=== PATIENT | male | born 1940 | race Caucasian/White ===

== ENCOUNTER 2020-10-29 07:11 | Outpatient (CLI) | payer MEDICARE, SELFPAY ==
[2020-10-29 07:34] LABS: Add Urine Microscopic? YES; Appearance Urine Clear (Clear); Bilirubin Urine Negative (Negative); Blood Urine 1+ (Negative); Color Urine Yellow (Yellow); Glucose Urine UA Negative (Negative); Ketones Urine Negative (Negative); Leukocyte Esterase Ur Negative (Negative); Nitrate Urine Negative (Negative); Protein Urine Negative (Negative); Specific Grav Ur 1.025 (1.010-1.020)
[2020-10-29 07:38] LABS: Hemoglobin A1C 5.7 % (<5.7)
[2020-10-29 07:39] LABS: WBC Urine 0-3 /hpf (0-3)
[2020-10-29 07:40] LABS: Bacteria Urine None seen /hpf
[2020-10-29 07:54] LABS: Creatinine Urine 181.15 mg/dL (40-278); MALB Creatinine Ratio 7.1 mg/g (0-30); Microalbumin Urine Random < 13.0 mg/L
[2020-10-29 09:11] LABS: Alanine Aminotransferase 26 U/L (16-63); Albumin Level 4.1 g/dL (3.4-5.0); Alkaline Phosphatase 61 U/L (46-116); Anion Gap 6 mmol/L (8-16); Aspartate Amino Transferase 20 U/L (15-37); Bilirubin,Total 0.7 mg/dL (0.00-1.00); Blood Urea Nitrogen 23 mg/dL (7-18); Calcium 8.6 mg/dL (8.5-10.1); Carbon Dioxide 31 mmol/L (21-32); Chloride 106 mmol/L (98-108); Cholesterol 160 mg/dL (0-200); Creatine Kinase 85 U/L (39-308); Estimated Glomerular Filt Rate > 60; Glucose 84 mg/dL (70-99); HDL Direct 39 mg/dL (40-60); LDL Cholesterol Calculated 100 mg/dL (<130); Osmolality Calculated 298 mOsm/kg (285-295); Sodium 143 mmol/L (136-145); Total Protein 6.7 g/dL (6.4-8.2); Triglycerides 106 mg/dL (0-150)
== END 2020-10-29 07:12 | disposition home or self-care (01) ==
LOC: CHSLAB 07:12
PROVIDERS: PCP Internal Medicine; Visit Provider Internal Medicine
DX: E78.2 Mixed hyperlipidemia (principal); I10 Essential (primary) hypertension; R73.01 Impaired fasting glucose
CPT/HCPCS: 36415; 80053; 80061; 81001; 82043; 82550; 83036

== ENCOUNTER 2020-11-28 08:59 | Outpatient (CLI) | payer MEDICARE, SELFPAY ==
[2020-11-28 09:43] LABS: SARS-CoV-2 Ag Negative (Negative)
== END 2020-11-28 09:00 | disposition home or self-care (01) ==
LOC: CHSLAB 09:01
PROVIDERS: PCP Internal Medicine; Visit Provider Internal Medicine
DX: Z20.828 Contact with and (suspected) exposure to other viral communicable diseases (principal)
CPT/HCPCS: 87426

== ENCOUNTER 2021-04-30 07:03 | Outpatient (CLI) | payer MEDICARE, SELFPAY ==
[2021-04-30 07:28] LABS: Add Urine Microscopic? YES; Appearance Urine Clear (Clear); Bilirubin Urine Negative (Negative); Blood Urine 1+ (Negative); Color Urine Yellow (Yellow); Glucose Urine UA Negative (Negative); Ketones Urine Negative (Negative); Leukocyte Esterase Ur Negative (Negative); Nitrate Urine Negative (Negative); Protein Urine Negative (Negative); Specific Grav Ur 1.025 (1.010-1.020); Urobilinogen Urine 0.2 mg/dL (0.2-1.0)
[2021-04-30 08:08] LABS: Bacteria Urine Trace /hpf; RBC Urine 0-2 /hpf (0-2); WBC Urine None seen /hpf (0-3)
[2021-04-30 08:09] LABS: Mucus Urine Moderate /lpf
[2021-04-30 08:10] LABS: Hemoglobin A1C 5.6 % (<5.7)
[2021-04-30 08:33] LABS: Alanine Aminotransferase 20 U/L (16-63); Alkaline Phosphatase 70 U/L (46-116); Anion Gap 6 mmol/L (8-16); Aspartate Amino Transferase 14 U/L (15-37); Bilirubin,Total 0.8 mg/dL (0.00-1.00); Blood Urea Nitrogen 19 mg/dL (7-18); Calcium 8.9 mg/dL (8.5-10.1); Carbon Dioxide 33 mmol/L (21-32); Chloride 103 mmol/L (98-108); Cholesterol 152 mg/dL (0-200); Creatine Kinase 63 U/L (39-308); Estimated Glomerular Filt Rate > 60; Glucose 91 mg/dL (70-99); HDL Direct 40 mg/dL (40-60); LDL Cholesterol Calculated 94 mg/dL (<130); Osmolality Calculated 296 mOsm/kg (285-295); Sodium 142 mmol/L (136-145); Total Protein 6.6 g/dL (6.4-8.2); Triglycerides 92 mg/dL (0-150)
== END 2021-04-30 07:04 | disposition home or self-care (01) ==
LOC: CHSLAB 07:06
PROVIDERS: PCP Internal Medicine; Visit Provider Internal Medicine
DX: I10 Essential (primary) hypertension (principal); R73.01 Impaired fasting glucose; E78.2 Mixed hyperlipidemia
CPT/HCPCS: 36415; 80053; 80061; 81001; 82550; 83036

== ENCOUNTER 2021-05-24 15:37 | Emergency (ER) | payer MEDICARE, SELFPAY ==
--- NOTE | ~2021-05-24 | CT_ITS ---
EXAMINATION: CT abdomen pelvis w con DATE: 05/24/2021 17:31 INDICATION: Left lower quadrant abdominal pain. Diverticulitis. TECHNIQUE: Computed tomography (CT) of the abdomen and pelvis was performed with 100 mL Omnipaque 350 intravenous contrast. Automated exposure control and iterative reconstruction technique were employe d. The dose-length product was 1289.57 mGy-cm. COMPARISON: CT abdomen and pelvis 12/26/2013 FINDINGS: The visualized portions of the lung bases demonstrate mild atelectasis. A calcified right l marylou nodule is consistent with old granulomatous disease. No pleural effusion. The heart size is sergei l. There are coronary artery calcifications. No pericardial effusion. A calcification in the liver is consistent with old granulomatous disease. The spleen is normal. There is a gallstone in the gallbla dder, which is normal in size. The pancreas and adrenal glands are normal. There are cysts in the kid neys measuring up to 17 mm on the right. There is a 4.9 cm fusiform infrarenal aortic aneurysm. The p rostate is severely enlarged. There are scattered diverticula in the colon. There is fat stranding ar ound a diverticulum in the sigmoid colon with local bowel wall thickening, consistent with diverticul itis. The appendix is normal. There are no dilated loops of bowel. There are no pathologically enlarg ed lymph nodes. There is no free intraperitoneal fluid. There is moderate lumbar spondylosis. There i s mild thoracic spondylosis. IMPRESSION: 1. Acute sigmoid diverticulitis. No perforation or abscess. 2. 4.9 cm fusiform infrarenal aortic aneurysm, increased from 4.2 cm on 12/26/2013. Reviewed, dictated and finalized at location A. IMPRESSION: 1. Acute sigmoid diverticulitis. No perforation or abscess. 2. 4.9 cm fusiform infrarenal aortic aneurysm, increased from 4.2 cm on 12/26/19 14.
[2021-05-24 15:54] VITALS: BP 138/77; PULSE 67; RESP 20; TEMP 36.6; O2SAT 96
[2021-05-24 16:31] LABS: Basophils Absolute Auto 0.04 K/mm3 (0.00-0.10); Basophils Percent Auto 0.3 % (0.0-1.0); Eosinophils Absolute Auto 0.23 K/mm3 (0.02-0.50); Eosinophils Percent Auto 1.8 % (1.0-6.0); Hematocrit 41.1 % (37.0-46.0); Hemoglobin 13.8 g/dL (12.4-15.3); Immature Granulocyte Absolute 0.04 K/mm3 (0.00-0.00); Immature Granulocyte Percent A 0.3 % (0.0-0.0); Lymphocytes Absolute Auto 3.21 K/mm3 (1.10-4.50); Lymphocytes Percent Auto 24.9 % (18.0-42.0); Mean Corpuscular HGB Conc 33.6 g/dL (32.0-36.0); Mean Corpuscular Hemoglobin 31.8 pg (27.0-31.0); Mean Corpuscular Volume 94.7 fL (78.0-102.0); Mean Platelet Volume 11.1 fl (8.7-11.0); Monocytes Absolute Auto 1.12 K/mm3 (0.10-0.90); Monocytes Percent Auto 8.7 % (2.0-11.0); Neutrophils Absolute Auto 8.3 K/mm3 (1.7-7.2); Platelet Count Result 184 K/mm3 (150-420); Red Blood Count 4.34 M/mm3 (4.70-6.10); Red Cell Distribution Width 13.3 % (11.6-14.4); White Blood Count 12.9 K/mm3 (4.8-10.8)
[2021-05-24 16:33] LABS: Add Urine Microscopic? YES; Appearance Urine Clear (Clear); Bilirubin Urine Negative (Negative); Blood Urine 1+ (Negative); Color Urine Light Yellow (Yellow); Glucose Urine UA Negative (Negative); Ketones Urine Negative (Negative); Leukocyte Esterase Ur Negative LEU/UL (Negative); Nitrate Urine Negative (Negative); Protein Urine Negative (Negative); pH Urine 6.5 (5.0-8.0)
[2021-05-24 16:45] LABS: Alanine Aminotransferase 20 U/L (16-63); Albumin Level 3.7 g/dL (3.4-5.0); Alkaline Phosphatase 71 U/L (46-116); Anion Gap 12 mmol/L (8-16); Aspartate Amino Transferase 17 U/L (15-37); Bilirubin,Total 0.8 mg/dL (0.00-1.00); Blood Urea Nitrogen 19 mg/dL (7-18); CRP 3.2 mg/dL (0.0-0.9); Calcium 8.4 mg/dL (8.5-10.1); Carbon Dioxide 27 mmol/L (21-32); Chloride 101 mmol/L (98-108); Estimated CRCL calculation 78 ml/min; Estimated Glomerular Filt Rate > 60; Glucose 106 mg/dL (70-99); Osmolality Calculated 292 mOsm/kg (285-295); Potassium 3.7 mmol/L (3.5-5.1); Sodium 140 mmol/L (136-145); Total Protein 6.8 g/dL (6.4-8.2)
[2021-05-24 16:51] LABS: Bacteria Urine None seen /hpf; RBC Urine 0-2 /hpf (0-2); WBC Urine None seen /hpf (0-3)
--- NOTE | 2021-05-24 17:07 | ED.ABDPAIN ---
HPI - Abdominal Pain General Chief Complaint: Abdominal Pain Stated Complaint: abd pain Time Seen by Provider: 05/24/21 16:05 Source: patient Mode of arrival: ambulatory Limitations: no limitations History of Present Illness HPI narrative: Patient comes in with LLQ abdominal pain since this am. Pain has been moderately severe, sharp, off and on, worse with change in position, ongoing since 9am. He denies fever and chills. He states this feels like his previous diverticulitis. MD elicited complaint: abdominal pain Pertinent past history: diverticulitis Onset (ago): hour(s) Pain Consistency: intermittent Location: LLQ Severity: moderate Quality: stabbing Migration to: no migration Exacerbating factors: movement Relieving factors: other (spontaneous relief) Associated symptoms: denies other symptoms Related Data Home Medications Medication Instructions Recorded Confirmed carvedilol 12.5 mg PO BID 05/24/21 05/24/21 finasteride 5 mg PO DAILY 05/24/21 05/24/21 lisinopril-hydrochlorothiazide 1 tablet PO DAILY 05/24/21 05/24/21 lovastatin 40 mg PO HS 05/24/21 05/24/21 tamsulosin 0.4 mg PO HS 05/24/21 05/24/21 Allergies Allergy/AdvReac Type Severity Reaction Status Date / Time No Known Allergies Allergy Unknown Unverified 07/29/16 07:04 Review of Systems Constitutional: Constitutional: Reports no additional constitutional complaints Eyes: Eyes: Reports no additional eye complaints ENT: Reports system reviewed and no additional complaints, except as documented Cardiovascular: Cardiovascular: Reports no additional cardiovascular complaints Respiratory: Respiratory: Reports no additional respiratory complaints Gastrointestinal: Gastrointestinal: Reports no additional gastrointestinal complaints Genitourinary: Genitourinary: Reports no additional male genitourinary complaints Musculoskeletal: Musculoskeletal: Reports no additional musculoskeletal complaints Integumentary/Breasts: Skin/Breast: Reports system reviewed and no additional complaints, except as docu Neurologic: Reports system reviewed and no additional complaints, except as documented Psychiatric: Psychiatric: Reports no additional psychiatric complaints Endocrine: Endocrine: Reports no additional endocrine complaints Hematologic/Lymphatic: Hematologic/Lymphatic: Reports no additional hematologic/lymphatic complaints Allergic/Immunologic: Allergic/Immunologic: Reports no additional allergic/immunologic complaints PMFSH Past Medical History Medical History (Updated 05/24/21 @ 18:14 by Rodolfo Henry MD) Abdominal aortic aneurysm BPH (benign prostatic hyperplasia) Diverticulitis Surgical History Surgical History (Updated 05/24/21 @ 18:15 by Rodolfo Henry MD) No significant past surgical history Family History Family History (Updated 05/24/21 @ 18:15 by Rodolfo Henry MD) Father Heart disease Mother Carcinoma of colon Social History Social History (Updated 05/24/21 @ 18:16 by Rodolfo Henry MD) Smoking status: Former smoker Smoking end date: 11/29/79 Alcohol intake: never Substance use: never Living arrangements: with family Occupation/Education: retired Gender identity (if verbalized by the patient): Male Exam Const: General: no acute distress and alert Orientation/consciousness: patient oriented x3 HENMT: Head: normal to inspection Ears: external ears normal and TM's normal bilaterally General nose exam: Normal external nose present and Normal nares present Face and sinus: normal facial exam Mouth: Yes Normal oral and palatal mucosa present Throat: posterior oropharynx normal Eyes: Conjunctivae: conjunctivae normal Neck: Neck: normal visual inspection and no lymphadenopathy Chest: Chest palpation & inspection: normal inspection of the chest Resp: Effort & Inspection: normal respiratory effort Auscultation: clear to auscultation bilaterally Cardio: Rate: regular rate Rhythm: regular rhythm
[2021-05-24 17:30] LABS: Erythrocyte Sedimentation Rate 18 mm/hr (0-20)
[2021-05-24] MEDS: levoFLOXacin 500 MG/D5W 100 ML 500 MG/100 ML BAG 100 MG IVPB (17:49)
[2021-05-24] MEDS: metroNIDAZOLE 500 MG/ISO 100ML 500 MG/100 ML BAG 100 MG IVPB (18:44)
[2021-05-24 18:49] VITALS: BP 132/75; PULSE 78; RESP 18; O2SAT 97
--- NOTE | 2021-05-24 18:50 | PC.NURSE ---
Report to VIKI Arana
--- NOTE | 2021-05-24 18:59 | PC.NURSE ---
pt sitting up in chair, resumed care from alanna nolasco. no concerns from pt at this time. Flagyl infusing without difficulty at this time.
[2021-05-24 19:35] VITALS: BP 127/77; PULSE 74; RESP 20; TEMP 37.1; O2SAT 97
== END 2021-05-24 19:40 | disposition home or self-care (01) ==
PROVIDERS: Emergency Provider Emergency Medicine; PCP Internal Medicine
DX: K57.92 Diverticulitis of intestine, part unspecified, without perforation or abscess without bleeding (principal); Z87.891 Personal history of nicotine dependence
CPT/HCPCS: 36415; 74177; 80053; 81001; 85025; 85652; 86140; 87040; 96365; 96367; 99283; 99284; J1956; Q9967

== ENCOUNTER 2021-07-16 17:52 | Emergency (ER) | payer MEDICARE, SELFPAY ==
--- NOTE | ~2021-07-16 | XR_ITS ---
XR chest 1V portable DATE: 07/16/2021 18:38 INDICATION: Left-sided chest pain after lifting injury yesterday TECHNIQUE: Portable upright AP chest on 07/16/2021 at 1834 hours COMPARISON: 10/04/2019 2 view chest FINDINGS: Normal heart size. Aortic calcification and mild tortuosity. No hilar or mediastinal enlarg ement. The lungs are clear of infiltrate or consolidation. No pleural effusion or pulmonary vascular congest ion or pneumothorax. IMPRESSION: No active cardiopulmonary disease Reviewed, dictated and finalized at location A.
--- NOTE | 2021-07-16 18:02 | ECG_ITS ---
Measurements Intervals [place] Rate: 61 P: 61 WA: 182 QRS: -44 QRSD: 102 T: 56 QT: 411 QTc: 415 Interpretive Statements SINUS RHYTHM LEFT AXIS DEVIATION INCOMPLETE RIGHT BUNDLE BRANCH BLOCK DELAYED PRECORDIAL R/S TRANSITION BASELINE WANDER- I, II, III BORDERLINE ECG Electronically Signed On 07-17-2021 9:49:36 CDT by Zach Guzman D.O.
[2021-07-16 18:07] VITALS: BP 167/83; PULSE 59; RESP 20; TEMP 36.8; O2SAT 96
--- NOTE | 2021-07-16 18:15 | ED.GENADULT ---
HPI - General Adult General Chief complaint: Chest Pain Stated complaint: chest pain Source: patient Mode of arrival: ambulatory Limitations: no limitations History of Present Illness HPI narrative: Steve is an 81M with a PMH of diverticulitis, BPH, AAA, HLD, and HTN that presented to the ED with chest pain. It is a sharp twinge in his upper left chest that does not radiate. It started when he was lifting things into the back of his truck yesterday. He has no pain at rest but when he takes a very deep breath or moves his arm the wrong way he gets a twinge. He worked in the garden today and walked the dog before coming with no CP. He denies any SOB, N/V, lightheadedness, and syncope. Related Data Home Medications Medication Instructions Recorded Confirmed carvedilol 12.5 mg PO BID 05/24/21 07/16/21 finasteride 5 mg PO DAILY 05/24/21 07/16/21 lisinopril-hydrochlorothiazide 1 tablet PO DAILY 05/24/21 07/16/21 lovastatin 40 mg PO HS 05/24/21 07/16/21 tamsulosin 0.4 mg PO HS 05/24/21 07/16/21 aspirin [Adult Aspirin] 81 mg PO DAILY 07/16/21 07/16/21 Allergies Allergy/AdvReac Type Severity Reaction Status Date / Time No Known Allergies Allergy Unknown Unverified 07/29/16 07:04 Review of Systems Constitutional: Constitutional: Reports no additional constitutional complaints Eyes: Eyes: Reports no additional eye complaints ENT: Reports system reviewed and no additional complaints, except as documented Cardiovascular: Cardiovascular: Reports as per HPI Respiratory: Respiratory: Reports no additional respiratory complaints Gastrointestinal: Gastrointestinal: Reports no additional gastrointestinal complaints Genitourinary: Genitourinary: Reports no additional male genitourinary complaints Musculoskeletal: Musculoskeletal: Reports no additional musculoskeletal complaints Integumentary/Breasts: Skin/Breast: Reports system reviewed and no additional complaints, except as docu Neurologic: Reports system reviewed and no additional complaints, except as documented Psychiatric: Psychiatric: Reports no additional psychiatric complaints Endocrine: Endocrine: Reports no additional endocrine complaints Hematologic/Lymphatic: Hematologic/Lymphatic: Reports no additional hematologic/lymphatic complaints Allergic/Immunologic: Allergic/Immunologic: Reports no additional allergic/immunologic complaints [facility] Past Medical History Medical History Abdominal aortic aneurysm BPH (benign prostatic hyperplasia) Diverticulitis Surgical History Surgical History No significant past surgical history Family History Family History Father Heart disease Mother Carcinoma of colon Social History Social History Smoking status: Former smoker Smoking end date: 11/29/79 Alcohol intake: never Substance use: never Gender identity (if verbalized by the patient): Male Exam Const: General: no acute distress and alert; No confusion Orientation/consciousness: patient oriented x3 Limitations: No altered mental status HENMT: Head: normal to inspection Mouth: Yes Normal oral and palatal mucosa present Eyes: Conjunctivae: conjunctivae normal Pupils: Equal, round and reactive pupils present Neck: Neck: normal visual inspection Chest: Chest palpation & inspection: normal inspection of the chest Resp: Effort & Inspection: normal respiratory effort, not labored and not tachypneic Auscultation: clear to auscultation bilaterally Cardio: Rate: regular rate Rhythm: regular rhythm Heart sounds: no murmurs GI: Inspection: non-distended GI Palp: Yes Soft to palpation, No Tenderness to palpation present (GI) and No Guarding due to palpation present (GI) Skin: General skin exam: normal color Rashes: no rashes
[2021-07-16 18:46] LABS: Basophils Absolute Auto 0.03 K/mm3 (0.00-0.10); Basophils Percent Auto 0.3 % (0.0-1.0); Eosinophils Absolute Auto 0.31 K/mm3 (0.02-0.50); Hematocrit 42.4 % (37.0-46.0); Immature Granulocyte Absolute 0.02 K/mm3 (0.00-0.00); Immature Granulocyte Percent A 0.2 % (0.0-0.0); Lymphocytes Absolute Auto 3.73 K/mm3 (1.10-4.50); Lymphocytes Percent Auto 36.2 % (18.0-42.0); Mean Corpuscular Hemoglobin 31.7 pg (27.0-31.0); Mean Corpuscular Volume 95.9 fL (78.0-102.0); Mean Platelet Volume 10.3 fl (8.7-11.0); Monocytes Absolute Auto 0.83 K/mm3 (0.10-0.90); Monocytes Percent Auto 8.1 % (2.0-11.0); Neutrophils Absolute Auto 5.4 K/mm3 (1.7-7.2); Neutrophils Percent Auto 52.2 % (50.0-70.0); Platelet Count Result 188 K/mm3 (150-420); Red Blood Count 4.42 M/mm3 (4.70-6.10); Red Cell Distribution Width 13.4 % (11.6-14.4); White Blood Count 10.3 K/mm3 (4.8-10.8)
[2021-07-16 19:02] LABS: INR 1.1; Prothrombin Time 11.6 Seconds (9.50-12.10)
[2021-07-16 19:13] LABS: Alanine Aminotransferase 24 U/L (16-63); Alkaline Phosphatase 65 U/L (46-116); Anion Gap 11 mmol/L (8-16); Aspartate Amino Transferase 18 U/L (15-37); Bilirubin,Total 0.6 mg/dL (0.00-1.00); Blood Urea Nitrogen 24 mg/dL (7-18); Calcium 8.5 mg/dL (8.5-10.1); Carbon Dioxide 27 mmol/L (21-32); Chloride 106 mmol/L (98-108); Estimated CRCL calculation 55 ml/min; Estimated Glomerular Filt Rate 59; Glucose 98 mg/dL (70-99); NT Pro B Type Natriuretic Pept 94 pg/mL (0-450); Osmolality Calculated 302 mOsm/kg (285-295); Potassium 3.8 mmol/L (3.5-5.1); Sodium 144 mmol/L (136-145)
[2021-07-16 19:37] VITALS: BP 140/90; PULSE 57; RESP 20; TEMP 36.7; O2SAT 93
== END 2021-07-16 19:40 | disposition home or self-care (01) ==
PROVIDERS: Emergency Provider Family Medicine; PCP Internal Medicine
DX: R07.89 Other chest pain (principal); Z87.891 Personal history of nicotine dependence
CPT/HCPCS: 36415; 71045; 80053; 83880; 84484; 85025; 85610; 93005; 99282; 99284

== ENCOUNTER 2021-10-24 10:02 | Outpatient (CLI) | payer MEDICARE, SELFPAY ==
--- NOTE | ~2021-10-24 | XR_ITS ---
XR lumbar spine 2-3V 10/24/2021 10:42 Indication: Low back pain Procedure: 3 views of the lumbar spine Comparison: No prior studies for comparison. Findings: There is disc narrowing at all lumbar levels. There is advanced multilevel facet hypertroph y. No acute fracture, subluxation or dislocation. No evidence for spondylolisthesis. There is an lowe r abdominal aortic aneurysm, partially visualized. Impression: 1: Moderate lumbar spondylosis. 2: Partially visualized lower abdominal aortic aneurysm. Reviewed, dictated and finalized at location A. INSPECTOR Impression: 1: Moderate lumbar spondylosis. 2: Partially visualized lower abdominal aortic aneurysm.
--- NOTE | ~2021-10-24 | XR_ITS ---
XR sacroiliac joints min 3V 10/24/2021 10:42 Indication: Low back pain Procedure: 3 views of the sacroiliac joints Comparison: No prior studies for comparison. Findings: There is mild symmetric degenerative change of the sacroiliac joints. No erosive changes. N o evidence for ankylosis. There is osteoarthritis of the hips. Sacral foramen are symmetric. Impression: 1: Mild symmetric degenerative changes of the sacroiliac joints. Reviewed, dictated and finalized at location A. STRIAL CLEANER Impression: 1: Mild symmetric degenerative changes of the sacroiliac joints.
== END 2021-10-24 10:03 | disposition home or self-care (01) ==
LOC: CHSIMG 10:04
PROVIDERS: PCP Internal Medicine; Visit Provider Internal Medicine
DX: M54.50 Low back pain, unspecified (principal)
CPT/HCPCS: 72100; 72202

== ENCOUNTER 2021-10-29 07:18 | Outpatient (CLI) | payer MEDICARE, SELFPAY ==
[2021-10-29 07:41] LABS: Add Urine Microscopic? YES; Appearance Urine Clear (Clear); Bilirubin Urine Negative (Negative); Blood Urine 2+ (Negative); Color Urine Yellow (Yellow); Glucose Urine UA Negative (Negative); Ketones Urine Negative (Negative); Leukocyte Esterase Ur Negative (Negative); Nitrate Urine Negative (Negative); Protein Urine Negative (Negative); Specific Grav Ur 1.015 (1.010-1.020)
[2021-10-29 08:03] LABS: Hemoglobin A1C 5.8 % (<5.7)
[2021-10-29 08:09] LABS: Bacteria Urine Trace /hpf; Mucus Urine Few /lpf; WBC Urine None seen /hpf (0-3)
[2021-10-29 08:17] LABS: Alanine Aminotransferase 23 U/L (16-63); Albumin Level 3.9 g/dL (3.4-5.0); Alkaline Phosphatase 72 U/L (46-116); Anion Gap 9 mmol/L (8-16); Aspartate Amino Transferase 14 U/L (15-37); Bilirubin,Total 0.9 mg/dL (0.00-1.00); Blood Urea Nitrogen 20 mg/dL (7-18); Calcium 8.7 mg/dL (8.5-10.1); Carbon Dioxide 31 mmol/L (21-32); Chloride 104 mmol/L (98-108); Cholesterol 150 mg/dL (0-200); Creatine Kinase 68 U/L (39-308); Estimated Glomerular Filt Rate > 60; Glucose 91 mg/dL (70-99); HDL Direct 42 mg/dL (40-60); LDL Cholesterol Calculated 89 mg/dL (<130); Osmolality Calculated 300 mOsm/kg (285-295); Potassium 4.3 mmol/L (3.5-5.1); Sodium 144 mmol/L (136-145); Total Protein 6.8 g/dL (6.4-8.2); Triglycerides 93 mg/dL (0-150)
== END 2021-10-29 07:19 | disposition home or self-care (01) ==
LOC: CHSLAB 07:19
PROVIDERS: PCP Internal Medicine; Visit Provider Internal Medicine
DX: I10 Essential (primary) hypertension (principal); E78.2 Mixed hyperlipidemia; R73.01 Impaired fasting glucose
CPT/HCPCS: 36415; 80053; 80061; 81001; 82550; 83036

== ENCOUNTER 2021-10-29 16:17 | Emergency (ER) | payer MEDICARE, SELFPAY ==
--- NOTE | ~2021-10-29 | CT_ITS ---
EXAMINATION: CT abdomen pelvis w con DATE: 10/29/2021 18:20 INDICATION: Left abdominal pain. Constipation. TECHNIQUE: Computed tomography (CT) of the abdomen and pelvis was performed with 100 mL Omnipaque 350 intravenous contrast. Automated exposure control and iterative reconstruction technique were employe d. The dose-length product was 1291.34 mGy-cm. COMPARISON: CT abdomen and pelvis 05/24/2021 FINDINGS: The visualized portions of the lung bases demonstrate mild atelectasis. Calcified bilateral lung nodules and calcified right hilar lymph nodes are consistent with old granulomatous disease. No pleural effusion. The heart size is normal. There are coronary artery calcifications. No pericardial effusion. A calcification in the liver is consistent with old granulomatous disease. The gallbladder , spleen, pancreas, adrenal glands are normal. There are cysts in the kidneys measuring up to 17 mm o n the right. There is a 4.7 cm fusiform infrarenal aortic aneurysm. The prostate is severely enlarged . There is an umbilical hernia containing fat. There are scattered diverticula in the colon. There is fat stranding of a diverticulum of the junction of descending and sigmoid colon with local bowel wal l thickening, consistent with diverticulitis. The appendix is normal. There are no dilated loops of b owel. There are no pathologically enlarged lymph nodes. There is no free intraperitoneal fluid. There is mild thoracic spondylosis and moderate lumbar spondylosis. IMPRESSION: 1. Recurrent acute diverticulitis of the distal colon. No perforation or abscess. 2. 4.7 cm fusiform infrarenal aortic aneurysm, stable from 05/24/2021. Reviewed, dictated and finalized at location A. EN EQUIPMENT PREPARER IMPRESSION: 1. Recurrent acute diverticulitis of the distal colon. No perforation or absces s. 2. 4.7 cm fusiform infrarenal aortic aneurysm, stable from 05/24/2021.
[2021-10-29 16:47] VITALS: BP 143/83; PULSE 70; RESP 18; TEMP 37.4; O2SAT 97
--- NOTE | 2021-10-29 17:03 | ED.ABDPAIN ---
HPI - Abdominal Pain General Chief Complaint: Abdominal Pain Stated Complaint: side pain Time Seen by Provider: 10/29/21 17:41 Source: patient Mode of arrival: ambulatory Limitations: no limitations History of Present Illness HPI narrative: 81-year-old man with a history diverticulitis and a AAA comes in today complaining of right-sided abdominal pain that has gotten worse over the last 3 days. Patient states that the pain is worse with movement. He also has not had a bowel movement for 2 or 3 days. He has had no blood in his stool, vomiting, fever, and has been able to eat and drink without difficulty. He denies cough or cold symptoms or sick exposures. MD elicited complaint: abdominal pain Pertinent past history: diverticulitis Onset (ago): day(s) (3) Pain Consistency: constant and colicky Location: LUQ Severity: moderate Quality: cramping and sharp Radiation: none Migration to: no migration Exacerbating factors: movement and other (Palpation) Relieving factors: nothing Related Data Home Medications Medication Instructions Recorded Confirmed carvedilol 12.5 mg PO BID 05/24/21 07/16/21 finasteride 5 mg PO DAILY 05/24/21 07/16/21 lisinopril-hydrochlorothiazide 1 tablet PO DAILY 05/24/21 07/16/21 lovastatin 40 mg PO HS 05/24/21 07/16/21 tamsulosin 0.4 mg PO HS 05/24/21 07/16/21 aspirin [Adult Aspirin] 81 mg PO DAILY 07/16/21 07/16/21 Allergies Allergy/AdvReac Type Severity Reaction Status Date / Time No Known Allergies Allergy Unknown Unverified 07/29/16 07:04 Review of Systems Review of Systems: All systems reviewed & are unremarkable except as noted in HPI and below Constitutional: Constitutional: Denies chills and Denies fever(s) ENT: Denies nasal congestion and Denies sore throat Cardiovascular: Cardiovascular: Denies chest pain and Denies radiating jaw, neck or arm pain Respiratory: Respiratory: Denies cough and Denies dyspnea Gastrointestinal: Gastrointestinal: Reports abdominal pain, Reports constipation, Denies diarrhea, Denies nausea and Denies vomiting Genitourinary: Genitourinary: Denies hematuria, Denies dysuria and Denies urinary frequency Musculoskeletal: Musculoskeletal: Denies back pain, Denies arthralgias and Denies joint swelling Integumentary/Breasts: Skin/Breast: Denies pruritus, Denies erythema and Denies rash Neurologic: Denies vertigo, Denies dizziness, Denies syncope, Denies focal weakness and Denies weakness Hematologic/Lymphatic: Hematologic/Lymphatic: Denies easy bleeding Allergic/Immunologic: Allergic/Immunologic: Denies lip swelling and Denies throat swelling [facility] Past Medical History Medical History Abdominal aortic aneurysm BPH (benign prostatic hyperplasia) Diverticulitis Surgical History Surgical History No significant past surgical history Family History Family History Father Heart disease Mother Carcinoma of colon Social History Social History Smoking status: Former smoker Smoking end date: 11/29/79 Alcohol intake: never Substance use: never Gender identity (if verbalized by the patient): Male Exam Const: General: healthy appearing and alert Orientation/consciousness: patient oriented x3 Limitations: no limitations Other: Mild acute distress. Eyes: Conjunctivae: conjunctivae normal Pupils: Equal, round and reactive pupils present EOM: EOMs intact bilaterally Other: Anicteric Resp: Effort & Inspection: normal respiratory effort and not labored Auscultation: clear to auscultation bilaterally, no rales, no rhonchi and no wheezes Cardio: Rate: regular rate Rhythm: regular rhythm Heart sounds: no murmurs GI: GI Palp: Yes Soft to palpation, Yes Tenderness to palpation present (GI) (Right upper quadrant point tendern
--- NOTE | 2021-10-29 18:02 | PC.NURSE ---
Radiology notified pt has an IV and is ready for scan.
[2021-10-29 18:13] LABS: Basophils Absolute Auto 0.04 K/mm3 (0.00-0.10); Basophils Percent Auto 0.3 % (0.0-1.0); Eosinophils Absolute Auto 0.25 K/mm3 (0.02-0.50); Eosinophils Percent Auto 1.8 % (1.0-6.0); Hematocrit 43.1 % (37.0-46.0); Hemoglobin 14.1 g/dL (12.4-15.3); Immature Granulocyte Absolute 0.05 K/mm3 (0.00-0.00); Immature Granulocyte Percent A 0.4 % (0.0-0.0); Lymphocytes Absolute Auto 2.63 K/mm3 (1.10-4.50); Lymphocytes Percent Auto 18.6 % (18.0-42.0); Mean Corpuscular HGB Conc 32.7 g/dL (32.0-36.0); Mean Corpuscular Hemoglobin 31.7 pg (27.0-31.0); Mean Corpuscular Volume 96.9 fL (78.0-102.0); Mean Platelet Volume 9.9 fl (8.7-11.0); Monocytes Absolute Auto 1.21 K/mm3 (0.10-0.90); Monocytes Percent Auto 8.5 % (2.0-11.0); Neutrophils Percent Auto 70.4 % (50.0-70.0); Platelet Count Result 184 K/mm3 (150-420); Red Blood Count 4.45 M/mm3 (4.70-6.10); Red Cell Distribution Width 13.3 % (11.6-14.4); White Blood Count 14.2 K/mm3 (4.8-10.8)
--- NOTE | 2021-10-29 19:28 | PC.NURSE ---
Report given to VIKI Gordillo
[2021-10-29] MEDS: metroNIDAZOLE 250 MG TABLET 500 MG PO (19:33)
[2021-10-29] MEDS: ONDANSETRON HCL ODT 4 MG TABLET PO (19:34)
--- NOTE | 2021-10-29 19:35 | PC.NURSE ---
Took pt report from Ioana DREW. pt sitting up on stretcher full dressed pleasent affect and easil;y approachable. No c/o Pain or discomfort at this time. D/c orders recieved from ERMD. # 18 Gauge saline lock removed at this time intact.
[2021-10-29 19:54] VITALS: BP 144/79; PULSE 70; RESP 18; TEMP 36.8; O2SAT 97
== END 2021-10-29 19:58 | disposition home or self-care (01) ==
PROVIDERS: Emergency Provider Emergency Medicine; PCP Internal Medicine
DX: K57.92 Diverticulitis of intestine, part unspecified, without perforation or abscess without bleeding (principal); Z87.891 Personal history of nicotine dependence
CPT/HCPCS: 36415; 74177; 85025; 99283; 99284; A9270; Q9967

== ENCOUNTER 2022-02-20 00:40 | Day surgery (SDC) | payer MEDICARE, SELFPAY ==
[2022-02-05 15:01] VITALS: BMI 33.5
[2022-02-20 07:48] VITALS: BP 146/72; PULSE 57; RESP 18; TEMP 35.9; O2SAT 96; BMI 33.5
[2022-02-20] MEDS: LACTATED RINGERS 1,000 ML 150 ML IV CONT (07:59)
--- NOTE | 2022-02-20 08:09 | WPDHPUPDATE1 ---
History and Physical Update Update Date/Time: 02/20/22 08:09 History and Physical has been reviewed, including an updated exam of the patient. There are NO changes in the patient's condition. Risks, benefits, and alternatives have been discussed and questions answered. Patient agrees to proceed with procedure.
--- NOTE | 2022-02-20 08:16 | P.PNAN_ITS ---
Anes - Initial Pre Proc Eval Procedure: Operation Date: 02/20/22 08:30 Proposed Procedures p Colonoscopy - Rodolfo Matias MD Date/Time: 02/20/22 08:16 Surgeon: Rodolfo Matias MD Pre Op Diagnosis: diverticulitis Patient Data Age: 81 Gender: M Height: 1.78 m Weight: 106 kg Last Vital Signs Temp 35.9 C L 02/20/22 07:48 Pulse 57 L 02/20/22 07:48 Resp 18 02/20/22 07:48 BP 146/72 H 02/20/22 07:48 Pulse Ox 96 02/20/22 07:48 Allergies Allergy/AdvReac Type Severity Reaction Status Date / Time ciprofloxacin [From Cipro] AdvReac Mild Unknown Verified 02/05/22 14:59 metronidazole AdvReac itching Verified 02/05/22 14:59 Home Medications Medication Instructions Recorded Confirmed Type carvedilol 12.5 mg PO BID 05/24/21 02/05/22 History finasteride 5 mg PO DAILY 05/24/21 02/05/22 History lisinopril-hydrochlorothiazide 1 tablet PO DAILY 05/24/21 02/05/22 History lovastatin 40 mg PO HS 05/24/21 02/05/22 History tamsulosin 0.4 mg PO HS 05/24/21 02/05/22 History aspirin [Adult Aspirin] 81 mg PO DAILY 07/16/21 02/05/22 History Patient hx anesthesia problems: none Family hx anesthesia problems: none Results Review: All pre-operative results and documents have been reviewed as part of the pre-operative evaluation. [facility] Past Medical History Medical History Abdominal aortic aneurysm BPH (benign prostatic hyperplasia) Diverticulitis Hyperlipidemia Hypertension Surgical History Surgical History History of carpal tunnel release 2021 No significant past surgical history Family History Family History Father Heart disease Mother Carcinoma of colon Social History Social History Smoking packs per day: 1.5 Smoking cigarettes per day: 30.0 Smoking status: Former smoker Tobacco type: cigarettes Smoking end date: 11/29/79 Alcohol intake: never Substance use: never Substance use type: does not use Living arrangements: with family Gender identity (if verbalized by the patient): Male Sexual Orientation (if Verbalized by the Patient): Straight or Heterosexual Spiritual care concerns: No Anes - Eval Final PreProcedure Day of Procedure 02/20/22 08:16 Patient weight: obese Heart: regular rate and rhythm Lungs: decreased breath sounds Airway: Mallampati scale class II Neurological: alert and oriented Last oral intake: >/= 8 hours ASA classification: III Emergent: no Anesthetic plan: proceed Anesthesia type and monitoring: general GIVS and standard monitoring Results Review: All pre-operative results and documents have been reviewed as part of the pre-operative evaluation. Informed Consent: The patient's anesthetic plan and its attendant risks and benefits were discussed with the patient/family/POA. Questions were solicited and answers provided to the satisfaction of the patient/family/POA.
[2022-02-20 09:06] VITALS: BP 120/62; PULSE 55; RESP 14; O2SAT 96
[2022-02-20 09:16] VITALS: BP 120/77; PULSE 52; RESP 14; O2SAT 99
[2022-02-20 09:26] VITALS: BP 121/70; PULSE 50; RESP 21; O2SAT 98
== END 2022-02-20 09:34 | disposition home or self-care (01) ==
PROVIDERS: PCP Internal Medicine; Visit Provider Internal Medicine Gastroenterology
PROC: 0DJD8ZZ Inspection of Lower Intestinal Tract, Via Natural or Artificial Opening Endoscopic (ICD-10-PCS; CPT 45378; principal; 2022-02-20 08:30)
DX: Z09 Encounter for follow-up examination after completed treatment for conditions other than malignant neoplasm (principal); K57.30 Diverticulosis of large intestine without perforation or abscess without bleeding; K64.8 Other hemorrhoids; Z87.19 Personal history of other diseases of the digestive system; Z79.82 Long term (current) use of aspirin; N40.0 Benign prostatic hyperplasia without lower urinary tract symptoms; I71.4 Abdominal aortic aneurysm, without rupture; E78.5 Hyperlipidemia, unspecified; I10 Essential (primary) hypertension; Z80.0 Family history of malignant neoplasm of digestive organs; Z87.891 Personal history of nicotine dependence; E66.9 Obesity, unspecified; Z68.33 Body mass index [BMI] 33.0-33.9, adult
CPT/HCPCS: 45378; J2704; J7120

== ENCOUNTER 2022-04-30 07:14 | Outpatient (CLI) | payer MEDICARE, SELFPAY ==
[2022-04-30 07:43] LABS: Appearance Urine Clear (Clear); Basophils Absolute Auto 0.04 K/mm3 (0.00-0.10); Basophils Percent Auto 0.4 % (0.0-1.0); Bilirubin Urine Negative (Negative); Color Urine Yellow (Yellow); Eosinophils Absolute Auto 0.36 K/mm3 (0.02-0.50); Eosinophils Percent Auto 3.7 % (1.0-6.0); Glucose Urine UA Negative (Negative); Hematocrit 43.1 % (37.0-46.0); Immature Granulocyte Absolute 0.03 K/mm3 (0.00-0.00); Immature Granulocyte Percent A 0.3 % (0.0-0.0); Ketones Urine Negative (Negative); Leukocyte Esterase Ur Negative (Negative); Lymphocytes Absolute Auto 3.14 K/mm3 (1.10-4.50); Lymphocytes Percent Auto 32.2 % (18.0-42.0); Mean Corpuscular HGB Conc 32.5 g/dL (32.0-36.0); Mean Corpuscular Hemoglobin 31.7 pg (27.0-31.0); Mean Corpuscular Volume 97.5 fL (78.0-102.0); Mean Platelet Volume 10.7 fl (8.7-11.0); Monocytes Absolute Auto 0.71 K/mm3 (0.10-0.90); Monocytes Percent Auto 7.3 % (2.0-11.0); Neutrophils Absolute Auto 5.5 K/mm3 (1.7-7.2); Neutrophils Percent Auto 56.1 % (50.0-70.0); Nitrate Urine Negative (Negative); Platelet Count Result 174 K/mm3 (150-420); Protein Urine Negative (Negative); Red Blood Count 4.42 M/mm3 (4.70-6.10); Red Cell Distribution Width 13.4 % (11.6-14.4); White Blood Count 9.8 K/mm3 (4.8-10.8); pH Urine 6.5 (5.0-8.0)
[2022-04-30 07:50] LABS: Add Urine Microscopic? YES; Bacteria Urine Trace /hpf; Blood Urine Trace-Intact (Negative); RBC Urine 0-2 /hpf (0-2); WBC Urine None seen /hpf (0-3)
[2022-04-30 07:53] LABS: Hemoglobin A1C 5.8 % (<5.7)
[2022-04-30 08:10] LABS: Alanine Aminotransferase 20 U/L (16-63); Albumin Level 3.9 g/dL (3.4-5.0); Alkaline Phosphatase 68 U/L (46-116); Anion Gap 5 mmol/L (8-16); Aspartate Amino Transferase 15 U/L (15-37); Bilirubin,Total 0.9 mg/dL (0.00-1.00); Blood Urea Nitrogen 20 mg/dL (7-18); Calcium 8.7 mg/dL (8.5-10.1); Carbon Dioxide 31 mmol/L (21-32); Chloride 103 mmol/L (98-108); Cholesterol 145 mg/dL (0-200); Creatine Kinase 68 U/L (39-308); Estimated Glomerular Filt Rate > 60; Glucose 94 mg/dL (70-99); HDL Direct 42 mg/dL (40-60); LDL Cholesterol Calculated 79 mg/dL (<130); Osmolality Calculated 290 mOsm/kg (285-295); Sodium 139 mmol/L (136-145); Total Protein 6.6 g/dL (6.4-8.2); Triglycerides 119 mg/dL (0-150)
== END 2022-04-30 07:15 | disposition home or self-care (01) ==
LOC: CHSLAB 07:17
PROVIDERS: PCP Internal Medicine; Visit Provider Internal Medicine
DX: E78.2 Mixed hyperlipidemia (principal); I10 Essential (primary) hypertension; R73.01 Impaired fasting glucose; N40.1 Benign prostatic hyperplasia with lower urinary tract symptoms; M25.512 Pain in left shoulder
CPT/HCPCS: 36415; 80053; 80061; 81001; 82550; 83036; 85025

== ENCOUNTER 2022-08-06 10:41 | Outpatient (CLI) | payer MEDICARE, SELFPAY ==
[2022-08-06 11:05] LABS: Basophils Absolute Auto 0.03 K/mm3 (0.00-0.10); Basophils Percent Auto 0.2 % (0.0-1.0); Eosinophils Absolute Auto 0.31 K/mm3 (0.02-0.50); Eosinophils Percent Auto 2.3 % (1.0-6.0); Hemoglobin 14.3 g/dL (12.4-15.3); Immature Granulocyte Absolute 0.06 K/mm3 (0.00-0.00); Immature Granulocyte Percent A 0.4 % (0.0-0.0); Lymphocytes Absolute Auto 3.03 K/mm3 (1.10-4.50); Lymphocytes Percent Auto 22.1 % (18.0-42.0); Mean Corpuscular HGB Conc 32.5 g/dL (32.0-36.0); Mean Corpuscular Hemoglobin 31.8 pg (27.0-31.0); Mean Corpuscular Volume 97.8 fL (78.0-102.0); Mean Platelet Volume 10.6 fl (8.7-11.0); Monocytes Absolute Auto 0.99 K/mm3 (0.10-0.90); Monocytes Percent Auto 7.2 % (2.0-11.0); Neutrophils Absolute Auto 9.3 K/mm3 (1.7-7.2); Neutrophils Percent Auto 67.8 % (50.0-70.0); Platelet Count Result 186 K/mm3 (150-420); Red Cell Distribution Width 13.3 % (11.6-14.4); White Blood Count 13.7 K/mm3 (4.8-10.8)
[2022-08-06 11:23] LABS: Alanine Aminotransferase 20 U/L (16-63); Albumin Level 4.1 g/dL (3.4-5.0); Alkaline Phosphatase 71 U/L (46-116); Anion Gap 7 mmol/L (8-16); Aspartate Amino Transferase 18 U/L (15-37); Blood Urea Nitrogen 24 mg/dL (7-18); Calcium 8.9 mg/dL (8.5-10.1); Carbon Dioxide 31 mmol/L (21-32); Chloride 102 mmol/L (98-108); Estimated Glomerular Filt Rate > 60; Glucose 96 mg/dL (70-99); Osmolality Calculated 294 mOsm/kg (285-295); Potassium 4.1 mmol/L (3.5-5.1); Sodium 140 mmol/L (136-145); Total Protein 7.1 g/dL (6.4-8.2)
== END 2022-08-06 10:42 | disposition home or self-care (01) ==
LOC: CHSLAB 10:43
PROVIDERS: PCP Internal Medicine; Visit Provider Internal Medicine
DX: R10.32 Left lower quadrant pain (principal)
CPT/HCPCS: 36415; 80053; 85025

== ENCOUNTER 2022-08-18 07:05 | Outpatient (CLI) | payer MEDICARE, SELFPAY ==
[2022-08-18 07:21] LABS: Basophils Absolute Auto 0.05 K/mm3 (0.00-0.10); Basophils Percent Auto 0.5 % (0.0-1.0); Eosinophils Absolute Auto 0.38 K/mm3 (0.02-0.50); Eosinophils Percent Auto 3.6 % (1.0-6.0); Hematocrit 41.5 % (37.0-46.0); Hemoglobin 13.6 g/dL (12.4-15.3); Immature Granulocyte Absolute 0.05 K/mm3 (0.00-0.00); Immature Granulocyte Percent A 0.5 % (0.0-0.0); Lymphocytes Percent Auto 30.7 % (18.0-42.0); Mean Corpuscular HGB Conc 32.8 g/dL (32.0-36.0); Mean Corpuscular Hemoglobin 31.5 pg (27.0-31.0); Mean Corpuscular Volume 96.1 fL (78.0-102.0); Mean Platelet Volume 9.9 fl (8.7-11.0); Monocytes Absolute Auto 0.71 K/mm3 (0.10-0.90); Monocytes Percent Auto 6.8 % (2.0-11.0); Neutrophils Percent Auto 57.9 % (50.0-70.0); Platelet Count Result 202 K/mm3 (150-420); Red Blood Count 4.32 M/mm3 (4.70-6.10); Red Cell Distribution Width 13.4 % (11.6-14.4); White Blood Count 10.4 K/mm3 (4.8-10.8)
== END 2022-08-18 07:06 | disposition home or self-care (01) ==
LOC: CHSLAB 07:08
PROVIDERS: PCP Internal Medicine; Visit Provider Internal Medicine
DX: D72.829 Elevated white blood cell count, unspecified (principal)
CPT/HCPCS: 36415; 85025

== ENCOUNTER 2022-11-02 07:22 | Outpatient (CLI) | payer MEDICARE, SELFPAY ==
[2022-11-02 07:40] LABS: Add Urine Microscopic? YES; Appearance Urine Clear (Clear); Bilirubin Urine Negative (Negative); Blood Urine 2+ (Negative); Color Urine Yellow (Yellow); Glucose Urine UA Negative (Negative); Ketones Urine Negative (Negative); Leukocyte Esterase Ur Trace (Negative); Nitrate Urine Negative (Negative); Protein Urine Negative (Negative); Specific Grav Ur 1.025 (1.010-1.020)
[2022-11-02 07:47] LABS: Hemoglobin A1C 5.7 % (<5.7)
[2022-11-02 08:00] LABS: WBC Urine None seen /hpf (0-3)
[2022-11-02 08:01] LABS: Bacteria Urine Trace /hpf; Basophils Absolute Auto 0.05 K/mm3 (0.00-0.10); Basophils Percent Auto 0.5 % (0.0-1.0); Eosinophils Absolute Auto 0.31 K/mm3 (0.02-0.50); Eosinophils Percent Auto 3.2 % (1.0-6.0); Hematocrit 43.1 % (37.0-46.0); Hemoglobin 14.1 g/dL (12.4-15.3); Immature Granulocyte Absolute 0.02 K/mm3 (0.00-0.00); Immature Granulocyte Percent A 0.2 % (0.0-0.0); Lymphocytes Absolute Auto 3.25 K/mm3 (1.10-4.50); Lymphocytes Percent Auto 33.3 % (18.0-42.0); Mean Corpuscular HGB Conc 32.7 g/dL (32.0-36.0); Mean Corpuscular Hemoglobin 31.3 pg (27.0-31.0); Mean Corpuscular Volume 95.6 fL (78.0-102.0); Mean Platelet Volume 11.1 fl (8.7-11.0); Monocytes Absolute Auto 0.71 K/mm3 (0.10-0.90); Monocytes Percent Auto 7.3 % (2.0-11.0); Mucus Urine Few /lpf; Neutrophils Absolute Auto 5.4 K/mm3 (1.7-7.2); Neutrophils Percent Auto 55.5 % (50.0-70.0); Platelet Count Result 184 K/mm3 (150-420); Red Blood Count 4.51 M/mm3 (4.70-6.10); Red Cell Distribution Width 13.3 % (11.6-14.4); White Blood Count 9.8 K/mm3 (4.8-10.8)
[2022-11-02 08:21] LABS: Alanine Aminotransferase 21 U/L (16-63); Alkaline Phosphatase 71 U/L (46-116); Anion Gap 7 mmol/L (8-16); Aspartate Amino Transferase 18 U/L (15-37); Bilirubin,Total 0.6 mg/dL (0.00-1.00); Blood Urea Nitrogen 24 mg/dL (7-18); Calcium 8.4 mg/dL (8.5-10.1); Carbon Dioxide 31 mmol/L (21-32); Chloride 105 mmol/L (98-108); Cholesterol 153 mg/dL (0-200); Creatine Kinase 84 U/L (39-308); Estimated Glomerular Filt Rate > 60; Glucose 91 mg/dL (70-99); HDL Direct 48 mg/dL (40-60); LDL Cholesterol Calculated 90 mg/dL (<130); Osmolality Calculated 300 mOsm/kg (285-295); Potassium 4.1 mmol/L (3.5-5.1); Sodium 143 mmol/L (136-145); Total Protein 6.7 g/dL (6.4-8.2); Triglycerides 77 mg/dL (0-150)
== END 2022-11-02 07:23 | disposition home or self-care (01) ==
LOC: CHSLAB 07:24
PROVIDERS: PCP Internal Medicine; Visit Provider Internal Medicine
DX: R73.01 Impaired fasting glucose (principal); I10 Essential (primary) hypertension; E78.2 Mixed hyperlipidemia
CPT/HCPCS: 36415; 80053; 80061; 81001; 82550; 83036; 85025

== ENCOUNTER 2022-12-24 11:17 | Outpatient (CLI) | payer MEDICARE, SELFPAY ==
--- NOTE | ~2022-12-24 | XR_ITS ---
EXAMINATION: XR lumbar spine 2-3V DATE: 12/24/2022 11:43 INDICATION: Low back pain. TECHNIQUE: 3 views of lumbar spine were obtained. COMPARISON: Lumbar spine radiographs 10/24/2021 FINDINGS: There is 4 degrees dextrocurvature of lumbar spine. Vertebral body heights are normal. Ther e is mildly decreased disc height at L1-L2, L2-L3, L4-L5, and L5-S1. There are endplate osteophytes a t all levels. There is multilevel severe facet joint osteoarthrosis. There is a fusiform infrarenal a ortic aneurysm that likely measures greater than 5 cm. IMPRESSION: 1. Abdominal aortic aneurysm measuring greater than 5 cm. Abdomen and pelvis CTA is recommended. 2. Moderate lumbar spondylosis. Reviewed, dictated and finalized at location A. 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 Abdominal aortic aneurysm measuring greater than [address] pelvis [address] A is recommended. 2. Moderate lumbar spondylosis.
== END 2022-12-24 11:18 | disposition home or self-care (01) ==
LOC: CHSIMG 11:19
PROVIDERS: PCP Internal Medicine; Visit Provider Internal Medicine
DX: M54.50 Low back pain, unspecified (principal); I71.40 Abdominal aortic aneurysm, without rupture, unspecified; M43.06 Spondylolysis, lumbar region
CPT/HCPCS: 72100

== ENCOUNTER 2023-04-05 15:21 | Emergency (ER) | payer MEDICARE, SELFPAY ==
[2023-04-05 15:27] VITALS: BP 137/64; PULSE 84; RESP 18; TEMP 36.8; O2SAT 96
--- NOTE | 2023-04-05 15:47 | ED.WOUNDLAC ---
HPI - Wound/Laceration General Chief Complaint: Wound/Laceration Stated Complaint: right finger laceration Time Seen by Provider: 04/05/23 15:34 Source: patient Mode of arrival: ambulatory Limitations: no limitations History of Present Illness HPI narrative: 82 year old male presents to the Emergency Department with laceration wounds to his right 3-5th finger pads. Patient was using a new chain saw and lacerated fingers. Unsure of last tetanus. Onset (ago): minute(s) Extremity Location: Right: hand Place: home Patient tetanus UTD: No Context: accidental Associated symptoms: none Treatments prior to arrival: bandage Related Data Home Medications Medication Instructions Recorded Confirmed carvedilol 12.5 mg tablet 12.5 mg PO BID 05/24/21 02/05/22 finasteride 5 mg tablet 5 mg PO DAILY 05/24/21 02/05/22 lisinopril 20 1 tablet PO DAILY 05/24/21 02/05/22 mg-hydrochlorothiazide 25 mg tablet lovastatin 40 mg tablet 40 mg PO HS 05/24/21 02/05/22 tamsulosin 0.4 mg capsule 0.4 mg PO HS 05/24/21 02/05/22 aspirin 81 mg tablet 81 mg PO DAILY 07/16/21 02/05/22 Allergies Allergy/AdvReac Type Severity Reaction Status Date / Time ciprofloxacin [From Cipro] AdvReac Mild Unknown Verified 02/05/22 14:59 metronidazole AdvReac itching Verified 02/05/22 14:59 Review of Systems Review of Systems: All systems reviewed & are unremarkable except as noted in HPI and below Constitutional: Constitutional: Reports as per HPI Eyes: Eyes: Reports as per HPI ENT: Reports system reviewed and no additional complaints, except as documented Cardiovascular: Cardiovascular: Reports as per HPI Respiratory: Respiratory: Reports as per HPI Gastrointestinal: Gastrointestinal: Reports as per HPI Genitourinary: Genitourinary: Reports no additional male genitourinary complaints Musculoskeletal: Musculoskeletal: Reports no additional musculoskeletal complaints Integumentary/Breasts: Skin/Breast: Reports system reviewed and no additional complaints, except as docu Comments: lacerations to right 3-5th pads Neurologic: Reports system reviewed and no additional complaints, except as documented, Denies focal weakness and Denies numbness PMFSH Past Medical History Medical History Abdominal aortic aneurysm BPH (benign prostatic hyperplasia) Diverticulitis Hyperlipidemia Hypertension Surgical History Surgical History History of carpal tunnel release 2021 No significant past surgical history Family History Family History Father Heart disease Mother Carcinoma of colon Social History Social History Smoking packs per day: 1.5 Smoking cigarettes per day: 30.0 Smoking status: Former smoker Tobacco type: cigarettes Smoking end date: 11/29/79 Alcohol intake: never Substance use: never Substance use type: does not use Living arrangements: with family Occupation/Education: retired Gender identity (if verbalized by the patient): Male Sexual Orientation (if Verbalized by the Patient): Straight or Heterosexual Spiritual care concerns: No Exam Const: General: healthy appearing Nutritional Appearance: well nourished Orientation/consciousness: patient oriented x3 Limitations: no limitations HENMT: Head: normal to inspection Ears: external ears normal Face/Nose/Sinus: Normal external nose present Face and sinus: normal facial exam Eyes: Conjunctivae: conjunctivae normal Pupils: Equal, round and reactive pupils present EOM: EOMs intact bilaterally Direct Ophthalmoscopy: no photophobia Neck: Neck: normal visual inspection Chest: Chest palpation & inspection: normal inspection of the chest Resp: Effort & Inspection: normal respiratory effort Cardio: Rate: regular rate GI: Inspection
[2023-04-05] MEDS: TETANUS/DIPHTHERIA TOXOIDS ADSORB 0.5 ML VIAL (*BKC) IM (15:49)
[2023-04-05 16:15] VITALS: BP 120/63; PULSE 58; RESP 20; TEMP 36.8; O2SAT 95
== END 2023-04-05 16:19 | disposition home or self-care (01) ==
LOC: CHSED 15:59
PROVIDERS: Emergency Provider Emergency Medicine; PCP Internal Medicine
DX: S61.212A Laceration without foreign body of right middle finger without damage to nail, initial encounter (principal); S61.214A Laceration without foreign body of right ring finger without damage to nail, initial encounter; S61.216A Laceration without foreign body of right little finger without damage to nail, initial encounter; E78.5 Hyperlipidemia, unspecified; I10 Essential (primary) hypertension; Z87.891 Personal history of nicotine dependence; Z23 Encounter for immunization; W29.3XXA Contact with powered garden and outdoor hand tools and machinery, initial encounter; Y92.009 Unspecified place in unspecified non-institutional (private) residence as the place of occurrence of the external cause
CPT/HCPCS: 90471; 90714; 99282

== ENCOUNTER 2023-05-03 07:05 | Outpatient (CLI) | payer MEDICARE, SELFPAY ==
[2023-05-03 07:19] LABS: Appearance Urine Clear (Clear); Bilirubin Urine Negative (Negative); Blood Urine 2+ (Negative); Color Urine Yellow (Yellow); Glucose Urine UA Negative (Negative); Ketones Urine Negative (Negative); Leukocyte Esterase Ur Negative (Negative); Nitrate Urine Negative (Negative); Protein Urine Negative (Negative); Specific Grav Ur 1.025 (1.010-1.020); pH Urine 5.5 (5.0-8.0)
[2023-05-03 07:51] LABS: Add Urine Microscopic? YES; Bacteria Urine Rare /hpf; WBC Urine None seen /hpf (0-3)
[2023-05-03 07:52] LABS: Mucus Urine Few /lpf
[2023-05-03 07:58] LABS: Hemoglobin A1C 5.7 % (<5.7)
[2023-05-03 08:29] LABS: Alanine Aminotransferase 23 U/L (16-63); Alkaline Phosphatase 69 U/L (46-116); Anion Gap 3 mmol/L (8-16); Aspartate Amino Transferase 17 U/L (15-37); Bilirubin,Total 0.9 mg/dL (0.00-1.00); Blood Urea Nitrogen 21 mg/dL (7-18); Calcium 8.8 mg/dL (8.5-10.1); Carbon Dioxide 32 mmol/L (21-32); Chloride 100 mmol/L (98-108); Cholesterol 149 mg/dL (0-200); Creatine Kinase 82 U/L (39-308); Estimated Glomerular Filt Rate > 60; Glucose 93 mg/dL (70-99); HDL Direct 45 mg/dL (40-60); LDL Cholesterol Calculated 82 mg/dL (<130); Osmolality Calculated 283 mOsm/kg (285-295); Potassium 3.9 mmol/L (3.5-5.1); Sodium 135 mmol/L (136-145); Total Protein 7.2 g/dL (6.4-8.2); Triglycerides 111 mg/dL (0-150)
== END 2023-05-03 07:06 | disposition home or self-care (01) ==
LOC: CHSLAB 07:07
PROVIDERS: PCP Internal Medicine; Visit Provider Internal Medicine
DX: I10 Essential (primary) hypertension (principal); E78.2 Mixed hyperlipidemia; R73.01 Impaired fasting glucose
CPT/HCPCS: 36415; 80053; 80061; 81001; 82550; 83036

== ENCOUNTER 2023-10-25 16:43 | Outpatient (CLI) | payer MEDICARE, SELFPAY ==
[2023-10-25 16:54] LABS: Basophils Absolute Auto 0.05 K/mm3 (0.00-0.10); Basophils Percent Auto 0.5 % (0.0-1.0); Eosinophils Absolute Auto 0.29 K/mm3 (0.02-0.50); Eosinophils Percent Auto 2.6 % (1.0-6.0); Hematocrit 45.1 % (37.0-46.0); Hemoglobin 14.7 g/dL (12.4-15.3); Immature Granulocyte Absolute 0.03 K/mm3 (0.00-0.00); Immature Granulocyte Percent A 0.3 % (0.0-0.0); Lymphocytes Absolute Auto 3.79 K/mm3 (1.10-4.50); Lymphocytes Percent Auto 34.3 % (18.0-42.0); Mean Corpuscular HGB Conc 32.6 g/dL (32.0-36.0); Mean Corpuscular Hemoglobin 31.7 pg (27.0-31.0); Mean Corpuscular Volume 97.2 fL (78.0-102.0); Mean Platelet Volume 10.4 fl (8.7-11.0); Monocytes Absolute Auto 0.93 K/mm3 (0.10-0.90); Monocytes Percent Auto 8.4 % (2.0-11.0); Neutrophils Percent Auto 53.9 % (50.0-70.0); Platelet Count Result 187 K/mm3 (150-420); Red Blood Count 4.64 M/mm3 (4.70-6.10); Red Cell Distribution Width 13.7 % (11.6-14.4)
[2023-10-25 17:19] LABS: Alanine Aminotransferase 25 U/L (16-63); Albumin Level 3.9 g/dL (3.4-5.0); Alkaline Phosphatase 71 U/L (46-116); Amylase 57 U/L (25-115); Anion Gap 2 mmol/L (8-16); Aspartate Amino Transferase 22 U/L (15-37); Bilirubin,Total 0.8 mg/dL (0.00-1.00); Blood Urea Nitrogen 35 mg/dL (7-18); Calcium 9.3 mg/dL (8.5-10.1); Carbon Dioxide 37 mmol/L (21-32); Chloride 102 mmol/L (98-108); Creatine Kinase 74 U/L (39-308); Estimated Glomerular Filt Rate 60; Glucose 99 mg/dL (70-99); Lipase 57 U/L (16-77); Osmolality Calculated 300 mOsm/kg (285-295); Potassium 4.2 mmol/L (3.5-5.1); Sodium 141 mmol/L (136-145); Total Protein 7.4 g/dL (6.4-8.2); Troponin I 5.7 ng/L (0.00-60.4)
== END 2023-10-25 16:44 | disposition home or self-care (01) ==
LOC: CHSLAB 16:45
PROVIDERS: PCP Internal Medicine; Visit Provider Internal Medicine
DX: R07.9 Chest pain, unspecified (principal); R10.11 Right upper quadrant pain
CPT/HCPCS: 36415; 80053; 82150; 82550; 82553; 83690; 84484; 85025

== ENCOUNTER 2023-11-09 07:02 | Outpatient (CLI) | payer MEDICARE, SELFPAY ==
[2023-11-09 07:15] LABS: Basophils Absolute Auto 0.04 K/mm3 (0.00-0.10); Basophils Percent Auto 0.4 % (0.0-1.0); Eosinophils Absolute Auto 0.35 K/mm3 (0.02-0.50); Eosinophils Percent Auto 3.3 % (1.0-6.0); Hematocrit 41.6 % (37.0-46.0); Hemoglobin 13.7 g/dL (12.4-15.3); Immature Granulocyte Absolute 0.04 K/mm3 (0.00-0.00); Immature Granulocyte Percent A 0.4 % (0.0-0.0); Lymphocytes Absolute Auto 2.85 K/mm3 (1.10-4.50); Lymphocytes Percent Auto 26.8 % (18.0-42.0); Mean Corpuscular HGB Conc 32.9 g/dL (32.0-36.0); Mean Corpuscular Hemoglobin 31.9 pg (27.0-31.0); Mean Corpuscular Volume 96.7 fL (78.0-102.0); Mean Platelet Volume 10.1 fl (8.7-11.0); Monocytes Absolute Auto 0.76 K/mm3 (0.10-0.90); Monocytes Percent Auto 7.1 % (2.0-11.0); Neutrophils Absolute Auto 6.6 K/mm3 (1.7-7.2); Platelet Count Result 180 K/mm3 (150-420); Red Cell Distribution Width 13.5 % (11.6-14.4); White Blood Count 10.6 K/mm3 (4.8-10.8)
[2023-11-09 07:18] LABS: Appearance Urine Clear (Clear); Bilirubin Urine Negative (Negative); Blood Urine 1+ (Negative); Color Urine Yellow (Yellow); Glucose Urine UA Negative (Negative); Ketones Urine Negative (Negative); Leukocyte Esterase Ur Negative (Negative); Nitrate Urine Negative (Negative); Protein Urine Negative (Negative)
[2023-11-09 07:27] LABS: Add Urine Microscopic? YES; Bacteria Urine Rare /hpf; RBC Urine 0-2 /hpf (0-2); WBC Urine None seen /hpf (0-3)
[2023-11-09 07:46] LABS: Hemoglobin A1C 5.6 % (<5.7)
[2023-11-09 07:49] LABS: Alanine Aminotransferase 23 U/L (16-63); Albumin Level 3.6 g/dL (3.4-5.0); Alkaline Phosphatase 61 U/L (46-116); Anion Gap 2 mmol/L (8-16); Aspartate Amino Transferase < 10 U/L (15-37); Bilirubin,Total 0.7 mg/dL (0.00-1.00); Blood Urea Nitrogen 17 mg/dL (7-18); Calcium 8.5 mg/dL (8.5-10.1); Carbon Dioxide 36 mmol/L (21-32); Chloride 102 mmol/L (98-108); Cholesterol 149 mg/dL (0-200); Creatine Kinase 55 U/L (39-308); Estimated Glomerular Filt Rate > 60; Glucose 90 mg/dL (70-99); HDL Direct 42 mg/dL (40-60); LDL Cholesterol Calculated 84 mg/dL (<130); Osmolality Calculated 291 mOsm/kg (285-295); Potassium 4.1 mmol/L (3.5-5.1); Sodium 140 mmol/L (136-145); Total Protein 6.2 g/dL (6.4-8.2); Triglycerides 117 mg/dL (0-150)
== END 2023-11-09 07:03 | disposition home or self-care (01) ==
LOC: CHSLAB 07:04
PROVIDERS: PCP Internal Medicine; Visit Provider Internal Medicine
DX: I10 Essential (primary) hypertension (principal); R73.01 Impaired fasting glucose; E78.2 Mixed hyperlipidemia; J32.9 Chronic sinusitis, unspecified
CPT/HCPCS: 36415; 80053; 80061; 81001; 82550; 83036; 85025

== ENCOUNTER 2024-05-11 07:28 | Outpatient (CLI) | payer MEDICARE, SELFPAY ==
[2024-05-11 08:02] LABS: Basophils Absolute Auto 0.03 K/mm3 (0.00-0.10); Basophils Percent Auto 0.3 % (0.0-1.0); Eosinophils Absolute Auto 0.43 K/mm3 (0.02-0.50); Eosinophils Percent Auto 4.6 % (1.0-6.0); Hematocrit 42.5 % (37.0-46.0); Hemoglobin 13.8 g/dL (12.4-15.3); Immature Granulocyte Absolute 0.02 K/mm3 (0.00-0.00); Immature Granulocyte Percent A 0.2 % (0.0-0.0); Lymphocytes Absolute Auto 2.93 K/mm3 (1.10-4.50); Lymphocytes Percent Auto 31.1 % (18.0-42.0); Mean Corpuscular HGB Conc 32.5 g/dL (32-36); Mean Corpuscular Hemoglobin 31.4 pg (27.0-31.0); Mean Corpuscular Volume 96.6 fL (78.0-102.0); Mean Platelet Volume 10.9 fl (8.7-11.0); Monocytes Absolute Auto 0.57 K/mm3 (0.10-0.90); Monocytes Percent Auto 6.1 % (2.0-11.0); Neutrophils Absolute Auto 5.43 K/mm3 (1.70-7.20); Neutrophils Percent Auto 57.7 % (50.0-70.0); Platelet Count Result 183 K/mm3 (150-420); Red Cell Distribution Width 13.7 % (11.6-14.4); White Blood Count 9.4 K/mm3 (4.8-10.8)
[2024-05-11 08:06] LABS: Appearance Urine Clear (Clear); Bilirubin Urine Negative (Negative); Blood Urine 1+ (Negative); Color Urine Yellow (Yellow); Glucose Urine UA Negative (Negative); Ketones Urine Negative (Negative); Leukocyte Esterase Ur Negative LEU/UL (Negative); Nitrate Urine Negative (Negative); Protein Urine Negative (Negative)
[2024-05-11 08:11] LABS: Hemoglobin A1C 5.8 % (<5.7)
[2024-05-11 08:16] LABS: Add Urine Microscopic? YES; Squamous Epithelial Cell Urine Noted /hpf (Few); WBC Urine 0-3 /hpf (0-3)
[2024-05-11 08:17] LABS: Mucus Urine Heavy /lpf
[2024-05-11 08:27] LABS: Alanine Aminotransferase 21 U/L (16-63); Albumin Level 3.9 g/dL (3.4-5.0); Alkaline Phosphatase 58 U/L (46-116); Anion Gap 9 mmol/L (4-12); Aspartate Amino Transferase 17 U/L (15-37); Blood Urea Nitrogen 22 mg/dL (7-18); Calcium 8.6 mg/dL (8.5-10.1); Carbon Dioxide 31 mmol/L (21-32); Chloride 103 mmol/L (98-108); Cholesterol 157 mg/dL (0-200); Creatine Kinase 64 U/L (39-308); Estimated Glomerular Filt Rate > 60; Glucose 98 mg/dL (70-99); HDL Direct 46 mg/dL (40-60); LDL Cholesterol Calculated 89 mg/dL (<130); Osmolality Calculated 299 mOsm/kg (285-295); Sodium 143 mmol/L (136-145); Total Protein 6.7 g/dL (6.4-8.2); Triglycerides 109 mg/dL (0-150)
== END 2024-05-11 07:29 | disposition home or self-care (01) ==
PROVIDERS: PCP Internal Medicine; Visit Provider Internal Medicine
DX: I10 Essential (primary) hypertension (principal); E78.2 Mixed hyperlipidemia; R73.01 Impaired fasting glucose; N39.0 Urinary tract infection, site not specified
CPT/HCPCS: 36415; 80053; 80061; 81001; 82550; 83036; 85025

== ENCOUNTER 2024-10-30 07:16 | Outpatient (CLI) | payer MEDICARE, SELFPAY ==
[2024-10-30 07:33] LABS: Hemoglobin 13.8 g/dL (12.4-15.3); Mean Corpuscular HGB Conc 33.7 g/dL (32-36); Mean Corpuscular Hemoglobin 31.6 pg (27.0-31.0); Mean Corpuscular Volume 93.8 fL (78.0-102.0); Mean Platelet Volume 10.1 fl (8.7-11.0); Platelet Count Result 175 K/mm3 (150-420); Red Blood Count 4.37 M/mm3 (4.70-6.10); Red Cell Distribution Width 13.7 % (11.6-14.4); White Blood Count 9.8 K/mm3 (4.8-10.8)
[2024-10-30 07:34] LABS: Add Urine Microscopic? NO; Appearance Urine Clear (Clear); Bilirubin Urine Negative (Negative); Blood Urine Trace-intact (Negative); Color Urine Yellow (Yellow); Glucose Urine UA Negative (Negative); Ketones Urine Negative (Negative); Leukocyte Esterase Ur Negative LEU/UL (Negative); Nitrate Urine Negative (Negative); Protein Urine Negative (Negative); Specific Grav Ur 1.015 (1.010-1.020)
[2024-10-30 07:47] LABS: Hemoglobin A1C 5.6 % (<5.7)
[2024-10-30 08:07] LABS: Alanine Aminotransferase 17 U/L (16-63); Albumin Level 3.6 g/dL (3.4-5.0); Alkaline Phosphatase 70 U/L (46-116); Anion Gap 5 mmol/L (4-12); Aspartate Amino Transferase 12 U/L (15-37); Bilirubin,Total 0.9 mg/dL (0.00-1.00); Blood Urea Nitrogen 21 mg/dL (7-18); Calcium 8.6 mg/dL (8.5-10.1); Carbon Dioxide 33 mmol/L (21-32); Chloride 104 mmol/L (98-108); Cholesterol 163 mg/dL (0-200); Creatine Kinase 55 U/L (39-308); Estimated Glomerular Filt Rate > 60; Glucose 92 mg/dL (70-99); HDL Direct 46 mg/dL (40-60); LDL Cholesterol Calculated 92 mg/dL (<130); Osmolality Calculated 297 mOsm/kg (285-295); Sodium 142 mmol/L (136-145); Total Protein 6.4 g/dL (6.4-8.2); Triglycerides 123 mg/dL (0-150)
== END 2024-10-30 07:17 | disposition home or self-care (01) ==
LOC: CHSLAB 07:20
PROVIDERS: PCP Internal Medicine; Visit Provider Internal Medicine
DX: I10 Essential (primary) hypertension (principal); R73.01 Impaired fasting glucose; E78.5 Hyperlipidemia, unspecified
CPT/HCPCS: 36415; 80053; 80061; 81003; 82550; 83036; 85027

== ENCOUNTER 2025-01-15 14:08 | Outpatient (CLI) | payer MEDICARE, SELFPAY ==
--- NOTE | ~2025-01-15 | XR_ITS ---
EXAMINATION: XR shoulder LT min 2V DATE: 01/15/2025 14:37 INDICATION: Left shoulder pain. TECHNIQUE: 4 views of left shoulder were obtained. COMPARISON: None. FINDINGS: Alignment is normal. No fracture. There is mild osteoarthritis of glenohumeral joint and se ava osteoarthritis of acromioclavicular joint. IMPRESSION: 1. Polyarticular osteoarthritis. Reviewed, dictated and finalized at location A. ICATION SUPPORT DEVELOPER
--- NOTE | ~2025-01-15 | XR_ITS ---
EXAM: XR_CERV2-3V_CR DATE: 01/15/2025 14:37 HISTORY: NECK PAIN WITH LT ARM NUMBNESS,NKI . COMPARISON: CT C-spine 10/16/2012. FINDINGS: Craniocervical association and atlantoaxial joint are aligned. Moderate degenerative hunt e at the atlantodental interval. No prevertebral soft tissue swelling. Trace anterolisthesis at C6-7. Ossification in the posterior soft tissues. Vertebral body heights are maintained. Normal disc space s. Multilevel degenerative disc disease, moderate at C6-7. Multilevel moderate facet and uncovertebra l joint hypertrophy IMPRESSION: Trace grade 1 anterolisthesis at C6-7. Multilevel cervical degenerative disc disease, mod erate at C6-7. Multilevel moderate facet arthropathy. Reviewed, dictated and finalized at location K. WASHER IMPRESSION: Trace grade 1 anterolisthesis at C6-7. Multilevel cervical degenera tive disc disease, moderate at C6-7. Multilevel moderate facet arthropathy.
--- OUTSIDE RECORDS SUMMARY | 2025-01-15 16:47 | XMS_ITS | Clinical Summary ---
Author Organization [facility] Address [address] [place] [address] Care Team Providers Care Shanker Out Name Role Phone Alicja Severino MD Primary Care Provider [phone] Chencho Quinteros APRN Unavailable [phone] Wendie Schmidt MD Unavailable Kiel Deluna MD Unavailable [phone] Allergies Active Allergy Reactions Criticality Noted Date Comments Sulfamethoxazole-Trimethoprim Hives 2019 Medications carvedilol 12.5 MG tablet Take 1 tablet (12.5 mg total) by mouth 2 (two) times daily. 05/02/2020 Active tamsulosin 0.4 MG Cap Take 1 capsule (0.4 mg total) by mouth daily. 03/01/2020 Active finasteride 5 MG tablet Take 1 tablet (5 mg total) by mouth daily. 02/28/2020 Active fluticasone propionate 50 MCG/ACT nasal spray 2 sprays by Each Nostril route daily. 05/01/2020 Active lisinopril-hydr oCHLOROthiazide 20-25 MG tablet Take 1 tablet by mouth daily. 02/20/2020 Active lovastatin 40 MG tablet Take 1 tablet (40 mg total) by mouth daily with supper. 04/21/2020 Active aspirin EC 81 MG tablet Take 1 tablet (81 mg total) by mouth daily. 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 Coronary artery disease 08/23/2020 Mitral valve prolapse 08/23/2020 HTN (hypertension) 09/03/2015 Pain of right hip joint 09/03/2015 Chest pain 09/03/2015 Benign prostatic hyperplasia 09/03/2015 Abnormal EKG 09/03/2015 Dyslipidemia AAA (abdominal aortic aneurysm) without rupture Encounters Date Type Department Care Team Description 11/10/2024 8:30 AM RN UNIT MANAGER Office Visit [facility] [address] [place] [address] Wendie Schmidt MD Follow Up 11/10/2024 8:15 AM RN UNIT MANAGER - 11/10/2024 11:59 PM RN UNIT MANAGER Hospital Encounter [facility] [address] [place] [address] Wendie Schmidt MD Discharge Disposition: Home or Self Care (Routine Discharge) 11/10/2024 Travel 11/06/2024 Orders Only [facility] [address] [place] [address] Wendie Schmidt MD from Last 3 Months Family History Medical History Relation Comments Heart Attack Father Cancer Mother Relation Status Comments Father Mother Social History Tobacco Use Types Packs/Day Years Used Date Smoking Tobacco: Former Cigarettes Q uit: 1982 Smokeless Tobacco: Never Tobacco Cessation:Counseling Given: Yes Sex and Gender Information Value Date Recorded Sex Assigned at Not on file Legal Sex Male 1:07 PM CDT Gender Identity Not on file Sexual Orientation Not on file Occupation Industry Job Start Date Job End Date retired Not on file Not on file Not on file Last Filed Vital Signs Vital Sign Reading Time Taken Comments Blood Pressure 137/72 11/10/2024 11:20 AM RN UNIT MANAGER Pulse 53 07/27/2024 8:40 AM CDT Temperature 36.5 C (97.7 F) 06/04/2020 11:49 AM CDT Respiratory Rate 16 11/10/2024 11:20 AM RN UNIT MANAGER Oxygen Saturation 98% 11/10/2024 11:20 AM RN UNIT MANAGER Inhaled Oxygen Concentration - - Weight 110.7 kg (244 lb) 11/10/2024 11:20 AM RN UNIT MANAGER Height 177.8 cm (5' 10 ) 11/10/2024 11:20 AM RN UNIT MANAGER Body Mass Index 35.01 11/10/2024 11:20 AM RN UNIT MANAGER Plan of Treatment Upcoming Encounters Date Type Department Care Team (Late st Contact Info) Description 02/26/2025 9:00 AM CDT Appointment [facility] [place] [address] [place] [address] Chencho Quinteros, LABORER DEMOLITION [address] [facility] [address] [address] 02/26/2025 10:30 AM CDT Office Visit [facility] [address] [place] [address] Chencho Quinteros, LABORER DEMOLITION [address] [facility] [address] [place] [address] 06/11/2025 9:[address] [facility] [place] [address] Wendie Schmidt MD [address] [place] [address] 06/25/2025 12:45 PM CDT Office Visit [facility] [address] [place] [address] Wendie Schmidt MD [address] [place] [address] Health Maintenance Due Date Last Done Comments ASCVD Statin 1940 DTaP, Tdap and Td Vaccines ( 1 - Tdap) 1959 Annual Medicare Wellness Visit 2006 Pneumococcal Vaccine: 65+ Years (2 of 2 - PPSV23 or PCV20) 11/19/2015 09/24/2015 RSV Immunization or 60+ Years (1 - 1-dose 75+ series) 2016 ASCVD LDL 05/01/2021 05/01/2020 COVID-19 Vaccine ( - 2023-2 5 season) 2024 Influenza Adult (#1) 2024 09/01/2013 Zoster Vaccines Completed 07/21/2019, 04/12/2019, 01/08/2014 Meningococcal B Vaccine Aged Out No l onger eligible based on patient's age to complete this topic Meningococcal Vaccine Aged Out No ahsan kristen eligible based on patient's age to complete this topic RSV Immunizations Under 20 Months Aged Out No longer eligible b ased on patient's age to complete this topic Procedures Procedure Name Priority Date/Time Associated Diagnosis Comments ECG 12-LEAD Routine 11/10/2024 8:26 AM RN UNIT MANAGER Coronary artery disease involving [place] coronary artery of [place] heart without angina pectoris LIPID PANEL Routine 05/01/2020 from Last 3 Months or Most Recently Relevant to Health Maintenance Results * ECG 12 lead (HOSPITAL PERFORMED ONLY) (11/10/2024 8:26 AM RN UNIT MANAGER) 11/10/2024 8:26 AM RN UNIT MANAGER Narrative [facility] - 11/10/2024 10:19 PM RN UNIT MANAGER [address] [place] [address] Test Date: 2024-11-10 Pat Name: SUZANNE CLARK Department: 3 Room: Gender: Male Cra: : 1940 Requested By: WENDIE SCHMIDT Order Number: [id number] Reading MD: Wendie Schmidt Measurements Intervals [place] Rate: 52 P: 60 OR: 204 QRS: -25 QRSD: 105 T: 47 QT: 432 QTc: 405 Interpretive Statements SINUS BRADYCARDIA BORDERLINE LEFT AXIS DEVIATION [QRS AXIS < -20] UNIT MANAGER Procedure Note Wendie Schmidt MD - 11/10/[address] [place] [address] Test Date: 2024-11-10 Pat Name: SUZANNE CLARK Department: 3 Room: Gender: Male Cra: : 1940 Requested By: WENDIE SCHMIDT Order Number: [id number] Reading BERTA Schmidt Measurements Intervals [place] Rate: 52 P: 60 OR: 204 QRS: -25 QRSD: 105 T: 47 QT: 432 QTc: 405 Interpretive Statements SINUS BRADYCARDIA BORDERLINE LEFT AXIS DEVIATION [QRS AXIS < -20] UNIT MANAGER us Wendie Schmidt MD ECG ORDERABLES Final Result [facility] * LIPID PANEL (05/01/2020) CHOLESTEROL 142 HDL 42 TRIGLYCERIDES 90 NON HDL CHOLESTEROL 100 CHOL/HDL RATIO 3.4 LDL (CALCULATED) 82 05/01/2020 us Doc [facility] Final Result from Last 3 Months or Most Recently Relevant to Health Maintenance Insurance [employer] Advance Directives * Full Code (Latest Code Status on File) Date Activated Date Inactivated Comments 06/04/2020 3:32 PM 06/04/2020 8:14 PM Care Teams Shanker Out Relationship Specialty Start Date End Date Alicja Severino MD [address] [place] [address] PCP - General INTERNAL MEDICINE 05/07/20 Chencho Quinteros APRN [address] [facility] [address] [id number] Nurse Practitioner NURSE PRACTITIONER 07/21/22 Wendie Schmidt MD [address] [place] [address] Consulting Physician CARDIOVASCULAR DISEASE 03/16/24 Kiel Deluna MD [address] [place] [address] Consulting Physician INTERVENTIONAL CARDIOLOGY 07/27/24
--- OUTSIDE RECORDS SUMMARY | 2025-01-15 16:47 | XMS_ITS | Clinical Summary ---
Author Organization [facility] Address [address] [place] [address] Care Team Providers Care Porter Used Car Lot Name Role Phone Alicja Severino MD Primary Care Provider [phone] Allergies No known active allergies Medications tamsulosin (FLOMAX) 0.4 mg extended release capsule Active carvedilol (COREG) 3.125 mg tablet Acti ve aspirin 81 mg tablet Active finasteride (PROSCAR) 5 mg tablet Active lisinopril-hydroCH LOROthiazide (PRINZIDE,ZESTORET IC) 20-25 mg per tablet Active lovastatin (MEVACOR) 40 mg tablet Active peg 400-propylene glycol (SYSTANE, PROPYLENE GLYCOL,) 0.4-0.3 % ophthalmic solution Active Active Problems No known active problems Medical History Medical History Date Comments Hypercholesterolemia High choles terol; Comments: DNM 10/29/2015 - Hypertension Hypertension Family History Medical History Relation Name Comments Cancer Father Family history of malignant neoplasm - (Added by TW Conv) Heart attack Father Family history of myocardial infarction - (Added by TW Conv) Cancer Mother Family history of malignant neoplasm - (Added by TW Conv) Cancer Other Cancer, unknown ; Heart failure Other Congestive hea rt failure; Relation Name Status Comments Father Mother Other Social History Tobacco Use Types Packs/Day Years Used Date Smoking Tobacco: Former Cigarettes 20 1 Smokeless Tobacco: Never Alcohol Use Standard Drinks/Week Comments Yes 0 (1 standard drink = 0.6 oz pur e alcohol) AUDIT-C Answer Date Recorded Frequency of Alcohol Consumption 2-3 times a wee k 02/06/2019 Average Number of Drinks Not on file 019 Frequency of Binge Drinking Not on file 01/27 Sex and Gender Information Value Date Recorded Sex Assigned at Not on file Legal Sex Male 12:18 AM SUGAR 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 Gender Identity Not on file Sexual Orientation Not on file Obstetrics History Last Filed Vital Signs Vital Sign Reading Time Taken Comments Blood Pressure 166/89 02/06/2019 9:06 AM CDT Pulse 62 02/06/2019 9:06 AM CDT Temperature - - Respiratory Rate - - Oxygen Saturation 98% 02/06/2019 9:06 AM CDT Inhaled Oxygen Concentration - - Weight 105.2 kg (232 lb) 10/29/2021 8:05 AM SUGAR CANE 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 Height 177.8 cm (5' 10 ) 02/06/2019 9:06 AM CDT Body Mass Index 33.29 02/06/2019 9:06 AM CDT Plan of Treatment Not on file Insurance MEDICARE [employer]IONS MED[employer]IONS Care Teams Porter [employer] Car Lot Relationship Specialty Start Date End Date Alicja Severino MD [address] [place] [address] PCP - General 02/22/17
--- OUTSIDE RECORDS SUMMARY | 2025-01-15 16:47 | XMS_ITS | Referral Summary ---
Author Organization [facility] Address [address] [place] [address] Care Team Providers Care Manufacturing Accountant Name Role Phone Alicja Severino MD Primary Care Provider [phone] Allergies No known active allergies Medications tamsulosin [...] Active Active Problems No known active problems Social History Tobacco Use Types Packs/Day Years [...] on file Legal Sex Male 12:18 AM PRODUCTION PACKAGER Gender Identity Not on file Sexual Orientation Not on file Last Filed Vital Signs Vital Sign Reading Time Taken Comments Blood Pressure 166/89 02/06/2019 9:06 AM CDT Pulse 62 02/06/2019 9:06 AM CDT Temperature - - Respiratory Rate - - Oxygen Saturation 98% 02/06/2019 9:06 AM CDT Inhaled Oxygen Concentration - - Weight 105.2 kg (232 lb) 10/29/2021 8:05 AM PRODUCTION PACKAGER Height 177.8 cm (5' 10 ) 02/06/2019 9:06 AM CDT Body Mass Index 33.29 02/06/2019 9:06 AM CDT Plan of Treatment Not on file Insurance [facility]ICARE [facility] Address: [address] [address] [facility] Address: [address] [address] [place] [address] Care Teams Manufacturing Accountant Relationship Specialty Start Date End Date Alicja Severino MD [address] [place] [address] PCP - General 02/22/17
== END 2025-01-15 14:09 | disposition home or self-care (01) ==
LOC: CHSIMG 14:10
PROVIDERS: PCP Internal Medicine; Visit Provider Internal Medicine
DX: M25.512 Pain in left shoulder (principal); M19.012 Primary osteoarthritis, left shoulder; M43.12 Spondylolisthesis, cervical region; M50.323 Other cervical disc degeneration at C6-C7 level
CPT/HCPCS: 72040; 73030

== ENCOUNTER 2025-03-10 13:28 | Emergency (ER) | payer MEDICARE, SELFPAY ==
[2025-03-10 13:28] VITALS: BP 165/78; PULSE 54; RESP 16; TEMP 36.6; O2SAT 95
--- OUTSIDE RECORDS SUMMARY | 2025-03-10 13:30 | XMS_ITS | Clinical Summary ---
Author Organization [facility] Address [address] [place] [address] Care Team Providers Care Soda Clerk Name Role Phone Alicja Severino MD Primary Care Provider [phone] Allergies No known active allergies Medications tamsulosin [...] on file Legal Sex Male 12:18 AM BODY WELDER Gender Identity Not on file Sexual Orientation Not on file Obstetrics History Last Filed Vital Signs Vital Sign Reading Time Taken Comments Blood Pressure 166/89 02/06/2019 9:06 AM CDT Pulse 62 02/06/2019 9:06 AM CDT Temperature - - Respiratory Rate - - Oxygen Saturation 98% 02/06/2019 9:06 AM CDT Inhaled Oxygen Concentration - - Weight 105.2 kg (232 lb) 10/29/2021 8:05 AM BODY WELDER Height 177.8 cm (5' 10 ) 02/06/2019 9:06 AM CDT Body Mass Index 33.29 02/06/2019 9:06 AM CDT Plan of Treatment Not on file Insurance MEDICARE ADVANTAGE [facility] MEDICARE ADVANTAGE Care Teams Soda Clerk Relationship Specialty Start Date End Date Alicja Severino MD [address] [place], [place] [id number] PCP - General 02/22/17
--- OUTSIDE RECORDS SUMMARY | 2025-03-10 13:30 | XMS_ITS | CONTINUITY OF CARE DOCUMENT ---
Author Name tamika, candiser Address Unknown Organization [facility] Address [address] [place] [address] [place] [address] Phone [phone] Care Team Providers Care Construction Sales Representative Name Role Phone Juan Rivera MD Unavailable ELEUTERIO DALE MD Unavailable ELEUTERIO DALE MD Unavailable PROBLEMS Condition Status Date Provider Notes HTN active Juan Rivera MD Hypercholesterolemia active Juan Rivera MD Abnormal EKG active Juan Rivera MD BPH active Juan Rivera MD Chest pain-type to be determined active Josephine Rivera MD AAA active Juan Rivera MD Hip joint pain, right active Juan Rivera MD ENCOUNTERS Date Type Provider Location Encounter Diag nosis 6 - 9 In-person encounter Office Visit Juan Rivera MD [facility] HTNHypercholesterolemiaAbnormal EKGBPHChest pain-type to be determinedAAAHip joint pain, right VITAL SIGNS Date Observation Value Provider blood pressure, diastolic, left arm 76 mm [Hg] Juan Rivera MD blood pressure, systolic, left arm 130 mm [Hg] Juan Rivera MD blood pressure, diastolic, right arm 70 m m[Hg] Juan Rivera MD blood pressure, systolic, right arm 126 m m[Hg] Juan Rivera MD blood pressure, diastolic 70 mm[Hg] Michele Rivera MD blood pressure, systolic 126 mm[Hg] Josephine Rivera MD pulse rate 90 /min Juan Rivera MD oxygen saturation, oximetry 95 % Juan Rivera MD respiratory rate E&M 16 /min Carmelo Rivera MD Body Mass Index (Ratio) 34.43 kg/m2 Latha Rivera MD weight E&M 240 [lb_av] Juan Rivera MD height E&M 70 [in_i] Juan Rivera MD ALLERGIES No Known Drug Allergies HISTORY OF MEDICATION USE No Known Medication SOCIAL HISTORY Date Observation Value Provider social history reviewed E&M revi ewed - no changes required Juan Rivera MD INSURANCE PROVIDERS Payer name Policy type / Coverage type [employer] party ID [facility] [id number] Other [id number] [place] MED[place] Medicare [id number] TREATMENT PLAN Date Name Performer Cardiology Faxed 11/12 0818:ON medications .Symptoms improved. Juan Rivera MD Cardiology Faxed 09/09/15 0818:O n statins. Juan Rivera MD Cardiology Faxed 11/12 0818:Blood pressure control satisfactory. Continue on Lisinopril HCTZ. Juan Rivera MD Cardiology Faxed 11/12 0818:Substernal chest pain in 75 yo pt with risk factors for CAD. Merits further cardiac workup and this katie l include a stress test myoview and echocardiogram. At present he is asymptomtic. He continuse on aspirin 81 mg a day; Juan Rivera MD Cardiology Faxed 11/12 0818:Infrarenal. As per pt is approximately 4 cm and hsas remained unchanged in the last 4 years and follows vascular surgery at [facility]. Juan Rivera MD Cardiology Faxed 11/12 0818:/=Has had an MRI and we are awating the results. Juan Rivera MD Date Name STR - Adenosine HISTORY OF PROCEDURES Procedure Date Procedure Name Provider Procedure Notes S tatus Stress EKG Juan Rivera MD complet ed Regadenoson, 4 units Juan Rivera MD completed Cardiolite, 2 units Juan Rivera MD completed SPECT Images Juan Rivera MD compl eted SNOMED-CT: 101925777 [id number] Current Medications Documented Juan Rivera MD completed SNOMED-CT: 434864655 Smoking Cessation Counseling Juan Rivera MD completed SNOMED-CT: 59604610 Physical Exam, Performed: Pulse Exam of Foot Juan Rivera MD completed
--- OUTSIDE RECORDS SUMMARY | 2025-03-10 13:30 | XMS_ITS | Referral Summary ---
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 Gender Identity Not on file Sexual Orientation Not on file Last Filed Vital Signs Vital Sign Reading Time Taken Comments Blood Pressure 166/89 02/06/2019 9:06 AM CDT Pulse 62 02/06/2019 9:06 AM CDT Temperature - - Respiratory Rate - - Oxygen Saturation 98% 02/06/2019 9:06 AM CDT Inhaled Oxygen Concentration - - Weight 105.2 kg (232 lb) 10/29/2021 8:05 AM CONTACT LENS INSPECTOR Height 177.8 cm (5' 10 ) 02/06/2019 9:06 AM CDT Body Mass Index 33.29 02/06/2019 9:06 AM CDT Plan of Treatment Not on file Insurance Care Teams Citrus Fruit Colorer Relationship Specialty Start Date End Date Alicja Severino MD [address] [place] [address] PCP - General 02/22/17
--- OUTSIDE RECORDS SUMMARY | 2025-03-10 13:30 | XMS_ITS | Clinical Summary ---
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 Coronary artery disease 08/23/2020 Mitral valve prolapse 08/23/2020 HTN (hypertension) 09/03/2015 Pain of right hip joint 09/03/2015 Chest pain 09/03/2015 Benign prostatic hyperplasia 09/03/2015 Abnormal EKG 09/03/2015 Dyslipidemia AAA (abdominal aortic aneurysm) without rupture Encounters Date Type Department Care Team Description 02/02/2025 Telephone [facility] [address] [place] [address] Chencho Quinteros APRN Other 01/25/2025 Telephone [facility] [address] [place] [address] Miriam Peña MD Reschedule from Last 3 Months Family History Medical [...] Comments Blood Pressure 137/72 11/10/2024 11:20 AM NARCOTICS AGENT Pulse 53 07/27/2024 8:40 AM CDT Temperature 36.5 C (97.7 F) 06/04/2020 11:49 AM CDT Respiratory Rate 16 11/10/2024 11:20 AM NARCOTICS AGENT Oxygen Saturation 98% 11/10/2024 11:20 AM NARCOTICS AGENT Inhaled Oxygen Concentration - - Weight 110.7 kg (244 lb) 11/10/2024 11:20 AM NARCOTICS AGENT Height 177.8 cm (5' 10 ) 11/10/2024 11:20 AM NARCOTICS AGENT Body Mass Index 35.01 11/10/2024 11:20 AM NARCOTICS AGENT Plan of Treatment Upcoming Encounters Date Type Department Care Team (Late st Contact Info) Description 03/21/2025 10:00 AM CDT Appointment [facility] Vascular Ultrasound - [facility] [address] [place] [address] Chencho Quinteros, TELEPHONE ORDER CLERK ROOM SERVICE [address] [place] [phone] 03/21/2025 11:00 AM CDT Office Visit [facility]ira [address] [place] [address] Chencho Quinteros, TELEPHONE ORDER CLERK ROOM SERVICE [address] [place] [phone] Criss Amezcua, [facility]- [address] [place] [phone] 06/11/2025 9:30 AM CDT [facility] [address] [place] [address] Wendie Bautista MD [address] [place], [place] [phone] 06/25/2025 12:45 PM CDT Office Visit [facility] [place] [address] [place] [phone] Wendie Bautista MD [address] [place], [place] [phone] Health Maintenance Due Date Last Done Comments ASCVD Statin 1941 DTaP, Tdap and Td Vaccines ( 1 - Tdap) 1960 Annual Medicare Wellness Visit 2006 Pneumococcal Vaccine: 65+ Years (2 of 2 - PPSV23 or PCV20) 11/19/2015 09/24/2015 RSV Immunization or 60+ Years (1 - 1-dose 75+ series) 2016 ASCVD LDL 05/01/2021 05/01/2020 COVID-19 Vaccine ( - 2023-2 5 season) 2024 Zoster Vaccines Completed 07/21/2019, 04/12/2019, 01/08/2014 Meningococcal [...] Procedure Name Priority Date/Time Associated Diagnosis Comments LIPID PANEL Routine 05/01/2020 from Last 3 Months or Most Recently Relevant to Health Maintenance Results * LIPID PANEL (05/01/2020) CHOLESTEROL 142 HDL 42 TRIGLYCERIDES 90 NON HDL CHOLESTEROL 100 CHOL/HDL RATIO 3.4 LDL (CALCULATED) 82 05/01/2020 us Doc [facility] Final Result from Last 3 Months or Most Recently Relevant to Health Maintenance Insurance [facility] Advance Directives * Full Code (Latest Code Status on File) Date Activated Date Inactivated Comments 06/04/2020 3:32 PM 06/04/2020 8:14 PM Care Teams Pyrotechnician Relationship Specialty Start Date End Date Alicja Severino MD [address] [place] [address] PCP - General INTERNAL MEDICINE 05/07/20 Chencho Quinteros APRN [address] [place] [phone] Nurse Practitioner NURSE PRACTITIONER 07/21/22 Wendie Bautista MD [address] [place] [address] Consulting Physician CARDIOVASCULAR DISEASE 03/16/24 Criss Amezcua, LOADER MACHINE- [address] [place] [phone] NURSE PRACTITIONER 01/25/25 Miriam Peña MD [address] [place] [address] Consulting Physician CARDIOVASCULAR DISEASE 01/29/25
--- NOTE | 2025-03-10 13:51 | ED_ITS ---
HPI - Dizziness General Chief Complaint: Dizziness Stated Complaint: dizzy Time Seen by Provider: 03/10/25 13:41 Source: patient Mode of arrival: ambulatory Limitations: no limitations History of Present Illness HPI Narrative: 84-year-old white male history of vertigo about 30 years ago was treated with a pill this morning he woke up in bed rolled over on his back and started having spinning sensation. Happened again when he reached up to get a cup of coffee above his head it is worse when he moves around and changes position associated with nausea he vomited once. Denies any ringing in his ears he has hearing aids his hearing has not changed any is walking talking seeing and hearing okay without any changes except it is a little harder to walk with the room spinning. Denies any numbness or weakness paresthesias he has had a little bit of a cough he has had some postnasal drip he has been using Flonase. He is just getting over poison jacqui and has been on prednisone for the last 4 days. Denies any sore throat. He is voiding and stooling fine. Is able to keep down fluids. His rash is Pretty much gone from his arms. Denies any other complaints. Related Data Home Medications ?Medication ?Instructions ?Recorded ?Confirmed ?Last Taken ?Type carvedilol 12.5 mg tablet 12.5 mg PO BID 05/24/21 02/05/22 02/19/22 09:00 History finasteride 5 mg tablet 5 mg PO DAILY 05/24/21 02/05/22 02/19/22 09:00 History lisinopril 20 1 tablet PO DAILY 05/24/21 02/05/22 02/19/22 09:00 History mg-hydrochlorothiazide 25 mg tablet lovastatin 40 mg tablet 40 mg PO HS 05/24/21 02/05/22 02/19/22 09:00 History tamsulosin 0.4 mg capsule 0.4 mg PO HS 05/24/21 02/05/22 Unknown History aspirin 81 mg tablet 81 mg PO DAILY 07/16/21 02/05/22 02/19/22 09:00 History Allergies Allergy/AdvReac Type Severity Reaction Status Date / Time ciprofloxacin (From Cipro) AdvReac Mild Unknown Verified 03/10/25 13:40 metronidazole AdvReac itching Verified 03/10/25 13:40 Review of Systems Review of Systems: All systems reviewed & are unremarkable except as noted in HPI and below PMFSH Past Medical History Medical History Hypertension Hyperlipidemia BPH (benign prostatic hyperplasia) Abdominal aortic aneurysm Diverticulitis Surgical History Surgical History History of carpal tunnel release 2021 No significant past surgical history Family History Family History Father Heart disease Mother Carcinoma of colon Social History Social History Smoking packs per day: 1.5 Smoking cigarettes per day: 30.0 Smoking status: Former smoker Tobacco type: cigarettes Smoking end date: 11/29/79 Alcohol intake: never Substance use: never Substance use type: does not use Living arrangements: with family Occupation/Education: retired Gender identity (if verbalized by the patient): Male Sexual Orientation (if Verbalized by the Patient): Straight or Heterosexual Spiritual care concerns: No Comments History vertigo 30 years ago treated with a pill. Remember the diagnosis. Exam Narrative: ?White male patient with no apparent distress.? Head normocephalic, atraumatic.? Eyes conjunctiva pink sclera nonicteric.? Lateral nystagmus. Extraocular movements are intact.? Ears externally normal.? TMs are normal. Positive Hallpike maneuver. Oropharynx is clear with moist mucous membranes without exudates.? nose swollen nasal turbinates. Maxillary sinuses with mild tenderness. Neck is supple nontender no lymphadenopathy.? Back is nontender.? Lungs are clear.? Heart is regular rate and rhythm without murmurs gallops or rubs.? Chest wall nontender. Abdomen is soft and nontender no hepatosplenomegaly or masses no CVA tenderness no abdominal bruits.? Extremities no cyanosis clubbing or edema.? Skin is warm and dry without rashes or lesions.? Neurological patient is alert and oriented x4.? Motor and sensory grossly intact.? Gait is normal. Dldnof-ewna-ltnxld and heel to hernandez exam was normal. Course Vital Signs Vital signs: Vital Signs Temperature 36.6 C 03/10/25 13:28 Pulse Rate 54 L 03/10/25 13:28 Respiratory Rate 16 03/10/25 13:28 Blood Pressure 165/78 H 03/10/25 13:28 Pulse Oximetry 95 03/10/25 13:28 Oxygen Delivery Room Air 03/10/25 13:28 Temperature 36.6 C 03/10/25 13:28 Pulse Rate 54 L 03/10/25 13:28 Respiratory Rate 16 03/10/25 13:28 Blood Pressure 165/78 H 03/10/25 13:28 Pulse Oximetry 95 03/10/25 13:28 Oxygen Delivery Room Air 03/10/25 13:28 MDM - Dizziness MDM Narrative Medical decision making narrative: Patient was placed in Room # One with his daughter Milagros History and physical was performed. patient was taken through the Hallpike maneuver which is positive. And then Jorge maneuver was performed. He got just a little bit of improvement but not much. Independent Historian: his daughter Milagros External Source Review: Differential Dx includes but not limited to: Stroke benign positional vertigo Medications were Reviewed: home meds reviewed Independently Interpreted by me: Meds, treatment, ED course: amoxicillin 500 mg, Antivert 25 mg Zofran 4 mg p.o. Social Situation Impacting Patients Care: patient is with his daughter which is very helpful Shared decision Making: evaluation was discussed all questions were asked and answered patient agreed with the plan. He will take Antivert 25 mg 3 times a day do the Jorge maneuver 3 times a day. He may wait on doing the Jorge maneuver until he starts feeling little bit better. Would follow up with his primary care provider this week. He would return if he got worse or develops any new symptoms. DISCHARGE DIAGNOSIS: Benign positional vertigo, sinusitis DISPOSITION: discharge home CONDITION AT DISCHARGE: stable Discharge Plan Discharge Clinical Impression: Acute bacterial sinusitis Benign paroxysmal positional vertigo Qualifiers: Laterality: unspecified laterality Qualified Code(s): H81.10 - Benign paroxysmal vertigo, unspecified ear Patient Disposition: Home Condition: Stable Instructions: Antibiotic Form, Rhinosinusitis (ED), Benign Paroxysmal Positional Vertigo (ED) Additional Instructions: take Antivert 25 mg 3 times a day. Follow up with her primary care provider this week for further evaluation. Zofran 4 mg oral dissolvable tablet under the tongue every 4 hours as needed for nausea vomiting as discussed. Amoxicillin 500 mg 3 times a day for 7 days. Finish your prednisone and continue your Flonase. Return if you get worse or develops any new symptoms. No driving until this problem is resolved. Patient Language: Luxembourgish Prescriptions: New ondansetron HCl 4 mg tablet 4 mg PO Q4H PRN (Reason: nausea and vomiting) Qty: 40 0RF Rx Instructions: give 1st dose 30min before emetogenic chemo amoxicillin 500 mg capsule 500 mg PO TID 7 Days Qty: 21 0RF meclizine 25 mg tablet 25 mg PO TID Qty: 40 0RF No Action carvedilol 12.5 mg tablet 12.5 mg PO BID lovastatin 40 mg tablet 40 mg PO HS tamsulosin 0.4 mg capsule 0.4 mg PO HS lisinopril-hydrochlorothiazide 20-25 mg tablet 1 tablet PO DAILY finasteride 5 mg tablet 5 mg PO DAILY Adult Aspirin 81 mg Tablet 81 mg PO DAILY Follow-up/Referrals: Alicja Severino MD [Primary Care Provider] - Time of Disposition: 14:40
[2025-03-10 14:00] VITALS: BP 163/74; PULSE 52; RESP 17; O2SAT 95
--- NOTE | 2025-03-10 14:06 | PC.NURSE ---
ERP at bedside for initial assessment
[2025-03-10 14:30] VITALS: BP 145/68; PULSE 52; RESP 17; O2SAT 95
[2025-03-10] MEDS: AMOXICILLIN 500 MG CAPSULE PO (14:30)
--- OUTSIDE RECORDS SUMMARY | 2025-03-10 14:30 | XMS_ITS | Clinical Summary ---
Author Organization [facility] Address [address] [place] [address] Care Team Providers Care Circular Saw Filer Name Role Phone Alicja Severino MD Primary Care Provider [phone] Allergies No known active allergies Medications tamsulosin [...] on file Legal Sex Male 12:18 AM STAFF SONOGRAPHER Gender Identity Not on file Sexual Orientation Not on file Obstetrics History Last Filed Vital Signs Vital Sign Reading Time Taken Comments Blood Pressure 166/89 02/06/2019 9:06 AM CDT Pulse 62 02/06/2019 9:06 AM CDT Temperature - - Respiratory Rate - - Oxygen Saturation 98% 02/06/2019 9:06 AM CDT Inhaled Oxygen Concentration - - Weight 105.2 kg (232 lb) 10/29/2021 8:05 AM STAFF SONOGRAPHER Height 177.8 cm (5' 10 ) 02/06/2019 9:06 AM CDT Body Mass Index 33.29 02/06/2019 9:06 AM CDT Plan of Treatment Not on file Insurance MEDICARE ADVANTAGE [facility] MEDICARE ADVANTAGE Care Teams Circular Saw Filer Relationship Specialty Start Date End Date Alicja Severino MD [address] [place], [place] [id number] PCP - General 02/22/17
--- OUTSIDE RECORDS SUMMARY | 2025-03-10 14:30 | XMS_ITS | CONTINUITY OF CARE DOCUMENT ---
Author Name tamika, candiser Address Unknown Organization [facility] Address [address] [place] [address] Phone [phone] Care Team Providers Care Watchmaker Apprentice Name Role Phone Juan Rivera MD Unavailable ELEUTERIO DALE MD Unavailable [phone] ELEUTERIO DALE MD Unavailable PROBLEMS Condition Status [...] In-person encounter Office Visit Juan Rivera MD [facility] HTNHypercholesterolemiaAbnormal EKGBPHChest pain-type to be determinedAAAHip [...] Payer name Policy type / Coverage type [place] red republican ID [facility] [id number] Other [id number] [place] MED[place] Medicare [id number] TREATMENT PLAN Date Name Performer Cardiology Faxed [...] 4 years and follows vascular surgery at [facility]. Juan Rivera MD Cardiology Faxed 11/12 0818:/=Has [...] Images Juan Rivera MD compl eted SNOMED-CT: [id number] Current Medications Documented Juan Rivera MD completed SNOMED-CT: 601124403 Smoking Cessation Counseling Juan Rivera MD completed SNOMED-CT: 17455606 Physical Exam, Performed: Pulse Exam of Foot Juan Rivera MD completed
--- OUTSIDE RECORDS SUMMARY | 2025-03-10 14:30 | XMS_ITS | Referral Summary ---
Author Organization [facility] Address [address] [place] [address] Care Team Providers Care Hat Measurer Name Role Phone Alicja Severino MD Primary Care Provider [phone] Allergies No known active allergies Medications tamsulosin [...] on file Legal Sex Male 12:18 AM BOLT MAN Gender Identity Not on file Sexual Orientation Not on file Last Filed Vital Signs Vital Sign Reading Time Taken Comments Blood Pressure 166/89 02/06/2019 9:06 AM CDT Pulse 62 02/06/2019 9:06 AM CDT Temperature - - Respiratory Rate - - Oxygen Saturation 98% 02/06/2019 9:06 AM CDT Inhaled Oxygen Concentration - - Weight 105.2 kg (232 lb) 10/29/2021 8:05 AM BOLT MAN Height 177.8 cm (5' 10 ) 02/06/2019 9:06 AM CDT Body Mass Index 33.29 02/06/2019 9:06 AM CDT Plan of Treatment Not on file Insurance [facility] Address: [address] [address] [place] [address] [facility] Address: [address] [address] [place] [address] Care Teams Hat Measurer Relationship Specialty Start Date End Date Alicja Severino MD [address] [place] [address] PCP - General 02/22/17
--- OUTSIDE RECORDS SUMMARY | 2025-03-10 14:30 | XMS_ITS | Clinical Summary ---
Author Organization [facility] Address [address] [place] [address] Care Team Providers Care Student Ministry Pastor Name Role Phone Alicja Severino MD Primary Care Provider [phone] Chencho Quinteros TEA BAG PACKER Unavailable [phone] Wendie Bautista MD Unavailable Criss Amezcua SOCK LINING STITCHER- Unavailable Miriam Peña MD Unavailable Allergies Active [...] Type Department Care Team Description 02/02/2025 Telephone [facility] [address] [place] [address] Chencho Quinteros APRN Other 01/25/2025 Telephone [facility] [address] [place] [address] Miriam Peña MD Reschedule from [...] Comments Blood Pressure 137/72 11/10/2024 11:20 AM NAPPER RUNNER Pulse 53 07/27/2024 8:40 AM CDT Temperature 36.5 C (97.7 F) 06/04/2020 11:49 AM CDT Respiratory Rate 16 11/10/2024 11:20 AM NAPPER RUNNER Oxygen Saturation 98% 11/10/2024 11:20 AM NAPPER RUNNER Inhaled Oxygen Concentration - - Weight 110.7 kg (244 lb) 11/10/2024 11:20 AM NAPPER RUNNER Height 177.8 cm (5' 10 ) 11/10/2024 11:20 AM NAPPER RUNNER Body Mass Index 35.01 11/10/2024 11:20 AM NAPPER RUNNER Plan of Treatment Upcoming Encounters Date Type Department Care Team (Late st Contact Info) Description 03/21/2025 10:00 AM CDT Appointment [facility] Vascular Ultrasound - [facility] [address] [place] [address] Chencho Quinteros, TEA BAG PACKER [address] [place] [phone] 03/21/2025 11:00 AM CDT Office Visit [facility] [address] [place] [address] Chencho Quinteros, TEA BAG PACKER [address] [place] [phone] Criss Amezcua, [facility]- [address] [place] [phone] 06/11/2025 9:30 AM CD[facility] [address] [place] [address] Wendie Bautista MD [address] [place], [place] [phone] 06/25/2025 12:45 PM CDT Office Visit [facility] [place] [address] [place] [phone] Wendie Bautista MD [address] [place], [place] [phone] Health Maintenance Due Date Last Done Comments [...] Most Recently Relevant to Health Maintenance Insurance [facility] Advance Directives * Full Code (Latest Code Status on File) Date Activated Date Inactivated Comments 06/04/2020 3:32 PM 06/04/2020 8:14 PM Care Teams Student Ministry Pastor Relationship Specialty Start Date End Date Alicja Severino MD [address] [place] [address] PCP - General INTERNAL MEDICINE 05/07/20 Chencho Quinteros APRN [address] [place] [phone] Nurse Practitioner NURSE PRACTITIONER 07/21/22 Wendie Bautista MD [address] [place] [address] Consulting Physician CARDIOVASCULAR DISEASE 03/16/24 Criss Amezcua, SOCK LINING STITCHER- [address] [place] [phone] NURSE PRACTITIONER 01/25/25 Miriam Peña MD [address] [place] [address] Consulting Physician CARDIOVASCULAR DISEASE 01/29/25
[2025-03-10] MEDS: MECLIZINE HCL 25 MG TABLET PO (14:31)
[2025-03-10] MEDS: ONDANSETRON HCL ODT 4 MG TABLET PO (14:31)
[2025-03-10 15:00] VITALS: BP 129/62; PULSE 52; RESP 16; O2SAT 95
--- NOTE | 2025-03-10 15:00 | PC.NURSE ---
Patient reports dizziness has improve some and nausea is gone.
[2025-03-10 15:05] VITALS: BP 129/62; PULSE 52; RESP 16; TEMP 36.8; O2SAT 95
--- NOTE | 2025-03-10 15:08 | PC.NURSE ---
Patient's pharmacy is closed, RN spoke with Prerna Gonzalez at [facility] in [place], called prescriptions over. Rn left message at [facility] in [place] to cancel RX's e-scribed over.
== END 2025-03-10 15:05 | disposition home or self-care (01) ==
PROVIDERS: Emergency Provider Emergency Medicine; PCP Internal Medicine
DX: J01.90 Acute sinusitis, unspecified (principal); B96.89 Other specified bacterial agents as the cause of diseases classified elsewhere; H81.10 Benign paroxysmal vertigo, unspecified ear; E78.5 Hyperlipidemia, unspecified; I10 Essential (primary) hypertension; Z87.891 Personal history of nicotine dependence
CPT/HCPCS: 99283; A9270

== ENCOUNTER 2025-04-13 08:54 | Outpatient (CLI) | payer MEDICARE, SELFPAY ==
--- NOTE | ~2025-04-13 | CT_ITS ---
CLINICAL INDICATION: 10-year history of abdominal aortic aneurysm. COMPARISON: 05/24/2021 and dating back to 12/26/2013. TECHNIQUE: Computed tomography angiography (CTA) of the abdominal aorta with runoff was performed wit h 100 mL Omnipaque-350 intravenous contrast timed to evaluate the abdominal aorta, mesenteric and per ipheral lower extremity vasculature. Coronal maximum intensity projection 3D-reconstructions were created by the technologist. The dose-length product (DLP) was 1738.13 mGy-cm. Automated exposure control and iterative reconstruction technique were employed. FINDINGS/OBSERVATIONS: Visualized lower thorax: Bibasilar atelectasis with panlobular emphysematous disease. The heart is enlarged without pericardial effusion. Liver: The liver enhances homogeneously and is not enlarged. Gallbladder and biliary system: The gallbladder is only minimally distended, without calcified stones. Pancreas: The pancreas enhances homogeneously without ductal dilatation. Spleen: The spleen enhances homogeneously without enlargement. Kidneys: The bilateral kidneys enhance symmetrically without hydronephrosis or obstructing renal calculi. Adrenal glands: Unremarkable. Gastrointestinal tract: Fecal stasis within the colon. Colonic diverticulosis without surrounding inflammatory change. Appendix: The air-filled appendix is of normal caliber (axial series, images 98 through 112). Vasculature: Just below the origin of the inferior mesenteric artery, there is aneurysmal dilatation of the abdomi nal aorta with mural thrombus, measuring 4.8 x 5.4 x 5.7 cm (anterior to posterior x medial to latera l x cranial to caudal dimension). This has increased from 4.7 x 4.9 x 5.7 cm (anterior to posterior x medial to lateral x cranial to caudal dimension) on the previous study performed approximately 4 yea rs earlier. The celiac origin is patent and demonstrates conventional anatomy. The superior mesenteric artery is also patent, with only mild atherosclerosis. The inferior mesenteric artery is diminutive, but patent. The bilateral renal arteries are patent, and otherwise unremarkable. The right common iliac artery is patent without calcified atherosclerosis. The right internal iliac artery is patent and demonstrates trace aneurysmal dilatation with mural thr ombus, unchanged from prior. The right external iliac artery is patent, without aneurysmal dilatation or significant stenosis. The right common femoral artery is patent without aneurysmal dilatation or significant stenosis. The right superficial femoral artery and profunda femoral artery are both patent and without signific ant stenosis, aneurysmal dilatation or dissection. The right popliteal artery is patent, of normal caliber, and without aneurysmal dilatation or dissect ion. Three-vessel runoff is identified within the right calf without additional flow appreciated, likely s econdary to bolus timing rather than intrinsic disease. The left common iliac artery is patent with dense calcified atherosclerosis. Aneurysmal dilatation to a maximal dimension of 2.7 cm is noted, unchanged from prior. The left external iliac artery is patent, without aneurysmal dilatation or significant stenosis. Aneurysmal dilatation of the left internal iliac artery is identified to a maximal dimension of 13.5 mm, largely unchanged from 2020. The left common femoral artery is patent without aneurysmal dilatation or significant stenosis. The left superficial femoral artery and profunda femoral artery are both patent and without significa nt stenosis, aneurysmal dilatation or dissection. The left popliteal artery is patent, of normal caliber, and without aneurysmal dilatation or dissecti on. Three-vessel runoff is identified within the left calf without additional flow associated, likely sec ondary to bolus timing rather than due to intrinsic disease. Lymph nodes: No pathologically enlarged or morphologically suspicious lymph nodes within the retroperitoneum, or t he root of the mesentery. Pelvic structures: The bladder is minimally distended. The prostate gland is enlarged with mass effect on the base of the bladder. Body wall and musculoskeletal: Age appropriate degenerative disease within the lumbosacral spine. IMPRESSION: Fusiform infrarenal abdominal aortic aneurysm, with mural thrombus measuring 4.8 x 5.4 x 5.7 cm (ante rior to posterior x medial to lateral x cranial to caudal dimension), increased in size from prior, a s detailed above. Reviewed, dictated and finalized at location A. IMPRESSION: Fusiform infrarenal abdominal aortic aneurysm, with mural thrombus measuring 4. 8 x 5.4 x 5.7 cm (anterior to posterior x medial to lateral x cranial to caudal dimension), increased in size from prior, as detailed above.
--- OUTSIDE RECORDS SUMMARY | 2025-04-13 09:08 | XMS_ITS | Clinical Summary ---
Author Organization [facility] Address [address] [place] [address] Care Team Providers Care Audit Consultant Name Role Phone Alicja Severino MD Primary Care Provider [phone] Criss Amezcua [employer] ARCHITECT- Unavailable Wendie Bautista MD Unavailable Allergies Active Allergy Reactions Criticality Noted Date Comments Sulfamethoxazole-Trimethoprim Hives 2019 Medications carvedilol 12.5 MG tablet Take 1 tablet (12.5 mg total) by mouth 2 (two) times daily. 05/02/20 20 Active tamsulosin 0.4 MG Cap Take 1 capsule (0.4 mg total) by mouth daily. 03/01/20 20 Active finasteride 5 MG tablet Take 1 tablet (5 mg total) by mouth daily. 02/28/20 20 Active fluticasone propionate 50 MCG/ACT nasal spray 2 sprays by Each Nostril route daily. 05/01/20 20 Active lovastatin 40 MG tablet Take 1 tablet (40 mg total) by mouth daily with supper. 04/21/20 20 Active aspirin EC 81 MG tablet Take 1 tablet (81 mg total) by mouth daily. Active NYSTOP powder 08/16/20 21 Active hydrocortisone 2.5 % cream 01/14/20 22 Active meclizine (ANTIVERT) 25 MG tablet Take 1 tablet (25 mg total) by mouth 3 (three) times daily. 03/10/20 25 Active ondansetron (ZOFRAN-ODT) 4 MG disintegrating tablet Take 1 tablet (4 mg total) by mouth every 4 (four) hours. 03/10/20 25 Active lisinopril (PRINIVIL) 20 MG tablet Take 1 tablet (20 mg total) by mouth daily. 90 tablet 3 03/21/20 25 026 Active lisinopril-hydroCH LOROthiazide 20-25 MG tablet Take 1 tablet by mouth daily. 02/20/20 20 025 Discontinued lisinopril (PRINIVIL) 20 MG tablet Take 1 tablet (20 mg total) by mouth daily. 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 Coronary artery disease 08/23/2020 Mitral valve prolapse 08/23/2020 HTN (hypertension) 09/03/2015 Pain of right hip joint 09/03/2015 Chest pain 09/03/2015 Benign prostatic hyperplasia 09/03/2015 Abnormal EKG 09/03/2015 Dyslipidemia AAA (abdominal aortic aneurysm) without rupture Encounters Date Type Department Care Team Description 03/21/2025 11:00 AM CDT Office Visit [facility] [address] [place] [phone] Chencho Quinteros APRN Mahaney Caldwell, Gretchen L, FNP-BC Follow Up (Patient here for 6 month f/u, no complaints) 03/21/2025 9:31 AM CDT - 03/21/2025 11:59 PM CDT Hospital Encounter [facility] [address] [place] [address] Chencho Quinteros APRN Discharge Disposition: Home or Self Care (Routine Discharge) 03/21/2025 Telephone [facility] [address] [place] [phone] Criss Amezcua FNP-SIMON Referral 03/21/2025 Travel 03/20/2025 Telephone [facility] [address] [place] [address] Lamar Cobb MD Appointment Reminder 03/15/2025 Abstract [facility] [address] [place] [address] Abstract, Doc Pccl 03/15/2025 Telephone [facility] [address] [place] [address] Criss Amezcua, [facility]- Lab Results 02/02/2025 Telephone [facility] [address] [place] [address] Chencho Quinteros, PERSONAL PROPERTY APPRAISER Other 01/25/2025 Telephone [facility] [address] [place] [address] Miriam Peña MD Reschedule from Last 3 [...] Sign Reading Time Taken Comments Blood Pressure 114/62 03/21/2025 10:54 AM CDT Pulse 61 03/21/2025 10:54 AM CDT Temperature 36.5 C (97.7 F) 06/04/2020 11:49 AM CDT Respiratory Rate 16 03/21/2025 10:5 4 AM CDT Oxygen Saturation 96% 03/21/2025 10: 54 AM CDT Inhaled Oxygen Concentration - - Weight 110.1 kg (242 lb 12.8 oz) 2024 10:54 AM CDT Height 177.8 cm (5' 10 ) 03/21/2025 10: 54 AM CDT Body Mass Index 34.84 03/21/2025 10:54 AM CDT Plan of Treatment Upcoming Encounters Date Type Department Care Team (Late st Contact Info) Description 06/11/2025 9:30 AM CDT Appointment [facility] [address] [place] [address] Wendie Bautista MD [address] [place] [address] Health Maintenance Due Date Last Done Comments ASCVD Statin 1940 DTaP, Tdap and Td Vaccines ( 1 - Tdap) 1960 Annual Medicare Wellness Visit 2006 Pneumococcal Vaccine: 50+ Years (2 of 2 - PPSV23) 11/19/2015 09/24/2015 RSV Immunization or 60+ Years (1 - 1-dose 75+ series) 2016 COVID-19 Vaccine ( - 2023-2 5 season) [...] Procedure Name Priority Date/Time Associated Diagnosis Comments USV AORTA ILIAC IVC DUPLEX LTD Routine 03/21/2025 10:14 AM CDT Abdominal aortic aneurysm (AAA) without rupture, unspecified part Infrarenal abdominal aortic aneurysm (AAA) without rupture Aneurysm of iliac artery from Last 3 Months Results * USV AORTA ILIAC IVC DUPLEX LTD (03/21/2025 10:14 AM CDT) Anatomical Region Laterality Modality NA Ultrasound 03/21/2025 9:58 AM CDT Narrative 03/21/2025 7:49 PM CDT SJS PVI DUPLEX SCAN AO-IL LIMITED Pat.Name: SUZANNE CLARK Pat.ID: [id number] .Date: 03/21/2025 Refer.MD: CHENCHO QUINTEROS Exam Time: 9:58:00 AM Study Type:PVI DUPLEX SCAN AO-IL LIMITED Height: 70 in Age: 5 1940,84Y Sex: M Sonogrphr: Chacho Barney RVT, RDCS Pat. Stat.:Outpatient CPT - 4: 85015 Aorta/IVC Duplex Reason for Study:AAA screening, Abdominal aortic aneurysm Race: W ++++++++++++++++++++++++++++++++++++ FINDINGS: ++++++++++++++++++++++++++++++++++++ AO: No hemodynamically significant stenosis is noted in the abdominal aorta. An abdominal aortic aneurysm noted in the infrarenal aorta measuring 5.49 cm x 5.53 cm. 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 R Iliac: Ectasia of the proximal common iliac artery noted measuring 1.66 cm. Aneurysm of the mid common iliac artery noted measuring 2.56 cm. L Iliac: Ectasia of the proximal common iliac artery noted measuring 1.54 cm. Aneurysm of the mid common iliac artery noted measuring 3.22 cm. ++++++++++++++++++++++++++++++++++++ MEASUREMENTS: ++++++++++++++++++++++++++++++++++++ DOPPLER Supra AO Supra AO PSV 78.5 cm/s Supra AO Dim 2 2.4 cm Supra AO Dim 1 2.39 cm Juxta AO Juxta AO PSV 60.6 cm/s Juxta AO Dim 2 2.01 cm Juxta AO Dim 1 1.92 cm Infra AO Infra AO PSV 21.2 cm/s Infra AO Dim 2 5.53 cm Infra AO Dim 1 5.49 cm Rt Mid Common Iliac Mid Common Bret 26.7 cm/s Mid Common Bret 2.56 cm Rt Prox Common Iliac Common Iliac PS 50.6 cm/s Common Iliac Di 1.66 cm Lt Mid Common Iliac Lt Mid Common I 22.7 cm/s Lt Mid Common I 3.22 cm Lt Prox Common Iliac Common Iliac PS 26.4 cm/s Common Iliac Di 1.54 cm <Electronic Signature> 03/21/2025 07:49 PM Wendie Bautista M.D. Procedure Note Wendie Bautista MD - 03/21/2025 [facility] PVI DUPLEX SCAN AO-IL LIMITED Pat.Name: SUZANNE CLARK Pat.ID: [id number] .Date: 03/21/2025 Refer.MD: CHENCHO QUINTEROS Exam Time: 9:58:00 AM Study Type:PVI DUPLEX SCAN AO-IL LIMITED Height: 70 in Age: 5 1940,84Y Sex: M Sonogrphr: Chacho Barney RVT, RUST Pat. Stat.:Outpatient CPT - 4: 78941 Aorta/IVC Duplex Reason for Study:AAA screening, Abdominal aortic aneurysm Race: W ++++++++++++++++++++++++++++++++++++ FINDINGS: ++++++++++++++++++++++++++++++++++++ AO: No hemodynamically significant stenosis is noted in the abdominal aorta. An abdominal aortic aneurysm noted in the infrarenal aorta measuring 5.49 cm x 5.53 cm. 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 R Iliac: Ectasia of the proximal common iliac artery noted measuring 1.66 cm. Aneurysm of the mid common iliac artery noted measuring 2.56 cm. L Iliac: Ectasia of the proximal common iliac artery noted measuring 1.54 cm. Aneurysm of the mid common iliac artery noted measuring 3.22 cm. ++++++++++++++++++++++++++++++++++++ MEASUREMENTS: ++++++++++++++++++++++++++++++++++++ DOPPLER Supra AO Supra AO PSV 78.5 cm/s Supra AO Dim 2 2.4 cm Supra AO Dim 1 2.39 cm Juxta AO Juxta AO PSV 60.6 cm/s Juxta AO Dim 2 2.01 cm Juxta AO Dim 1 1.92 cm Infra AO Infra AO PSV 21.2 cm/s Infra AO Dim 2 5.53 cm Infra AO Dim 1 5.49 cm Rt Mid Common Iliac Mid Common Bret 26.7 cm/s Mid Common Bret 2.56 cm Rt Prox Common Iliac Common Iliac PS 50.6 cm/s Common Iliac Di 1.66 cm Lt Mid Common Iliac Lt Mid Common I 22.7 cm/s Lt Mid Common I 3.22 cm Lt Prox Common Iliac Common Iliac PS 26.4 cm/s Common Iliac Di 1.54 cm <Electronic Signature> 03/21/2025 07:49 PM Wendie Bautista M.D. us Chencho N Neli PERSONAL PROPERTY APPRAISER US VASC Final R esult from Last 3 Months Insurance [facility] Advance Directives * Full Code (Latest Code Status on File) Date Activated Date Inactivated Comments 06/04/2020 3:32 PM 06/04/2020 8:14 PM Care Teams Audit Consultant Relationship Specialty Start Date End Date Alicja Severino MD [address] [place] [address] PCP - General INTERNAL MEDICINE 05/07/20 Criss Amezcua, [employer] ARCHITECT- [address] [place] [phone] NURSE PRACTITIONER 01/25/25 Wendie Bautista MD [address] [place] [address] Consulting Physician CARDIOVASCULAR DISEASE 03/21/25
--- OUTSIDE RECORDS SUMMARY | 2025-04-13 09:08 | XMS_ITS | Clinical Summary ---
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 Gender Identity Not on file Sexual Orientation Not on file Obstetrics History Last Filed Vital Signs Vital Sign Reading Time Taken Comments Blood Pressure 166/89 02/06/2019 9:06 AM CDT Pulse 62 02/06/2019 9:06 AM CDT Temperature - - Respiratory Rate - - Oxygen Saturation 98% 02/06/2019 9:06 AM CDT Inhaled Oxygen Concentration - - Weight 105.2 kg (232 lb) 10/29/2021 8:05 AM MEDICAL FRONT DESK COORDINATOR Height 177.8 cm (5' 10 ) 02/06/2019 9:06 AM CDT Body Mass Index 33.29 02/06/2019 9:06 AM CDT Plan of Treatment Not on file Insurance MEDICARE ADVANTAGE [facility] MEDICARE Address: [facility] [address] [place] [address] [facility] MEDICARE ADVANTAGE [facility] MED[facility] Address: [facility] [address] [place] [address] Care Teams Gear Generator Set Up Operator Relationship Specialty Start Date End Date Alicja Severino MD [address] [place], [place] [id number] PCP - General 02/22/17
--- OUTSIDE RECORDS SUMMARY | 2025-04-13 09:08 | XMS_ITS | Referral Summary ---
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 MEDICARE Address: [address] [address] [place] [address] [facility] MEDICARE Address: [address] [address] [place] [address] Care Teams Forensic Chemist Relationship Specialty Start Date End Date Alicja Severino MD [address] [place] [address] PCP - General 02/22/17
--- OUTSIDE RECORDS SUMMARY | 2025-04-13 09:08 | XMS_ITS | CONTINUITY OF CARE DOCUMENT ---
Author Name tamika, candiser Address Unknown Organization [facility] Address [address] [place] [address] Phone [phone] Care Team Providers Care Hydroponics Worker Name Role Phone Juan Rivera MD Unavailable [phone] ELEUTERIO DALE MD Unavailable [phone] ELEUTERIO DALE MD Unavailable PROBLEMS Condition [...] In-person encounter Office Visit Juan Rivera MD [place] [facility] HTNHypercholesterolemiaAbnormal EKGBPHChest pain-type to be determinedAAAHip [...] Rivera MD oxygen saturation, oximetry 95 % Jaun Rivera MD respiratory rate E&M 16 /min [...] Payer name Policy type / Coverage type [place] red democrat ID [facility] [id number] Other [id number] [place] Medicare [id number] TREATMENT PLAN Date Name Performer Cardiology Faxed [...] 4 years and follows vascular surgery at [place]. Juan Rivera MD Cardiology Faxed 11/12 0818:/=Has [...] Images Juan Rivera MD compl eted SNOMED-CT: 028298640 [id number] Current Medications Documented Juan Rivera MD completed SNOMED-CT: 929981388 Smoking Cessation Counseling Juan Rivera MD completed SNOMED-CT: 13567696 Physical Exam, Performed: Pulse Exam of Foot Juan Rivera MD completed
[2025-04-13 09:30] LABS: Estimated Glomerular Filt Rate > 60
== END 2025-04-13 08:55 | disposition home or self-care (01) ==
LOC: CHSIMG 08:57
PROVIDERS: PCP Internal Medicine
DX: I71.40 Abdominal aortic aneurysm, without rupture, unspecified (principal)
CPT/HCPCS: 75635; Q9967

== ENCOUNTER 2025-04-30 08:26 | Outpatient (CLI) | payer MEDICARE, SELFPAY ==
--- OUTSIDE RECORDS SUMMARY | 2025-04-30 08:44 | XMS_ITS | CONTINUITY OF CARE DOCUMENT ---
Author Name tamika, candiser Address Unknown Organization [facility] Address [address] [place] [address] Phone [phone] Care Team Providers Care National Account Manager Name Role Phone Juan Rivera MD Unavailable ELEUTERIO DALE MD Unavailable ELEUTERIO DALE MD Unavailable [phone] PROBLEMS Condition Status Date Provider Notes Abnormal EKG active Juan Rivera MD Chest pain-type to be determined active Josephine Rivera MD Hip joint pain, right active Juan Rivera MD AAA active Juan Rivera MD BPH active Juan Rivera MD Hypercholesterolemia active Juan Rivera MD HTN active Juan Rivera MD ENCOUNTERS Date Type Provider Location Encounter Diag nosis 6 - 9 In-person encounter Office Visit Juan Rivera MD [place] Office HTNHypercholesterolemiaAbnormal EKGBPHChest pain-type to be determinedAAAHip [...] Payer name Policy type / Coverage type [place] red alliance party ID [facility] [id number] Other [id number] [place] MED[place] Medicare [id number] TREATMENT PLAN Date Name Performer Cardiology Faxed [...] 4 years and follows vascular surgery at [place]. Juan Rivera MD Cardiology Faxed 11/12 0818:/=Has [...] Images Juan Rivera MD compl eted SNOMED-CT: [id number] Current Medications Documented Juan Rivera MD completed SNOMED-CT: 434574076 Smoking Cessation Counseling Juan Rivera MD completed SNOMED-CT: 66819065 Physical Exam, Performed: Pulse Exam of Foot Juan Rivera MD completed
--- OUTSIDE RECORDS SUMMARY | 2025-04-30 08:44 | XMS_ITS | Clinical Summary ---
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 Gender Identity Not on file Sexual Orientation Not on file Obstetrics History Last Filed Vital Signs Vital Sign Reading Time Taken Comments Blood Pressure 166/89 02/06/2019 9:06 AM CDT Pulse 62 02/06/2019 9:06 AM CDT Temperature - - Respiratory Rate - - Oxygen Saturation 98% 02/06/2019 9:06 AM CDT Inhaled Oxygen Concentration - - Weight 105.2 kg (232 lb) 10/29/2021 8:05 AM DIRECTOR OF MARKET INTELLIGENCE Height 177.8 cm (5' 10) 02/06/2019 9:06 AM CDT Body Mass Index 33.29 02/06/2019 9:06 AM CDT Plan of Treatment Not on file Insurance MEDICARE ADVANTAGE [facility] MEDICARE ADVANTAGE Care Teams Web Site Specialist Relationship Specialty Start Date End Date Alicja Severino MD [address] [place], [place] [id number] PCP - General 02/22/17
--- OUTSIDE RECORDS SUMMARY | 2025-04-30 08:44 | XMS_ITS | Referral Summary ---
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 Gender Identity Not on file Sexual Orientation Not on file Last Filed Vital Signs Vital Sign Reading Time Taken Comments Blood Pressure 166/89 02/06/2019 9:06 AM CDT Pulse 62 02/06/2019 9:06 AM CDT Temperature - - Respiratory Rate - - Oxygen Saturation 98% 02/06/2019 9:06 AM CDT Inhaled Oxygen Concentration - - Weight 105.2 kg (232 lb) 10/29/2021 8:05 AM LEG BREAKER Height 177.8 cm (5' 10) 02/06/2019 9:06 AM CDT Body Mass Index 33.29 02/06/2019 9:06 AM CDT Plan of Treatment Not on file Insurance Care Teams O And M Supervisor Relationship Specialty Start Date End Date Alicja Severino MD [address] [place] [address] PCP - General 02/22/17
[2025-04-30 09:04] LABS: Hematocrit 42.1 % (37.0-46.0); Hemoglobin 13.5 g/dL (12.4-15.3); Mean Corpuscular HGB Conc 32.1 g/dL (32-36); Mean Corpuscular Hemoglobin 31.1 pg (27.0-31.0); Mean Platelet Volume 10.2 fl (8.7-11.0); Platelet Count Result 170 K/mm3 (150-420); Red Blood Count 4.34 M/mm3 (4.70-6.10); Red Cell Distribution Width 13.6 % (11.6-14.4); White Blood Count 8.4 K/mm3 (4.8-10.8)
[2025-04-30 09:05] LABS: Add Urine Microscopic? YES; Appearance Urine Clear (Clear); Bilirubin Urine Negative (Negative); Blood Urine Negative (Negative); Color Urine Light Yellow (Yellow); Glucose Urine UA Negative (Negative); Ketones Urine Negative (Negative); Leukocyte Esterase Ur Negative LEU/UL (Negative); Nitrate Urine Negative (Negative); Protein Urine Negative (Negative); Specific Grav Ur 1.015 (1.010-1.020); pH Urine 7.5 (5.0-8.0)
[2025-04-30 09:10] LABS: RBC Urine 0-2 /hpf (0-2)
[2025-04-30 09:11] LABS: Bacteria Urine Trace /hpf; Squamous Epithelial Cell Urine Few /hpf (Few); WBC Urine 0-3 /hpf (0-3)
[2025-04-30 09:36] LABS: Alanine Aminotransferase 14 U/L (6-50); Alkaline Phosphatase 61 U/L (38-126); Anion Gap 1 mmol/L (4-12); Aspartate Amino Transferase 23 U/L (17-59); Blood Urea Nitrogen 20 mg/dL (9-20); Calcium 8.6 mg/dL (8.4-10.2); Carbon Dioxide 31 mmol/L (22-30); Chloride 106 mmol/L (98-107); Cholesterol 148 mg/dL (0-200); Creatine Kinase 48 U/L (55-170); Estimated Glomerular Filt Rate > 60; Glucose 87 mg/dL (65-110); HDL Direct 39 mg/dL; LDL Cholesterol Calculated 86 mg/dL (<130); Osmolality Calculated 287 mOsm/kg (285-295); Potassium 4.2 mmol/L (3.4-5.0); Sodium 138 mmol/L (137-145); Total Protein 6.3 g/dL (6.3-8.2); Triglycerides 114 mg/dL (<150)
[2025-04-30 09:42] LABS: Hemoglobin A1C 5.5 % (<5.7)
== END 2025-04-30 08:27 | disposition home or self-care (01) ==
LOC: CHSLAB 08:30
PROVIDERS: PCP Internal Medicine; Visit Provider Internal Medicine
DX: E78.2 Mixed hyperlipidemia (principal); R73.01 Impaired fasting glucose; N39.0 Urinary tract infection, site not specified
CPT/HCPCS: 36415; 80053; 80061; 81001; 82550; 83036; 85027

== ENCOUNTER 2025-06-07 10:32 | Outpatient (CLI) | payer MEDICARE, SELFPAY ==
--- NOTE | ~2025-06-07 | CT_ITS ---
EXAM: CT abdomen pelvis w con - 06/07/2025 10:50 CDT History: 85 years old Male with acute left flank pain TECHNIQUE: Multidetector CT of the abdomen and pelvis with intravenous contrast. Coronal and sagitta l reformats were also provided for review. Automatic exposure control was used for this study. CONTRAST: 100 cc of Optiray 350 was used for this study. COMPARISON: 04/13/2025. FINDINGS: VISUALIZED CHEST: Mild dependent changes. ABDOMEN and PELVIS: LIVER: Punctate calcified granuloma in the hepatic dome. GALLBLADDER: No calcified gallstones. BILE DUCTS: No dilatation. SPLEEN: Within normal limits. PANCREAS: Within normal limits. ADRENAL GLANDS: Within normal limits. KIDNEYS and URETERS: No hydronephrosis or hydroureter. No nephroureterolithiasis. URINARY BLADDER: Within normal limits. STOMACH and BOWEL: Scattered colonic diverticula are seen. Areas of fat stranding around the distal d escending colon compatible with acute uncomplicated diverticulitis. REPRODUCTIVE ORGANS: Enlarged prostate, measuring up to 5.8 cm. MESENTERY/PERITONEAL CAVITY: No free fluid or pneumoperitoneum. LYMPH NODES: No abdominal or pelvic lymphadenopathy. ABDOMINAL WALL: Bilateral fat-containing inguinal hernias. VASCULATURE: 4.7 cm infrarenal abdominal aortic aneurysm. MUSCULOSKELETAL: Multilevel degenerative changes of the spine. IMPRESSION: 1. Acute uncomplicated diverticulitis. No abscess seen. 2. 4.7 cm infrarenal abdominal aortic aneurysm. 3. Enlarged prostate. Reviewed, dictated and finalized at location A.
--- OUTSIDE RECORDS SUMMARY | 2025-06-07 10:36 | XMS_ITS | Data Portability ---
Author Organization [facility], [address] [facility] [facility] ([place]) Address [address] [place] [address] Care Team Providers Care Carpet Cutter Name Role Phone ELEUTERIO DALE Primary Care Provider [phone] Assessment Encounter Date Assessment Date Assessment LastModified by Organization Details LastModified Time 05/17/2025 05/17/2025 This is an 85-year-old man who presents for evaluation of his 5.5 cm infrarenal abdominal aortic aneurysm. I have reviewed the CT scan that was performed recently. It does demonstrate that his aneurysm is adequate for an endovascular repair. He also has a left common iliac artery aneurysm and in order to treat this we can perform an iliac branch endoprosthesis simultaneously with his EVAR to help maintain his pelvic perfusion. I discussed with him that this is an inpatient procedure which would be performed under general anesthesia. I discussed the risks including bleeding, infection, limb ischemia, visceral ischemia and further intervention. He expressed understanding and wishes to proceed. We will work on getting this scheduled for him in the near future. [facility] [email or web address] Not available 05/24/2025 17:56:12 Plan of Treatment Reminders Order Date Submit Date Provider Last Modified By Organization Details Last Modified Time Details Appointments None record ed. Lab None record ed. Referral None record ed. Procedures None record ed. Surgeries None record ed. Imaging None record ed. Medication Orders None record ed. Patient TargetsNo targets recorded. Patient InstructionsNo instructions recorded. Reason for Referral None Reported. Problems Name Problem SNOMED Code Status Onset Date Resolution Date Notes Provider Name and Address Organization Details Recorded Time Aneurysm of infrarenal abdominal aorta 531000093 Active 025 Kamila Christine [facility] 5 10:01:09 Problem Notes None recorded. Medical Equipment None Reported. Allergies No known drug allergies Medications Name Sig Start Date Stop Date Status Note LastModified by Organization Details LastModified Time amoxicillin 500 mg capsule TAKE 1 CAPSULE BY MOUTH 3 TIMES A DAY 05/10 completed Not Available Not Available Not Available carvedilol 12.5 mg tablet Take 1 tablet twice a day by oral route. active Not Available Not Available No t Available lovastatin 40 mg tablet Take 1 tablet every day by oral route. active Not Available Not Available No t Available tamsulosin 0.4 mg capsule Take 1 capsule every day by oral route. active Not Available Not Available No t Available meclizine 25 mg tablet TAKE 1 TABLET BY MOUTH 3 TIMES A DAY active Not Available Not Available No t Available aspirin 81 mg tablet Take 1 tablet every day by oral route. active Not Available Not Available No t Available lisinopril 10 mg-hydrochl orothiazide 12.5 mg tablet Take 1 tablet every day by oral route. active Not Available Not Available No t Available ondansetron 4 mg disintegrat ing tablet DISSOLVE 1 TABLET UNDER THE TONGUE EVERY 4 HOURS NEEDED FOR NAUSEA/VO MITTING active Not Available Not Available No t Available finasteride 5 mg tablet Take 1 tablet every day by oral route. active Not Available Not Available No t Available nystatin active Not Available Not Avai lable Not Available Allergy Relief (fluticason e) 50 mcg/actuati on nasal spray,suspe nsion [place] 1 spray every day by intranasa l route. active Not Available Not Available No t Available Paxlovid 300 mg (150 mg x 2)-100 mg tablets in a dose pack TAKE BY ORAL ROUTE 2 TIMES PER DAY PER PACKAGE DIRECTION S FOR 5 DAYS 05/17 completed Not Available Not Available Not Available Vitals Date Recorded Heart rate Respiratory rate Oxygen saturation Oxygen saturation in Arterial blood by Pulse oximetry Systolic And Diastolic Provider Name and Address Organization Details Last Updated DateTime 5 57 /min 20 /min 97 % 97 % 158/84 mm[Hg] Kamila Christine [facility] 5 10:50:16 Social History Question Answer Notes LastModified by Organizat ion Details LastModified Time Tobacco Smoking Status Former Smoker Not Available Health Note 05/10/2025 11:09:54 Do You Have An Advance Directive? No [email or web address] Information not available 05/10/2025 What Is Your Level Of Caffeine Consumption? Moderate [email or web address] Information not available 05/10/2025 How Many Times Per Week Do You Exercise? 3-4 Times Per Week [email or web address] Information not available 05/10/2025 When Did You Quit Smoking? 16+yearssince lastcigarette [email or web address] Information not available 05/10/2025 What Was The Date Of Your Most Recent Tobacco Screening? 05/17/2025 [email or web address] Information not available 05/10/2025 What Is Your Relationship Status? [email or web address] Information not available 05/10/2025 Sex: Unknown Functional Status Question Answer Note LastModified by Organizat ion Details LastModified Time How many times per week do you consume alcohol? Less than 1 time per week [email or web address] Information not available 05/10/2025 Do you use any illicit or recreational drugs? No [email or web address] Information not available 05/10/2025 Do you or have you ever used any other forms of tobacco or nicotine? No [email or web address] Information not available 05/10/2025 What is your level of alcohol consumption? Occasional [email or web address] Information not available 05/10/2025 Are you currently employed? No [email or web address] Information not available 05/10/2025 What is your occupation? Retired [email or web address] Information not available 05/10/2025 What is your exercise level? Moderate [email or web address] Information not available 05/10/2025 Mental Status None recorded. Family History Relationship Description Onset Age of this Age Resolved Age Notes LastModified by Organization Details LastModified Time Father No current problems or disability [email or web address] Not available 05/10 11:09:52 Mother No current problems or disability [email or web address] Not available 05/10 11:09:52 Medical History Condition Response Attention-deficit Hyperactivity Disorder N High Blood Pressure Y Thyroid Problems N COPD N Depression N Anemia N Diabetes N Anxiety Disorder N Bleeding Disorder N Arthritis N Hyperlipidemia N Cancer N Stroke N Asthma N Seizures N Heart Disease N Fibromyalgia N Osteoporosis N Kidney Disease N Past Encounters Encounter ID Performer Location Encounter Start Date Encounter Closed Date Diagnosis/Indication Diagnosis SNOMED-CT Code Diagnosis ICD10 Code Diagnosis Note [id number] Prerna Schmidt MD [address] [facility] ([place]) [address] [place] [address] 05/17/2025 10:09:36 05/17/2025 12:03:26 Aneurysm of infrarenal abdominal aorta 959336070 I71.43 Health Concerns Section Related Observation LastModified by Organization Detai ls LastModified Time None Recorded Concern Status LastModified by Organization Details LastModified Time None Recorded Advance Directives Directive N: Payers Insurance Date Sequence Insurance Name Policy Number Policy Farr Covered Member ID Farr Member ID Guarantor Name 05/17/2025 1 [place] Steve Clark [id number] Steve Clark 05/09/2025 1 *SELF PAY* No isi Franco [place] 06/05/2025 1 [facility] (MEDICARE REPLACEMENT/A DVANTAGE - PPO) [id number] Steve Clark [id number] Steve Franco [place] Notes Date Note Type Note Provider Name and Address Organization Details Recorded Time 05/17/2025 text/html This is an 85-year-old man who presents for an evaluation of an abdominal aortic aneurysm. This has been monitored in the past by Dr. Deluna. On a recent duplex it was found to measure 5.5 cm in diameter. He was subsequently referred to Dr. Papo Case who ordered a CT scan for him which demonstrated that he was a candidate for an endovascular repair. The patient was subsequently referred to our office. He denies any other personal history if aneurysm other than his AAA. He has no known family history of aneurysm. He denies any routine abdominal, back, or flank pain. He is a former smoker but he quit smoking 40 years ago. He states overall he lives on his own and takes care of himself. He denies any routine chest pain with activity or any dyspnea with exertion. He states he can go up and down several flights of stairs without issue. Prerna Schmidt MD [address] [place] [address], [id number], [facility] 06/04/2025 09:41:04
--- OUTSIDE RECORDS SUMMARY | 2025-06-07 10:36 | XMS_ITS | Clinical Summary ---
Author Organization [facility] Address [address] [place] [address] Care Team Providers Care Casing Mixer Name Role Phone Alicja Severino MD Primary Care Provider [phone] Allergies No known active allergies Medications tamsulosin [...] on file Legal Sex Male 12:18 AM CLIENT CARE REPRESENTATIVE Gender Identity Not on file Sexual Orientation Not on file Obstetrics History Last Filed Vital Signs Vital Sign Reading Time Taken Comments Blood Pressure 166/89 02/06/2019 9:06 AM CDT Pulse 62 02/06/2019 9:06 AM CDT Temperature - - Respiratory Rate - - Oxygen Saturation 98% 02/06/2019 9:06 AM CDT Inhaled Oxygen Concentration - - Weight 105.2 kg (232 lb) 10/29/2021 8:05 AM CLIENT CARE REPRESENTATIVE Height 177.8 cm (5' 10) 02/06/2019 9:06 AM CDT Body Mass Index 33.29 02/06/2019 9:06 AM CDT Plan of Treatment Not on file Insurance MEDICARE ADVANTAGE [place] MEDICARE ADVANTAGE Care Teams Casing Mixer Relationship Specialty Start Date End Date Alicja Severino MD [address] [place], [place] [id number] PCP - General 02/22/17
--- OUTSIDE RECORDS SUMMARY | 2025-06-07 10:36 | XMS_ITS | Clinical Summary ---
Author Organization [facility] Address [address] [place] [address] Care Team Providers Care Sustainable Development Policy Analyst Name Role Phone Alicja Severino MD Primary Care Provider [phone] Criss Amezcua [facility]- Unavailable Wendie Bautista MD Unavailable Allergies Active Allergy Reactions Criticality Noted Date Comments Sulfamethoxazole-Trimethoprim Hives 2019 Medications carvedilol 12.5 MG tablet Take 1 tablet (12.5 mg total) by mouth 2 (two) times daily. 0 Active tamsulosin 0.4 MG Cap Take 1 capsule (0.4 mg total) by mouth daily. 0 Active finasteride 5 MG tablet Take 1 tablet (5 mg total) by mouth daily. 0 Active fluticasone propionate 50 MCG/ACT nasal spray 2 sprays by Each Nostril route daily. 0 Active lovastatin 40 MG tablet Take 1 tablet (40 mg total) by mouth daily with supper. 0 Active aspirin EC 81 MG tablet Take 1 tablet (81 mg total) by mouth daily. Active NYSTOP powder 1 Active hydrocortisone 2.5 % cream 2 Active meclizine (ANTIVERT) 25 MG tablet Take 1 tablet (25 mg total) by mouth 3 (three) times daily. 5 Active ondansetron (ZOFRAN-ODT) 4 MG disintegrating tablet Take 1 tablet (4 mg total) by mouth every 4 (four) hours. 5 Active lisinopril (PRINIVIL) 20 MG tablet Take 1 tablet (20 mg total) by mouth daily. 90 tablet 3 5 03/21/20 26 Active Active Problems Problem Noted Date Diagnosed Date Morbid (severe) obesity due to excess calories 0 01/14/2023 Aneurysm of iliac artery 07/21/2022 Coronary artery disease 08/23/2020 Mitral valve prolapse 08/23/2020 HTN (hypertension) 09/03/2015 Pain of right hip joint 09/03/2015 Chest pain 09/03/2015 Benign prostatic hyperplasia 09/03/2015 Abnormal EKG 09/03/2015 Dyslipidemia AAA (abdominal aortic aneurysm) without rupture Encounters Date Type Department Care Team Description 04/13/2025 Telephone [facility] [address] [place] [address] Wendie Bautista MD Appointment Request 03/21/2025 11:00 AM CDT Office Visit [facility] [place] [address] [place] [address] Chencho Quinteros APRN Mahaney Caldwell, Gretchen L, FNP-SIMON Follow Up (Patient here for 6 month f/u, no complaints) 03/21/2025 9:31 AM CDT - 03/21/2025 11:59 PM CDT Hospital Encounter [facility] [address] [place] [address] Chencho Quinteros APRN Discharge Disposition: Home or Self Care (Routine Discharge) 03/21/2025 Telephone [facility] [address] [place] [address] Criss Amezcua FNP-SIMON Referral 03/21/2025 Travel 03/20/2025 Telephone [facility] [address] [place] [address] Lamar Cobb MD Appointment Reminder 03/15/2025 Abstract [facility] [address] [place] [address] Abstract, Doc Pccl 03/15/2025 Telephone [facility] [address] [place] [address] Criss Amezcua, [facility] Lab Results from Last 3 Months Family History Medical [...] 10:54 AM CDT Height 177.8 cm (5' 10) 03/21/2025 10: 54 AM CDT Body Mass Index 34.84 03/21/2025 10:54 AM CDT Plan of Treatment Upcoming Encounters Date Type Department Care Team (Late st Contact Info) Description 06/11/2025 10:[address] [facility] [address] [place] [address] Wendie Bautista MD [address] [place] [address] Health Maintenance Due Date Last Done Comments ASCVD Statin 1940 DTaP, Tdap and Td Vaccines ( 1 - Tdap) 1960 Annual Medicare Wellness Visit 2006 Pneumococcal Vaccine: 50+ Years (2 of 2 - PPSV23) 11/19/2015 09/24/2015 RSV Immunization or 60+ Years (1 - 1-dose 75+ series) 2016 COVID-19 Vaccine (2023-2 5 season) 2024 Zoster Vaccines Completed 07/21/2019, [...] SCAN AO-IL LIMITED Pat.Name: SUZANNE CLARK Pat.ID: [id number] .Date: 03/21/2025 Refer.MD: CHENCHO QUINTEROS Exam Time: 9:58:00 AM Study Type:PVI DUPLEX SCAN AO-IL LIMITED Height: 70 in Age: 5 1940,84Y Sex: M Sonogrphr: Chacho Barney RVT, RDCS Pat. Stat.:Outpatient CPT - 4: 66854 Aorta/IVC Duplex Reason for Study:AAA screening, Abdominal [...] Procedure Note Wendie Bautista MD - 03/21/2025 [facility] PVI DUPLEX SCAN AO-IL LIMITED Pat.Name: SUZANNE CALRK Pat.ID: [id number] .Date: 03/21/2025 Refer.MD: CHENCHO QUINTEROS Exam Time: 9:58:00 AM Study Type:PVI DUPLEX SCAN AO-IL LIMITED Height: 70 in Age: 5 1940,84Y Sex: M Sonogrphr: Chacho Barney RVT, RDCS Pat. Stat.:Outpatient CPT - 4: 52560 Aorta/IVC Duplex Reason for Study:AAA screening, Abdominal [...] Signature> 03/21/2025 07:49 PM Wendie Bautista M.D. Chencho Quinteros DEDICATED INTERMODAL TRUCK DRIVER US VASC Final R esult from Last 3 Months Insurance [place] [phone] Advance Directives * Full Code (Latest Code Status on File) Date Activated Date Inactivated Comments 06/04/2020 3:32 PM 06/04/2020 8:14 PM Care Teams Sustainable Development Policy Analyst Relationship Specialty Start Date End Date Alicja Severino MD [address] [place] [id number] PCP - General INTERNAL MEDICINE 05/07/20 Criss Amezcua, COUNTER HAND- [address] [place] [address] NURSE PRACTITIONER 01/25/25 Wendie Bautista MD [address] [place] [address] Consulting Physician CARDIOVASCULAR DISEASE 03/21/25
--- OUTSIDE RECORDS SUMMARY | 2025-06-07 10:36 | XMS_ITS | Referral Summary ---
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 Gender Identity Not on file Sexual Orientation Not on file Last Filed Vital Signs Vital Sign Reading Time Taken Comments Blood Pressure 166/89 02/06/2019 9:06 AM CDT Pulse 62 02/06/2019 9:06 AM CDT Temperature - - Respiratory Rate - - Oxygen Saturation 98% 02/06/2019 9:06 AM CDT Inhaled Oxygen Concentration - - Weight 105.2 kg (232 lb) 10/29/2021 8:05 AM LAUNDRY ROUTE DRIVER Height 177.8 cm (5' 10) 02/06/2019 9:06 AM CDT Body Mass Index 33.29 02/06/2019 9:06 AM CDT Plan of Treatment Not on file Insurance Care Teams Jointer Machine Operator Relationship Specialty Start Date End Date Alicja Severino MD [address] [place] [address] PCP - General 02/22/17
[2025-06-07 10:51] LABS: Hematocrit 43.6 % (37.0-46.0); Hemoglobin 14.2 g/dL (12.4-15.3); Immature Granulocyte Percent A 0.5 % (0.0-0.0); Lymphocytes Absolute Auto 2.35 K/mm3 (1.10-4.50); Mean Corpuscular HGB Conc 32.6 g/dL (32-36); Mean Corpuscular Hemoglobin 31.3 pg (27.0-31.0); Mean Corpuscular Volume 96.0 fL (78.0-102.0); Nucleated Red Blood Cells Absolute Auto 0.00 K/mm3 (0.00-0.00); Nucleated Red Blood Cells Perc 0.0 % (0-0.0); Platelet Count Result 176 K/mm3 (150-420); Red Blood Count 4.54 M/mm3 (4.70-6.10); White Blood Count 12.8 K/mm3 (4.8-10.8)
[2025-06-07 10:52] LABS: Add Urine Microscopic? YES; Appearance Urine Clear (Clear); Glucose Urine UA Negative (Negative); Leukocyte Esterase Ur Negative (Negative); Nitrate Urine Negative (Negative); Specific Grav Ur 1.010 (1.010-1.020)
[2025-06-07 11:05] LABS: Alanine Aminotransferase 18 U/L (6-50); Albumin Level 4.4 g/dL (3.5-5.1); Alkaline Phosphatase 67 U/L (38-126); Anion Gap 5 mmol/L (4-12); Aspartate Amino Transferase 26 U/L (17-59); Bilirubin,Total 1.5 mg/dL (0.2-1.3); Blood Urea Nitrogen 18 mg/dL (9-20); Calcium 8.7 mg/dL (8.4-10.2); Carbon Dioxide 30 mmol/L (22-30); Chloride 104 mmol/L (98-107); Estimated Glomerular Filt Rate > 60; Glucose 98 mg/dL (65-110); Osmolality Calculated 289 mOsm/kg (285-295); Potassium 4.4 mmol/L (3.4-5.0); Sodium 139 mmol/L (137-145); Total Protein 7.1 g/dL (6.3-8.2)
== END 2025-06-07 10:33 | disposition home or self-care (01) ==
PROVIDERS: PCP Internal Medicine; Visit Provider Internal Medicine
DX: R10.32 Left lower quadrant pain (principal); K57.92 Diverticulitis of intestine, part unspecified, without perforation or abscess without bleeding; I71.43 Infrarenal abdominal aortic aneurysm, without rupture; N40.0 Benign prostatic hyperplasia without lower urinary tract symptoms
CPT/HCPCS: 36415; 74177; 80053; 81001; 83605; 85025; Q9967

== ENCOUNTER 2025-06-14 13:22 | Outpatient (CLI) | payer MEDICARE, SELFPAY ==
--- OUTSIDE RECORDS SUMMARY | 2025-06-14 13:25 | XMS_ITS | Clinical Summary ---
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 Gender Identity Not on file Sexual Orientation Not on file Obstetrics History Last Filed Vital Signs Vital Sign Reading Time Taken Comments Blood Pressure 166/89 02/06/2019 9:06 AM CDT Pulse 62 02/06/2019 9:06 AM CDT Temperature - - Respiratory Rate - - Oxygen Saturation 98% 02/06/2019 9:06 AM CDT Inhaled Oxygen Concentration - - Weight 105.2 kg (232 lb) 10/29/2021 8:05 AM MAINTENANCE TEAM LEADER Height 177.8 cm (5' 10) 02/06/2019 9:06 AM CDT Body Mass Index 33.29 02/06/2019 9:06 AM CDT Plan of Treatment Not on file Insurance MEDICARE ADVANTAGE [facility] MEDICARE ADVANTAGE Care Teams Flask Pusher Relationship Specialty Start Date End Date Alicja Severino MD [address] [place], [place] [id number] PCP - General 02/22/17
--- OUTSIDE RECORDS SUMMARY | 2025-06-14 13:25 | XMS_ITS | Referral Summary ---
Author Organization [facility] Address [address] [place] [address] Care Team Providers Care Safety Instruction Police Officer Name Role Phone Alicja Severino MD Primary Care Provider [phone] Allergies No known active allergies Medications tamsulosin [...] on file Legal Sex Male 12:18 AM EMERGENCY ROOM TECHNICIAN Gender Identity Not on file Sexual Orientation Not on file Last Filed Vital Signs Vital Sign Reading Time Taken Comments Blood Pressure 166/89 02/06/2019 9:06 AM CDT Pulse 62 02/06/2019 9:06 AM CDT Temperature - - Respiratory Rate - - Oxygen Saturation 98% 02/06/2019 9:06 AM CDT Inhaled Oxygen Concentration - - Weight 105.2 kg (232 lb) 10/29/2021 8:05 AM EMERGENCY ROOM TECHNICIAN Height 177.8 cm (5' 10) 02/06/2019 9:06 AM CDT Body Mass Index 33.29 02/06/2019 9:06 AM CDT Plan of Treatment Not on file Insurance Care Teams Safety Instruction Police Officer Relationship Specialty Start Date End Date Alicja Severino MD [address] [place] [address] PCP - General 02/22/17
--- OUTSIDE RECORDS SUMMARY | 2025-06-14 13:25 | XMS_ITS | Clinical Summary ---
Author Organization [facility] Address [address] [place] [address] Care Team Providers Care Immunohematologist Name Role Phone Alicja Severino MD Primary Care Provider [phone] Criss Amezcua [facility]- Unavailable Wendie Bautista MD Unavailable Allergies Active [...] Encounters Date Type Department Care Team Description 06/11/2025 9:49 AM CDT - 06/11/2025 11:59 PM CDT Hospital Encounter [facility] [address] [place] [address] Wendie Bautista MD Arrived Discharge Disposition: Home or Self Care (Routine Discharge) 06/11/2025 Travel 04/13/2025 Telephone [facility] [place] [address] [place] [address] Wendie Bautista MD Appointment Request 03/21/2025 11:00 AM CDT Office Visit [facility] [place] [address] [place] [phone] Chencho Quinteros APRN Mahaney Caldwell, Gretchen L, FNP-SIMON Follow Up (Patient here for 6 month f/u, no complaints) 03/21/2025 9:31 AM CDT - 03/21/2025 11:59 PM CDT Hospital Encounter [facility] [address] [place] [address] Chencho Quinteros APRN Discharge Disposition: Home or Self Care (Routine Discharge) 03/21/2025 Telephone [facility] [address] [place] [address] Criss Amezcua FNP-SIMON Referral 03/21/2025 Travel 03/20/2025 Telephone [facility] [address] [place] [address] Lamar Cobb MD Appointment Reminder 03/15/2025 Abstract [facility] [address] [place] [address] Abstract, Doc Pccl 03/15/2025 Telephone [facility] [address] [place] [address] Criss Amezcua, HORSE STUD WORKER- Lab Results from Last 3 Months Family [...] 03/21/2025 10:54 AM CDT Plan of Treatment Health Maintenance Due Date Last Done Comments [...] Procedure Name Priority Date/Time Associated Diagnosis Comments USE ECHOCARDIOGRAM Routine 06/11/2025 10 :42 AM CDT Aneurysm of ascending aorta without rupture USV AORTA ILIAC IVC DUPLEX LTD Routine 03/21/2025 10:14 AM CDT Abdominal aortic aneurysm (AAA) without rupture, unspecified part 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 Stat.:Outpatient Reason for Study:Aneurysm of ascending aorta without rupture Procedures: 2D, M-mode, Doppler, Color Flow, Study performed at [facility], [place], [place] and interpreted by [facility]. ++++++++++++++++++++++++++++++++++++ SUMMARY: ++++++++++++++++++++++++++++++++++++ The left ventricular size is normal. Estimated left ventricular ejection fraction is 55-60%. Left ventricular diastolic function is abnormal (grade 1 - impaired relaxation). Wall motion appears normal in all segments. The right ventricle is normal in size and function. The proximal ascending aorta measures 3.9cm. There is trace mitral regurgitation. There is trace tricuspid regurgitation. ++++++++++++++++++++++++++++++++++++ FINDINGS: ++++++++++++++++++++++++++++++++++++ LV: The left ventricular size is normal. The left ventricular systolic function is normal. Estimated left ventricular ejection fraction is 55-60%. Left ventricular diastolic function is abnormal (grade 1 - impaired relaxation). WM: Wall motion appears normal in all segments. RV: The right ventricular size is normal. Right ventricular systolic function is normal. LA: The left atrial size is mildly enlarged. RA: Right atrial size is mildly enlarged. KELLEY: No evidence of pericardial effusion. AO: Normal aortic root. Ascending aorta is mildly dilated. The proximal ascending aorta measures 3.9cm. SVn: Inferior vena cava is normal. AV: The aortic valve is trileaflet. There is no aortic stenosis. There is no evidence of aortic regurgitation. MV: The mitral valve is structurally normal. There is trace mitral regurgitation. PV: Pulmonic valve not well visualized. TV: The tricuspid valve appears structurally normal. There is trace tricuspid regurgitation. <Electronic Signature> 06/11/2025 07:21 PM Wendie Bautista M.D. Procedure Note Wendie Bautista MD - 06/11/2025 Echocardiography Report Pat.Name: Suzanne Clark tere Pat.ID: [id number] .Date: 06/11/2025 Refer.MD: Sonja [facility] Exam Time: 9:56:00 AM Study Type:[facility] Height: 71 in Weight: 230 lb BSA: 2.24 m2 Age: 5 1940,85Y Sex: M Sonogrphr: Sf Pat. Stat.:Outpatient Reason for Study:Aneurysm of ascending aorta without rupture Procedures: 2D, M-mode, Doppler, Color Flow, Study performed at [facility], [place], [place] and interpreted by [facility]. ++++++++++++++++++++++++++++++++++++ SUMMARY: ++++++++++++++++++++++++++++++++++++ The left ventricular size is normal. Estimated left ventricular ejection fraction is 55-60%. Left ventricular diastolic function is abnormal (grade 1 - impaired relaxation). Wall motion appears normal in all segments. The right ventricle is normal in size and function. The proximal ascending aorta measures 3.9cm. There is trace mitral regurgitation. There is trace tricuspid regurgitation. ++++++++++++++++++++++++++++++++++++ FINDINGS: ++++++++++++++++++++++++++++++++++++ LV: The left ventricular size is normal. The left ventricular systolic function is normal. Estimated left ventricular ejection fraction is 55-60%. Left ventricular diastolic function is abnormal (grade 1 - impaired relaxation). WM: Wall motion appears normal in all segments. RV: The right ventricular size is normal. Right ventricular systolic function is normal. LA: The left atrial size is mildly enlarged. RA: Right atrial size is mildly enlarged. KELLEY: No evidence of pericardial effusion. AO: Normal aortic root. Ascending aorta is mildly dilated. The proximal ascending aorta measures 3.9cm. SVn: Inferior vena cava is normal. AV: The aortic valve is trileaflet. There is no aortic stenosis. There is no evidence of aortic regurgitation. MV: The mitral valve is structurally normal. There is trace mitral regurgitation. PV: Pulmonic valve not well visualized. TV: The tricuspid valve appears structurally normal. There is trace tricuspid regurgitation. <Electronic Signature> 06/11/2025 07:21 PM Wendie Bautista M.D. us Wendie Bautista MD ECHO Final Result * USV AORTA ILIAC IVC DUPLEX LTD (03/21/2025 10:14 AM CDT) Anatomical Region Laterality Modality NA Ultrasound 03/21/2025 9:58 AM CDT Narrative 03/21/2025 7:49 PM CDT SJS PVI DUPLEX SCAN AO-IL LIMITED Pat.Name: SUZANNE CLARK Pat.ID: [id number] .Date: 03/21/2025 Refer.MD: CHENCHO QUINTEROS Exam Time: 9:58:00 AM Study Type:PVI DUPLEX SCAN AO-IL LIMITED Height: 70 in Age: 5 1940,84Y Sex: M Sonogrphr: Chacho Barnye RVT, [facility] Pat. Stat.:Outpatient CPT - 4: 57428 Aorta/IVC Duplex Reason for Study:AAA screening, Abdominal [...] Procedure Note Wendie Bautista MD - 03/21/2025 [facility] PVI DUPLEX SCAN AO-IL LIMITED Pat.Name: SUZANNE CLARK Pat.ID: [id number] St.Date: 03/21/2025 Refer.MD: CHENCHO QUINTEROS Exam Time: 9:58:00 AM Study Type:PVI DUPLEX SCAN AO-IL LIMITED Height: 70 in Age: 5 1940,84Y Sex: M Sonogrphr: Chacho Barney RVT, RD Pat. Stat.:Outpatient CPT - 4: 13751 Aorta/IVC Duplex Reason for Study:AAA screening, Abdominal [...] Wendie Bautista M.D. us Chencho N Neli FLOATING DERRICK OPERATOR US VASC Final R esult from Last 3 Months Insurance Advance Directives * Full Code (Latest Code Status on File) Date Activated Date Inactivated Comments 06/04/2020 3:32 PM 06/04/2020 8:14 PM Care Teams Immunohematologist Relationship Specialty Start Date End Date Alicja Severino MD [address] [place] [address] PCP - General INTERNAL MEDICINE 05/07/20 Criss Amezcua, [facility] [address] [place] [phone] NURSE PRACTITIONER 01/25/25 Wendie Bautista MD [address] [place] [address] Consulting Physician CARDIOVASCULAR DISEASE 03/21/25
[2025-06-14 13:33] LABS: Hematocrit 41.8 % (37.0-46.0); Hemoglobin 13.6 g/dL (12.4-15.3); Mean Corpuscular HGB Conc 32.5 g/dL (32-36); Mean Corpuscular Hemoglobin 31.3 pg (27.0-31.0); Mean Corpuscular Volume 96.3 fL (78.0-102.0); Platelet Count Result 221 K/mm3 (150-420); Red Blood Count 4.34 M/mm3 (4.70-6.10); White Blood Count 11.2 K/mm3 (4.8-10.8)
== END 2025-06-14 13:23 | disposition home or self-care (01) ==
PROVIDERS: PCP Internal Medicine; Visit Provider Internal Medicine
DX: K57.92 Diverticulitis of intestine, part unspecified, without perforation or abscess without bleeding (principal)
CPT/HCPCS: 36415; 85027

== ENCOUNTER 2025-07-22 01:52 | Emergency (ER) | payer MEDICARE, SELFPAY ==
--- NOTE | ~2025-07-22 | CT_ITS ---
EXAMINATION: CT abdomen pelvis w con DATE: 07/22/2025 03:11 INDICATION: Left lower quadrant and left lateral abdominal pain. TECHNIQUE: Computed tomography (CT) of the abdomen and pelvis was performed with 100 cc Omnipaque 350 intravenous contrast. The dose-length product was 1298.70 mGy-cm. Automated exposure control and iterative reconstruction technique were employed. COMPARISON: CT dated 06/07/2025 FINDINGS: Dependent atelectasis. Heart size normal. No significant pleural or pericardial effusion. There is an endovascular graft which has been placed in the interim traversing the abdominal aortic aneurysm which measures 5.3 cm. Graft extends into the iliac vessels. The liver, spleen, pancreas, adrenal glands and left kidney are unremarkable. There are right renal cysts. Normal appendix. There are accessory splenules. There is thickening with surrounding inflammation involving the descending colon, consistent with acute uncomplicated diverticulitis. No evidence for perforation or abscess. Enlarged prostate gland. Moderate osteoarthritis of the hips. Mild-moderate lower thoracic and lumbar spondylosis. No free air or free fluid. IMPRESSION: 1. Acute uncomplicated diverticulitis of the descending colon. 2: Infrarenal abdominal aortic aneurysm measuring 5.3 cm with interval placement of endovascular graft traversing the aneurysm extending into the iliac vessels. Reviewed, dictated and finalized at location O. IMPRESSION: 1. Acute uncomplicated diverticulitis of the descending colon. 2: Infrarenal abdominal aortic aneurysm measuring 5.3 cm with interval placemen t of endovascular graft traversing the aneurysm extending into the iliac vessel s.
[2025-07-22 01:57] VITALS: BP 129/67; PULSE 75; RESP 18; TEMP 37.1; O2SAT 95
--- NOTE | 2025-07-22 02:01 | ECG_ITS ---
Test Date: 2025-07-22 02:35:11 Measurements Intervals [place] Rate: 73 P: 37 VA: 172 QRS: -44 QRSD: 98 T: 46 QT: 375 QTc: 415 Interpretive Statements SINUS RHYTHM LEFT ANTERIOR FASCICULAR BLOCK BASELINE WANDER- V3 ABNORMAL ECG No previous ECG available for comparison Electronically Signed On 07-22-2025 07:32:19 CDT by Zach Guzman D.O.
--- NOTE | 2025-07-22 02:04 | ED.ABDPAIN ---
HPI - Abdominal Pain General Chief Complaint: Abdominal Pain Stated Complaint: Recent Surgery Issues Time Seen by Provider: 07/22/25 02:01 Source: patient and family Mode of arrival: ambulatory Limitations: no limitations History of Present Illness HPI narrative: this is an 85-year-old male that presents with abdominal pain localized to his left lower quadrant started earlier this evening does have a history of diverticulitis rates pain about an add of 10 with nausea currently no vomiting, had a recent procedure with some history of abdominal aortic aneurysm stent placed approximately 1 to 2 weeks ago, is currently no diarrhea or constipation no fever chills no hematuria or dysuria. Patient denies having any chest pain or shortness of breath. MD elicited complaint: abdominal pain Pertinent past history: none Onset (ago): hour(s) Pain Consistency: constant Location: LLQ Severity: severe Pain scale (0-10): 8 Quality: aching Radiation: LLQ Migration to: no migration Exacerbating factors: nothing Relieving factors: nothing Related Data Home Medications ?Medication ?Instructions ?Recorded ?Confirmed ?Last Taken ?Type carvedilol 12.5 mg tablet 12.5 mg PO BID 05/24/21 02/05/22 02/19/22 09:00 History finasteride 5 mg tablet 5 mg PO DAILY 05/24/21 02/05/22 02/19/22 09:00 History lisinopril 20 1 tablet PO DAILY 05/24/21 02/05/22 02/19/22 09:00 History mg-hydrochlorothiazide 25 mg tablet lovastatin 40 mg tablet 40 mg PO 05/24/21 02/05/22 02/19/22 09:00 History tamsulosin 0.4 mg capsule 0.4 mg PO 05/24/21 02/05/22 Unknown History aspirin 81 mg tablet 81 mg PO DAILY 07/16/21 02/05/22 02/19/22 09:00 History Allergies Allergy/AdvReac Type Severity Reaction Status Date / Time ciprofloxacin (From Cipro) AdvReac Mild Unknown Verified 07/22/25 02:42 metronidazole AdvReac itching Verified 07/22/25 02:42 Review of Systems Review of Systems: All systems reviewed & are unremarkable except as noted in HPI and below PMFSH Past Medical History Medical History Hypertension Hyperlipidemia BPH (benign prostatic hyperplasia) Abdominal aortic aneurysm Diverticulitis Surgical History Surgical History History of carpal tunnel release 2021 No significant past surgical history Family History Family History Father Heart disease Mother Carcinoma of colon Social History Social History Smoking packs per day: 1.5 Smoking cigarettes per day: 30.0 Smoking status: Former smoker Tobacco type: cigarettes Smoking end date: 11/29/79 Alcohol intake: never Substance use: never Substance use type: does not use Living arrangements: with family Occupation/Education: retired Gender identity (if verbalized by the patient): Male Sexual Orientation (if Verbalized by the Patient): Straight or Heterosexual Spiritual care concerns: No Exam Const: General: healthy appearing Nutritional Appearance: well nourished Orientation/consciousness: patient oriented x3 Limitations: no limitations Neck: Neck: normal visual inspection, no lymphadenopathy, no meningeal signs and lymphadenopathy Chest: Chest palpation & inspection: normal inspection of the chest Resp: Effort & Inspection: normal respiratory effort Auscultation: clear to auscultation bilaterally Cardio: Rate: regular rate Rhythm: regular rhythm GI: GI Palp: Yes Soft to palpation and Yes Tenderness to palpation present (GI) Auscultation: normal bowel sounds : General: Yes bladder normal to palpation Back/Spine/Pelvis: Back: no CVA tenderness Skin: General skin exam: normal color Rashes: no rashes Wounds: no wounds Neuro: General: patient oriented x3, moves all extremities, no meningeal signs and no focal motor deficits Psych: Mental Status: mental status grossly normal Course Course Emergency Course: patient with some CT scan that showed uncomplicated diverticulitis hat a small amount of air in his [place] graft site on his aortic aneurysm repair and has a follow-up with his surgeon within the next 2 [place] [id number] patient received IV fluids and pain control and medicine for nausea. A dose of p.o. Augmentin was administered since has allergies to Cipro and Flagyl and Augmentin was sent to his pharmacy. Vital Signs Vital signs: Vital Signs Temperature 37.1 C 07/22/25 01:57 Pulse Rate 75 07/22/25 01:57 Respiratory Rate 18 07/22/25 01:57 Blood Pressure 129/67 07/22/25 01:57 Pulse Oximetry 95 07/22/25 01:57 Oxygen Delivery Room Air 07/22/25 01:57 Temperature 37.1 C 07/22/25 01:57 Pulse Rate 71 07/22/25 04:46 Respiratory Rate 18 07/22/25 04:46 Blood Pressure 117/61 07/22/25 04:46 Pulse Oximetry 96 07/22/25 04:46 Oxygen Delivery Room Air 07/22/25 04:46 MDM - Abdominal Pain Lab Data 07/22/25 02:21 07/22/25 02:21 Labs: Lab Results 07/22/25 Range/Units 02:21 WBC 12.6 H (4.8-10.8) K/mm3 RBC 4.13 L (4.70-6.10) M/mm3 Hgb 12.9 (12.4-15.3) g/dL Hct 39.4 (37.0-46.0) % MCV 95.4 (78.0-102.0) fL MCH 31.2 H (27.0-31.0) pg MCHC 32.7 (32-36) g/dL RDW 13.9 (11.6-14.4) % Plt Count 192 (150-420) K/mm3 MPV 10.2 (8.7-11.0) fl Immature Gran % (Auto) 0.6 H (0.0-0.0) % Neut % (Auto) 68.9 (50.0-70.0) % Lymph % (Auto) 17.4 L (18.0-42.0) % Randolph % (Auto) 9.6 (2.0-11.0) % Eos % (Auto) 3.1 (1.0-6.0) % Baso % (Auto) 0.4 (0.0-1.0) % Lymph # (Auto) 2.19 (1.10-4.50) K/mm3 Randolph # (Auto) 1.21 H (0.10-0.90) K/mm3 Eos # (Auto) 0.39 (0.02-0.50) K/mm3 Baso # (Auto) 0.05 (0.00-0.10) K/mm3 Abs Immat Gran (auto) 0.07 H (0.00-0.00) K/mm3 Absolute Neuts (auto) 8.67 H (1.70-7.20) K/mm3 Absolute Nucleated RBC 0.00 (0.00-0.00) K/mm3 Nucleated RBC % 0.0 (0-0.0) % PT 10.6 (9.50-12.1) Seconds INR 1.0 APTT 33.3 H (23.9-30.70) Sec Sodium 139 (137-145) mmol/L Potassium 4.2 (3.4-5.0) mmol/L Chloride 104 (98-107) mmol/L Carbon Dioxide 27 (22-30) mmol/L Anion Gap 8 (4-12) mmol/L BUN 19 (9-20) mg/dL Creatinine 0.82 (0.7-1.3) mg/dL Estim Creat Clear Calc 72 ml/min Estimated GFR > 60 (59 - ) Glucose 112 H (65-110) mg/dL Calculated Osmolality 291 (285-295) mOsm/kg Lactic Acid 1.1 (0.4-2.0) mmol/L Calcium 8.6 (8.4-10.2) mg/dL Total Bilirubin 1.0 (0.2-1.3) mg/dL AST 32 (17-59) U/L ALT 23 (6-50) U/L Alkaline Phosphatase 88 (38-126) U/L Troponin I < 0.012 (0.000-0.034) ng/mL Total Protein 6.7 (6.3-8.2) g/dL Albumin 4.0 (3.5-5.1) g/dL Lipase 99 (23-300) U/L Urine Color Yellow (Yellow) Urine Appearance Clear (Clear) Urine pH 6.0 (5.0-8.0) Ur Specific [place] 1.020 (1.010-1.020) Urine Protein Negative (Negative) Urine Glucose (UA) Negative (Negative) Urine Ketones Negative (Negative) Ur Blood (Man) 1+ H (Negative) Urine Nitrate Negative (Negative) Urine Bilirubin Negative (Negative) Urine Urobilinogen 0.2 (0.2-1.0) mg/dL Leukocyte Esterase Rfl Negative (Negative) RAMIRO/UL Urine RBC 3-5 H (0-2) /hpf Urine Mucus Moderate H /lpf Critical Care Time Critical Care Time Critical Care Time: No Discharge Plan Discharge Clinical Impression: Diverticulitis Patient Disposition: Home Condition: Stable Instructions: Antibiotic Form, Diverticulitis (ED) Additional Instructions: Advised patient to take medication as prescribed and follow with his surgeon for follow-up care Patient Language: Djiboutian Prescriptions: New amoxicillin-pot clavulanate [Augmentin] 500-125 mg tablet 1 tablet PO TID Qty: 30 0RF oxycodone-acetaminophen [Percocet] 5-325 mg tablet 1 tablet PO Q6H PRN (Reason: pain) Qty: 20 0RF No Action carvedilol 12.5 mg tablet 12.5 mg PO BID lovastatin 40 mg tablet 40 mg PO HS tamsulosin 0.4 mg capsule 0.4 mg PO HS lisinopril-hydrochlorothiazide 20-25 mg tablet 1 tablet PO DAILY finasteride 5 mg tablet 5 mg PO DAILY ondansetron HCl 4 mg tablet 4 mg PO Q4H PRN (Reason: nausea and vomiting) Qty: 40 0RF Rx Instructions: give 1st dose 30min before emetogenic chemo amoxicillin 500 mg capsule 500 mg PO TID 7 Days Qty: 21 0RF meclizine 25 mg tablet 25 mg PO TID Qty: 40 0RF Adult Aspirin 81 mg Tablet 81 mg PO DAILY Follow-up/Referrals: Alicja Severino MD [Primary Care Provider, Internal Medicine]
--- OUTSIDE RECORDS SUMMARY | 2025-07-22 02:04 | XMS_ITS | Clinical Summary ---
Author Organization [facility] Address [address] [place] [address] Care Team Providers Care Seafood Process Worker Name Role Phone Alicja Severino MD Primary Care Provider [phone] Criss Amezcua JEWELSMITH-BC Unavailable Wendie Schmidt MD Unavailable Allergies Active Allergy Reactions Criticality [...] Encounters Date Type Department Care Team Description 06/25/2025 8:30 AM CDT Office Visit [facility] [address] [address] Wendie Schmidt MD Heart Problem 06/25/2025 8:02 AM CDT - 06/25/2025 11:59 PM CDT Hospital Encounter [facility] [address] [address] Wendie Schmidt MD Discharge Disposition: Home or Self Care (Routine Discharge) 06/25/2025 Travel 06/20/2025 Orders Only [facility] [address] [place] [address] Wendie Schmidt MD 06/19/2025 Telephone [facility] [address] [place] [address] Wendie Schmidt MD Appointment Request 06/11/2025 9:49 AM CDT - 06/11/2025 11:59 PM CDT Hospital Encounter [facility] [address] [place] [address] Wendie Schmidt MD Discharge Disposition: Home or Self Care (Routine Discharge) 06/11/2025 Travel from Last 3 Months Family History Medical History Relation Comments Heart Attack Father Cancer Mother Relation Status Comments Father Mother Social History Tobacco Use Types Packs/Day Years Used Date Smoking Tobacco: Former Cigarettes Q uit: 1982 Smokeless Tobacco: Never Tobacco Cessation:Counseling Given: Yes Sex and Gender Information Value Date Recorded Sex Assigned at Male 06/25/2025 7:57 AM CDT Legal Sex Male 1:07 PM CDT Gender Identity Not on file Sexual Orientation Not on file Occupation Industry Job Start Date Job End Date retired Not on file Not on file Not on file Last Filed Vital Signs Vital Sign Reading Time Taken Comments Blood Pressure 134/61 06/25/2025 8:26 AM CDT Pulse 53 06/25/2025 8:26 AM CDT Temperature 36.5 C (97.7 F) 06/04/2020 11:49 AM CDT Respiratory Rate 16 06/25/2025 8:26 AM CDT Oxygen Saturation 98% 06/25/2025 8:26 AM CDT Inhaled Oxygen Concentration - - Weight 110 kg (242 lb 9.6 oz) 06/25/2025 8:26 AM CDT Height 177.8 cm (5' 10) 06/25/2025 8:26 AM CDT Body Mass Index 34.81 06/25/2025 8:26 AM CDT Plan of Treatment Upcoming Encounters Date Type Department Care Team (Late st Contact Info) Description 01/02/2026 8:30 AM SUPPLY CHAIN VICE PRESIDENT Office Visit [facility] [place] [address] Wendie Schmidt MD [address] [place], [place] [id number] Health Maintenance Due Date Last Done Comments [...] Date/Time Associated Diagnosis Comments ECG 12-LEAD Routine 06/25/2025 8:09 AM CDT Primary hypertension USE ECHOCARDIOGRAM Routine 06/11/2025 10 :42 AM CDT Aneurysm of ascending aorta without rupture from Last 3 Months Results * ECG 12 lead (HOSPITAL PERFORMED ONLY) (06/25/2025 8:09 AM CDT) 06/25/2025 8:09 AM CDT Narrative [facility] - 06/25/2025 10:05 PM CDT [address] [place] [address] Test Date: 2025-06-25 Pat Name: SUZANNE CLARK Department: 3 Room: Gender: Male Campus Recruiting Coordinator: : 1940 Requested By: WENDIE SCHMIDT Order Number: [id number] Reading MD: Wendie Schmidt Measurements Intervals [place] Rate: 55 P: 67 MA: 197 QRS: -14 QRSD: 105 T: 47 QT: 431 QTc: 413 Interpretive Statements SINUS BRADYCARDIA Procedure Note Wendie Schmidt MD - 06/25/[address] [place] [address] Test Date: 2025-06-25 Pat Name: SUZANNE CLARK Department: 3 Room: Gender: Male Campus Recruiting Coordinator: : 1940 Requested By: WENDIE SCHMIDT Order Number: [id number] Reading BERTA Schmidt Measurements Intervals [place] Rate: 55 P: 67 MA: 197 QRS: -14 QRSD: 105 T: 47 QT: 431 QTc: 413 Interpretive Statements SINUS BRADYCARDIA us Wendie Schmidt MD ECG ORDERABLES Final Result [facility] RAD * USE ECHOCARDIOGRAM (06/11/2025 10:42 AM CDT) Anatomical Region Laterality Modality Cardiac Ultrasound 06/11/2025 9:56 AM CDT Narrative 06/11/2025 7:21 PM CDT Echocardiography Report Pat.Name: Suzanne Clark Pat.ID: [id number] .Date: 06/11/2025 Refer.MD: Outreach, [facility] Exam Time: 9:56:00 AM Study Type:[facility] Height: 71 in Weight: 230 lb BSA: 2.24 m2 Age: 5 1940,85Y Sex: M Sonogrphr: Basilio Pat. Stat.:Outpatient Reason for Study:Aneurysm of ascending aorta without rupture Procedures: 2D, M-mode, Doppler, Color Flow, Study performed at [place], [place] and interpreted by [facility]. ++++++++++++++++++++++++++++++++++++ SUMMARY: ++++++++++++++++++++++++++++++++++++ The left [...] regurgitation. <Electronic Signature> 06/11/2025 07:21 PM Wendie Schmidt M.D. Procedure Note Wendie Schmidt MD - 06/11/2025 Echocardiography Report Pat.Name: Suzanne Clark tree [facility].ID: [id number] .Date: 06/11/2025 Refer.MD: Miladis, [facility] Exam Time: 9:56:00 AM Study Type:[facility] Height: 71 in Weight: 230 lb BSA: 2.24 m2 Age: 5 1940,85Y Sex: M Sonogrphr: Sf Pat. Stat.:Outpatient Reason for Study:Aneurysm of ascending aorta without rupture Procedures: 2D, M-mode, Doppler, Color Flow, Study performed at [facility], [place], [place] and interpreted by [facility]. ++++++++++++++++++++++++++++++++++++ SUMMARY: ++++++++++++++++++++++++++++++++++++ The left [...] regurgitation. <Electronic Signature> 06/11/2025 07:21 PM Wendie Schmidt M.D. Wendie Schmidt MD ECHO Final Result from Last 3 Months Insurance Advance Directives * Full Code (Latest Code Status on File) Date Activated Date Inactivated Comments 06/04/2020 3:32 PM 06/04/2020 8:14 PM Care Teams Seafood Process Worker Relationship Specialty Start Date End Date Alicja Severino MD [address] [place] [phone] PCP - General INTERNAL MEDICINE 05/07/20 Criss Amezcua, [facility] [address] [place] [address] NURSE PRACTITIONER 01/25/25 Wendie Schmidt MD [address] [place] [address] Consulting Physician CARDIOVASCULAR DISEASE 03/21/25
--- OUTSIDE RECORDS SUMMARY | 2025-07-22 02:04 | XMS_ITS | Clinical Summary ---
Author Organization [facility] Address [address] [place] [address] Care Team Providers Care Poultry Farm Worker Name Role Phone Alicja Severino MD Primary Care Provider [phone] Allergies No known active allergies Medications tamsulosin [...] on file Legal Sex Male 12:18 AM LEARNING COORDINATOR Gender Identity Not on file Sexual Orientation Not on file Obstetrics History Last Filed Vital Signs Vital Sign Reading Time Taken Comments Blood Pressure 166/89 02/06/2019 9:06 AM CDT Pulse 62 02/06/2019 9:06 AM CDT Temperature - - Respiratory Rate - - Oxygen Saturation 98% 02/06/2019 9:06 AM CDT Inhaled Oxygen Concentration - - Weight 105.2 kg (232 lb) 10/29/2021 8:05 AM LEARNING COORDINATOR Height 177.8 cm (5' 10) 02/06/2019 9:06 AM CDT Body Mass Index 33.29 02/06/2019 9:06 AM CDT Plan of Treatment Not on file [place] [address] [facility] [place] [address] Care Teams Poultry Farm Worker Relationship Specialty Start Date End Date Alicja Severino MD [address] [place], [place] [id number] PCP - General 02/22/17
--- NOTE | 2025-07-22 02:06 | PC.NURSE ---
PATIENT AMBULATED TO THE BATHROOM TO GIVE URINE SAMPLE.
--- NOTE | 2025-07-22 02:08 | PC.NURSE ---
NOTIFIED JENNA HERNANDEZ OF BLOOD WORK ORDERS. PATIENT IS BACK IN ROOM. URINE SAMPLE OBTAINED AND GIVEN TO JENNA.
[2025-07-22] MEDS: MORPHINE SULFATE (*CRX) 2 MG/ML INJ IV PUSH (02:15)
[2025-07-22] MEDS: SODIUM CHLORIDE 0.9% IV 1,000 ML 999 ML IV CONT (02:15)
[2025-07-22] MEDS: ONDANSETRON INJ 4 MG/2 ML VIAL IV PUSH (02:15)
--- NOTE | 2025-07-22 02:28 | PC.NURSE ---
JENNA WITH LAB HAS FINISHED DRAWING BLOOD WORK ORDERS. [facility] CURRENTLY AT THE BEDSIDE
--- NOTE | 2025-07-22 02:39 | PC.NURSE ---
RESTING QUIETLY ON STRETCHER. DAUGHTER AT HIS SIDE. CURRENTLY DENIES ANY OTHER NEEDS. AWARE OF CURRENT PLAN OF CARE. CALL LIGHT IN REACH. WARM BLANKET GIVEN.
[2025-07-22 02:45] LABS: Hematocrit 39.4 % (37.0-46.0); Hemoglobin 12.9 g/dL (12.4-15.3); Immature Granulocyte Percent A 0.6 % (0.0-0.0); Lymphocytes Absolute Auto 2.19 K/mm3 (1.10-4.50); Mean Corpuscular HGB Conc 32.7 g/dL (32-36); Mean Corpuscular Hemoglobin 31.2 pg (27.0-31.0); Mean Corpuscular Volume 95.4 fL (78.0-102.0); Nucleated Red Blood Cells Absolute Auto 0.00 K/mm3 (0.00-0.00); Nucleated Red Blood Cells Perc 0.0 % (0-0.0); Platelet Count Result 192 K/mm3 (150-420); Red Blood Count 4.13 M/mm3 (4.70-6.10); White Blood Count 12.6 K/mm3 (4.8-10.8)
[2025-07-22 02:51] LABS: Alanine Aminotransferase 23 U/L (6-50); Albumin Level 4.0 g/dL (3.5-5.1); Alkaline Phosphatase 88 U/L (38-126); Anion Gap 8 mmol/L (4-12); Aspartate Amino Transferase 32 U/L (17-59); Bilirubin,Total 1.0 mg/dL (0.2-1.3); Blood Urea Nitrogen 19 mg/dL (9-20); Calcium 8.6 mg/dL (8.4-10.2); Carbon Dioxide 27 mmol/L (22-30); Chloride 104 mmol/L (98-107); Estimated CRCL calculation 72 ml/min; Estimated Glomerular Filt Rate > 60; Glucose 112 mg/dL (65-110); Lipase 99 U/L (23-300); Osmolality Calculated 291 mOsm/kg (285-295); Potassium 4.2 mmol/L (3.4-5.0); Sodium 139 mmol/L (137-145); Total Protein 6.7 g/dL (6.3-8.2)
[2025-07-22 02:53] LABS: INR 1.0; Partial Thromboplastin Time 33.3 Sec (23.9-30.70); Prothrombin Time 10.6 Seconds (9.50-12.1)
[2025-07-22 02:55] LABS: Add Urine Microscopic? YES; Appearance Urine Clear (Clear); Glucose Urine UA Negative (Negative); Leukocyte Esterase Ur Negative LEU/UL (Negative); Nitrate Urine Negative (Negative); Specific Grav Ur 1.020 (1.010-1.020)
--- NOTE | 2025-07-22 02:58 | PC.NURSE ---
TRANSPORTED TO CT VIA STRETCHER
[2025-07-22 03:03] LABS: Troponin I < 0.012 ng/mL (0.000-0.034)
--- NOTE | 2025-07-22 03:37 | PC.NURSE ---
DAUGHTER AND PATIENT RESTING IN ROOM. UPDATED PATIENT ON DELAY WITH CT READ. VERBALIZED UNDERSTANDING. CURRENTLY DENIES ANY NEEDS. CALL LIGHT IN REACH
[2025-07-22 04:46] VITALS: BP 117/61; PULSE 71; RESP 18; O2SAT 96
--- NOTE | 2025-07-22 04:48 | PC.NURSE ---
PATIENT CURRENTLY RESTING ON STRETCHER. DAUGHTER AT HIS SIDE. CURRENTLY DENIES ANY NEEDS. WAITING ON CT RESULTS TO POST. CALL LIGHT IN REACH
--- NOTE | 2025-07-22 05:31 | PC.NURSE ---
RESTING ON STRETCHER. CONTINUE TO WAIT FOR CT RESULTS. PATIENT AND DAUGHTER BEING UNDERSTANDING OF THE WAIT. CALL LIGHT IN REACH
--- NOTE | 2025-07-22 05:35 | PC.NURSE ---
PATIENT AMBULATED TO THE BATHROOM WITHOUT DIFFICULTY
[2025-07-22 06:48] VITALS: BP 120/62; PULSE 68; RESP 18; O2SAT 100
--- NOTE | 2025-07-25 13:17 | PC.NURSE ---
PRELIMINARY BLOOD CULTURE NOT GROWTH IN 24 HOURS
--- NOTE | 2025-07-26 13:09 | PC.NURSE ---
preliminary blood cultures x2 reviewed. no growth in 48 hours
--- NOTE | 2025-07-28 17:27 | PC.NURSE ---
FINAL BLOOD CULTURE REPORT; NO GROWTH IN 5 DAY. NO FURTHER ACTION OR TREATMENT NEEDED.
== END 2025-07-22 06:48 | disposition home or self-care (01) ==
PROVIDERS: Emergency Provider Emergency Medicine; PCP Internal Medicine
DX: K57.92 Diverticulitis of intestine, part unspecified, without perforation or abscess without bleeding (principal); I10 Essential (primary) hypertension; E78.5 Hyperlipidemia, unspecified; Z87.891 Personal history of nicotine dependence
CPT/HCPCS: 36415; 74177; 80053; 81001; 83605; 83690; 84484; 85025; 85610; 85730; 87040; 93005; 96361; 96374; 96375; 99284; A9270; J2270; J2405; J7030; Q9967

== ENCOUNTER 2025-09-06 07:36 | Outpatient (CLI) | payer MEDICARE, SELFPAY ==
[2025-09-06 07:46] LABS: Hematocrit 40.4 % (37.0-46.0); Hemoglobin 12.9 g/dL (12.4-15.3); Mean Corpuscular HGB Conc 31.9 g/dL (32-36); Mean Corpuscular Hemoglobin 31.1 pg (27.0-31.0); Mean Corpuscular Volume 97.3 fL (78.0-102.0); Platelet Count Result 161 K/mm3 (150-420); Red Blood Count 4.15 M/mm3 (4.70-6.10); White Blood Count 8.0 K/mm3 (4.8-10.8)
== END 2025-09-06 07:37 | disposition home or self-care (01) ==
LOC: CHSLAB 07:37
PROVIDERS: PCP Internal Medicine; Visit Provider Internal Medicine
DX: D72.829 Elevated white blood cell count, unspecified (principal)
CPT/HCPCS: 36415; 85027

== ENCOUNTER 2025-10-29 07:16 | Outpatient (CLI) | payer MEDICARE, SELFPAY ==
--- OUTSIDE RECORDS SUMMARY | 2025-10-29 07:20 | XMS_ITS | Clinical Summary ---
Author Organization [facility] Address [address] [place] [address] Care Team Providers Care Director Of Flight Operations Name Role Phone Alicja Severino MD Primary Care Provider [phone] Criss Amezcua TRUER PINION AND WHEEL-BC Unavailable Wendie Bautista MD Unavailable Allergies Active [...] Dyslipidemia AAA (abdominal aortic aneurysm) without rupture Family History Medical History Relation Comments Heart [...] st Contact Info) Description 01/02/2026 8:30 AM EDITOR Office Visit [facility] [place] [address] Wendie Bautista MD [address] [place] [address] Health Maintenance Due Date Last Done Comments ASCVD Statin 1940 Annual Medicare Wellness Visit 2006 Pneumococcal Vaccine: 50+ Years (2 of 2 - PPSV23, PCV20, or PCV21) 11/19/2015 09/24/2015 RSV Immunization or 60+ Years (1 - 1-dose 75+ series) 2016 DTaP, Tdap and Td Vaccines ( 1 - Tdap) 04/06/2023 04/05/2023 COVID-19 Vaccine (4 - 2024-2 6 season) 2025 10/14/2021, 01/24/2021, 12/28/2020 Influenza Adult (#1) 2025 09/01/2013 Zoster Vaccines Completed 07/21/2019, 04/12/2019, 01/08/2014 Hepatitis A Vaccines Aged Out No long er eligible based on patient's age to complete this topic Meningococcal B Vaccine Aged Out No l onger eligible based on patient's age to complete this topic Meningococcal Vaccine Aged Out No ahsan kristen eligible based on patient's age to complete this topic RSV Immunizations Under 20 Months Aged Out No longer eligible b ased on patient's age to complete this topic Insurance [facility] [address] MEDICARE Advance Directives * Full Code (Latest Code Status on File) Date Activated Date Inactivated Comments 06/04/2020 3:32 PM 06/04/2020 8:14 PM Care Teams Director Of Flight Operations Relationship Specialty Start Date End Date Alicja Severino MD [address] [place] [phone] PCP - General INTERNAL MEDICINE 05/07/20 Criss Amezcua, [facility]- [address] [place] [phone] NURSE PRACTITIONER 01/25/25 Wendie Bautista MD [address] [place] [address] Consulting Physician CARDIOVASCULAR DISEASE 03/21/25
--- OUTSIDE RECORDS SUMMARY | 2025-10-29 07:20 | XMS_ITS | Clinical Summary ---
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 Gender Identity Not on file Sexual Orientation Not on file Last Filed Vital Signs Vital Sign Reading Time Taken Comments Blood Pressure 166/89 02/06/2019 9:06 AM CDT Pulse 62 02/06/2019 9:06 AM CDT Temperature - - Respiratory Rate - - Oxygen Saturation 98% 02/06/2019 9:06 AM CDT Inhaled Oxygen Concentration - - Weight 105.2 kg (232 lb) 10/29/2021 8:05 AM MOBILE DEVELOPER Height 177.8 cm (5' 10) 02/06/2019 9:06 AM CDT Body Mass Index 33.29 02/06/2019 9:06 AM CDT Plan of Treatment Not on file Insurance MEDICARE ADVANTAGE Care Teams District Plant Superintendent Relationship Specialty Start Date End Date Alicja Severino MD [address] [place] [address] PCP - General 02/22/17
[2025-10-29 07:39] LABS: Hematocrit 42.3 % (37.0-46.0); Hemoglobin 13.5 g/dL (12.4-15.3); Mean Corpuscular HGB Conc 31.9 g/dL (32-36); Mean Corpuscular Hemoglobin 30.9 pg (27.0-31.0); Mean Corpuscular Volume 96.8 fL (78.0-102.0); Platelet Count Result 164 K/mm3 (150-420); Red Blood Count 4.37 M/mm3 (4.70-6.10); White Blood Count 8.0 K/mm3 (4.8-10.8)
[2025-10-29 07:40] LABS: Add Urine Microscopic? YES; Appearance Urine Clear (Clear); Glucose Urine UA Negative (Negative); Leukocyte Esterase Ur Negative (Negative); Nitrate Urine Negative (Negative); Specific Grav Ur 1.020 (1.010-1.020)
[2025-10-29 08:03] LABS: Alanine Aminotransferase 15 U/L (6-50); Albumin Level 4.3 g/dL (3.5-5.1); Alkaline Phosphatase 74 U/L (38-126); Anion Gap 6 mmol/L (4-12); Aspartate Amino Transferase 23 U/L (17-59); Bilirubin,Total 0.6 mg/dL (0.2-1.3); Blood Urea Nitrogen 22 mg/dL (9-20); Calcium 9.0 mg/dL (8.4-10.2); Carbon Dioxide 33 mmol/L (22-30); Chloride 104 mmol/L (98-107); Cholesterol 167 mg/dL (0-200); Creatine Kinase 48 U/L (55-170); Estimated Glomerular Filt Rate > 60; Glucose 96 mg/dL (65-110); HDL Direct 52 mg/dL; Osmolality Calculated 299 mOsm/kg (285-295); Potassium 4.3 mmol/L (3.4-5.0); Sodium 143 mmol/L (137-145); Total Protein 6.6 g/dL (6.3-8.2); Triglycerides 108 mg/dL (<150)
[2025-10-29 08:04] LABS: Hemoglobin A1C 5.5 % (<5.7)
[2025-10-29 08:33] LABS: Prostate Specific Antigen 0.2 ng/mL (< OR = 4.0)
== END 2025-10-29 07:17 | disposition home or self-care (01) ==
LOC: CHSLAB 07:18
PROVIDERS: PCP Internal Medicine; Visit Provider Internal Medicine
DX: I10 Essential (primary) hypertension (principal); R73.01 Impaired fasting glucose; E78.2 Mixed hyperlipidemia; Z12.5 Encounter for screening for malignant neoplasm of prostate
CPT/HCPCS: 36415; 80053; 80061; 81001; 82550; 83036; 84153; 85027; G0103

== ENCOUNTER 2025-11-10 11:01 | Emergency (ER) | payer MEDICARE, SELFPAY ==
--- OUTSIDE RECORDS SUMMARY | 2025-11-10 11:03 | XMS_ITS | Clinical Summary ---
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 Gender Identity Not on file Sexual Orientation Not on file Last Filed Vital Signs Vital Sign Reading Time Taken Comments Blood Pressure 166/89 02/06/2019 9:06 AM CDT Pulse 62 02/06/2019 9:06 AM CDT Temperature - - Respiratory Rate - - Oxygen Saturation 98% 02/06/2019 9:06 AM CDT Inhaled Oxygen Concentration - - Weight 105.2 kg (232 lb) 10/29/2021 8:05 AM HOSPITALITY MANAGER Height 177.8 cm (5' 10) 02/06/2019 9:06 AM CDT Body Mass Index 33.29 02/06/2019 9:06 AM CDT Plan of Treatment Not on file Insurance MEDICARE ADVANTAGE Care Teams Logistics Engineering Manager Relationship Specialty Start Date End Date Alicja Severino MD [address] [place] [address] PCP - General 02/22/17
--- OUTSIDE RECORDS SUMMARY | 2025-11-10 11:03 | XMS_ITS | Clinical Summary ---
Author Organization [facility] Address [address] [place] [address] Care Team Providers Care Asic Engineer Name Role Phone Alicja Severino MD Primary Care Provider [phone] Criss Amezcua BOAT BUILDER AND REPAIRER-BC Unavailable Wendie Bautista MD Unavailable Allergies Active [...] st Contact Info) Description 01/02/2026 8:30 AM LONG WALL MINING MACHINE HELPER Office Visit [facility] [place] [address] Wendie Bautista MD [address] [place] [address] Health Maintenance Due Date Last Done Comments [...] patient's age to complete this topic Insurance [facility] [address] MEDICARE Advance Directives * Full Code (Latest Code Status on File) Date Activated Date Inactivated Comments 06/04/2020 3:32 PM 06/04/2020 8:14 PM Care Teams Asic Engineer Relationship Specialty Start Date End Date Alicja Severino MD [address] [place] [phone] PCP - General INTERNAL MEDICINE 05/07/20 Criss Amezcua, [facility]- [address] [place] [phone] NURSE PRACTITIONER 01/25/25 Wendie Bautista MD [address] [place] [address] Consulting Physician CARDIOVASCULAR DISEASE 03/21/25
[2025-11-10 11:21] VITALS: BP 189/79; PULSE 66; RESP 16; TEMP 36.6; O2SAT 96
--- NOTE | 2025-11-10 12:01 | ED.GENADULT ---
HPI - General Adult General Chief complaint: Unspecified Stated complaint: high blood pressure Time Seen by Provider: 11/10/25 11:03 Source: patient Mode of arrival: ambulatory Limitations: no limitations History of Present Illness HPI narrative: This is a 85-year-old male with history of hypertension presents with elevated blood pressure has been having some sinus congestion over the last 10 days with sinus pressure not taking any [id number] medications for fear he would interfere with his medication. Otherwise no chest pain or shortness of breath no blurry vision currently no headaches no chest tightness no abdominal pain no fever chills no dysuria or flank pain. Onset (ago): hour(s) Severity: mild Related Data Home Medications ?Medication ?Instructions ?Recorded ?Confirmed ?Last Taken ?Type carvedilol 12.5 mg tablet 12.5 mg PO BID 05/24/21 02/05/22 02/19/22 09:00 History finasteride 5 mg tablet 5 mg PO DAILY 05/24/21 02/05/22 02/19/22 09:00 History lisinopril 20 1 tablet PO DAILY 05/24/21 02/05/22 02/19/22 09:00 History mg-hydrochlorothiazide 25 mg tablet lovastatin 40 mg tablet 40 mg PO HS 05/24/21 02/05/22 02/19/22 09:00 History tamsulosin 0.4 mg capsule 0.4 mg PO HS 05/24/21 02/05/22 Unknown History aspirin 81 mg tablet 81 mg PO DAILY 07/16/21 02/05/22 02/19/22 09:00 History Allergies Allergy/AdvReac Type Severity Reaction Status Date / Time ciprofloxacin (From Cipro) AdvReac Mild Unknown Verified 11/10/25 11:20 metronidazole AdvReac itching Verified 11/10/25 11:20 Review of Systems Review of Systems: All systems reviewed & are unremarkable except as noted in HPI and below PMFSH Past Medical History Medical History Hypertension Hyperlipidemia BPH (benign prostatic hyperplasia) Abdominal aortic aneurysm Diverticulitis Surgical History Surgical History History of carpal tunnel release 2021 No significant past surgical history Family History Family History Father Heart disease Mother Carcinoma of colon Social History Social History Smoking packs per day: 1.5 Smoking cigarettes per day: 30.0 Smoking status: Former smoker Tobacco type: cigarettes Smoking end date: 11/29/79 Alcohol intake: never Substance use: never Substance use type: does not use Living arrangements: with family Occupation/Education: retired Gender identity (if verbalized by the patient): Male Sexual Orientation (if Verbalized by the Patient): Straight or Heterosexual Spiritual care concerns: No Exam Const: General: cooperative and healthy appearing HENMT: Head: normal to inspection Other: Frontal sinus and maxillary sinus tenderness palpation Eyes: General: appearance normal, both eyes and all related structures Neck: Neck: normal visual inspection, full ROM, no lymphadenopathy and no meningeal signs Chest: Chest palpation & inspection: normal inspection of the chest Resp: Effort & Inspection: normal respiratory effort and able to speak in complete sentences Cardio: Palpation: normal PMI Rate: regular rate Rhythm: regular rhythm Heart sounds: S1 normal heart sound present and S2 normal heart sound present Skin: General skin exam: normal color and no rashes or lesions noted Neuro: General: oriented to person, oriented to place, oriented to time, patient oriented x3, gait normal, tone normal and moves all extremities Extrem: General: normal to inspection, full ROM and capillary refill normal Course Course Emergency Course: Medical decision making Piedad of: The patient was evaluated by myself with the emergency department. History obtained from the patient as an embedding historian physical exam performed. External medical records reviewed. Patient did receive 5mg p.o. Norvasc and a dose of 500mg of Zithromax. Repeat assessment: Patient doing well on repeat exam with no acute distress Symptoms have improved since arrival to the emergency department with a systolic pressure of 154 Repeat vital stable Patient agreed and discussion after shared medical decision-making and agrees with discharge. All questions answered to patient's satisfaction Advised patient follow up with primary in 3 to 5 days. Vital Signs Vital signs: Vital Signs Temperature 36.6 C 11/10/25 11:21 Pulse Rate 66 11/10/25 11:21 Respiratory Rate 16 11/10/25 11:21 Blood Pressure 189/79 H 11/10/25 11:21 Pulse Oximetry 96 11/10/25 11:21 Oxygen Delivery Room Air 11/10/25 11:21 Temperature 36.6 C 11/10/25 11:21 Pulse Rate 66 11/10/25 11:21 Respiratory Rate 16 11/10/25 11:21 Blood Pressure 189/79 H 11/10/25 11:21 Pulse Oximetry 96 11/10/25 11:21 Oxygen Delivery Room Air 11/10/25 11:21 MDM Differential Diagnosis Differential Diagnosis: Hypertension/sinusitis Critical Care Time Critical Care Time Critical Care Time: No Discharge Plan Discharge Clinical Impression: Sinusitis Qualifiers: Sinusitis location: maxillary Patient Disposition: Home Condition: Stable Instructions: Antibiotic Form, Sinusitis (ED), Hypertension (ED) Additional Instructions: Advised to take medication as prescribed and follow-up with primary care physician within next 3 to 5 days for further evaluation treatment. Can take Claritin [id number] daily along with his nasal spray. Patient Language: Ukrainian Prescriptions: New azithromycin [Zithromax Z-Gama] 250 mg tablet See Rx Instructions .ROUTE .COMPLEX Qty: 6 0RF Rx Instructions: For 250 mg dose pack: take 500 mg today (day 1), then 250 mg for 4 days (days 2-5) No Action carvedilol 12.5 mg tablet 12.5 mg PO BID lovastatin 40 mg tablet 40 mg PO HS tamsulosin 0.4 mg capsule 0.4 mg PO HS lisinopril-hydrochlorothiazide 20-25 mg tablet 1 tablet PO DAILY finasteride 5 mg tablet 5 mg PO DAILY ondansetron HCl 4 mg tablet 4 mg PO Q4H PRN (Reason: nausea and vomiting) Qty: 40 0RF Rx Instructions: give 1st dose 30min before emetogenic chemo amoxicillin 500 mg capsule 500 mg PO TID 7 Days Qty: 21 0RF meclizine 25 mg tablet 25 mg PO TID Qty: 40 0RF Adult Aspirin 81 mg Tablet 81 mg PO DAILY amoxicillin-pot clavulanate [Augmentin] 500-125 mg tablet 1 tablet PO TID Qty: 30 0RF oxycodone-acetaminophen [Percocet] 5-325 mg tablet 1 tablet PO Q6H PRN (Reason: pain) Qty: 20 0RF Follow-up/Referrals: Alicja Severino MD [Primary Care Provider, Internal Medicine] Time of Disposition: 12:09
[2025-11-10] MEDS: AZITHROMYCIN 250 MG TABLET 500 MG PO (12:04)
[2025-11-10 12:31] VITALS: BP 157/76
== END 2025-11-10 12:42 | disposition home or self-care (01) ==
PROVIDERS: Emergency Provider Emergency Medicine; PCP Internal Medicine
DX: J32.0 Chronic maxillary sinusitis (principal); E78.5 Hyperlipidemia, unspecified; I10 Essential (primary) hypertension; Z87.891 Personal history of nicotine dependence
CPT/HCPCS: 99283; A9270

== ENCOUNTER 2025-11-14 22:48 | Emergency (ER) | payer MEDICARE, SELFPAY ==
[2025-11-14 22:49] VITALS: BP 180/83; PULSE 69; RESP 19; TEMP 36.2; O2SAT 96
[2025-11-14 22:53] VITALS: BP 155/72; PULSE 55; O2SAT 95
--- NOTE | 2025-11-14 22:59 | ED.GENADULT ---
HPI - General Adult General Chief complaint: Unspecified Stated complaint: concerns about bp Time Seen by Provider: 11/14/25 22:58 Source: patient and family Mode of arrival: ambulatory Limitations: no limitations History of Present Illness HPI narrative: 85 years old white male came to the ED by private car from home complaining of elevated blood pressure. Patient normally check his blood pressure every day in the morning. Tonight before going to bed having head cold for the last few days, checked his blood pressure and was 200/88. Patient denies any fever, chills, nausea, vomiting, chest pain, or shortness of breath. Patient lives alone, feel anxious. Related Data Home Medications ?Medication ?Instructions ?Recorded ?Confirmed ?Last Taken ?Type carvedilol 12.5 mg tablet 12.5 mg PO BID 05/24/21 02/05/22 02/19/22 09:00 History finasteride 5 mg tablet 5 mg PO DAILY 05/24/21 02/05/22 02/19/22 09:00 History lisinopril 20 1 tablet PO DAILY 05/24/21 02/05/22 02/19/22 09:00 History mg-hydrochlorothiazide 25 mg tablet lovastatin 40 mg tablet 40 mg PO HS 05/24/21 02/05/22 02/19/22 09:00 History tamsulosin 0.4 mg capsule 0.4 mg PO HS 05/24/21 02/05/22 Unknown History aspirin 81 mg tablet 81 mg PO DAILY 07/16/21 02/05/22 02/19/22 09:00 History Allergies Allergy/AdvReac Type Severity Reaction Status Date / Time ciprofloxacin (From Cipro) AdvReac Mild Unknown Verified 11/14/25 22:57 metronidazole AdvReac itching Verified 11/14/25 22:57 Review of Systems Review of Systems: All systems reviewed & are unremarkable except as noted in HPI and below PMFSH Past Medical History Medical History Hypertension Hyperlipidemia BPH (benign prostatic hyperplasia) Abdominal aortic aneurysm Diverticulitis Surgical History Surgical History History of carpal tunnel release 2021 No significant past surgical history Family History Family History Father Heart disease Mother Carcinoma of colon Social History Social History Smoking packs per day: 1.5 Smoking cigarettes per day: 30.0 Smoking status: Former smoker Tobacco type: cigarettes Smoking end date: 11/29/79 Alcohol intake: never Substance use: never Substance use type: does not use Living arrangements: with family Occupation/Education: retired Gender identity (if verbalized by the patient): Male Sexual Orientation (if Verbalized by the Patient): Straight or Heterosexual Spiritual care concerns: No Exam Narrative: General appearance: Well-developed, well-nourished Skin: Normal color Head: Normocephalic, nontraumatic Eyes: Clear conjunctiva ENT: Oropharynx normal, ears normal, nose normal Neck: Supple, nontender Chest and respiratory: Airway patent, no respiratory distress, no accessory muscle use Heart: Regular rate/rhythm Abdomen: Soft, nontender, no organomegaly, quiet bowel sounds Vascular: Normal peripheral pulses, normal capillary refill. Musculoskeletal: Normal range of motion, nontender back Neurologic: Alert and oriented ?3, SOFTWARE ENGINEERING SPECIALIST is normal as tested, no gross motor deficit Course Vital Signs Vital signs: Vital Signs Temperature 36.2 C L 11/14/25 22:49 Pulse Rate 69 11/14/25 22:49 Respiratory Rate 19 11/14/25 22:49 Blood Pressure 180/83 H 11/14/25 22:49 Pulse Oximetry 96 11/14/25 22:49 Oxygen Delivery Room Air 11/14/25 22:49 Temperature 36.2 C L 11/14/25 22:49 Pulse Rate 69 11/14/25 22:49 Respiratory Rate 19 11/14/25 22:49 Blood Pressure 180/83 H 11/14/25 22:49 Pulse Oximetry 96 11/14/25 22:49 Oxygen Delivery Room Air 11/14/25 22:49 MDM MDM Narrative Medical decision making narrative: Patient came to the ED with elevated blood pressure at home prior to arrival, 200/88. On arrival to the ED was 180/83 few minutes later 155/72 few minutes later 148/66 without any medical intervention. Patient denies any chest pain or shortness of breath or back pain. Anxiety is my concern. Patient lives alone, repeating his blood pressure check frequently in the last few days. Patient is scheduled to see his family physician in the morning. The pt was discharged to home.the pt,s condition upon discharge was fair,education was provided to the pt in reference to the final impression,discharge study results,treatment,prognosis and need for follow up . Differential Diagnosis Differential Diagnosis: Anxiety, uncontrolled hypertension Critical Care Time Critical Care Time Critical Care Time: No Discharge Plan Discharge Clinical Impression: Anxiety Patient Disposition: Home Condition: Improved Instructions: Anxiety (ED) Additional Instructions: Return if symptoms are worsening , call your family physician for appointment, take Tylenol as as needed for aches and pain, continue home medications. Patient Language: Norwegian Prescriptions: No Action carvedilol 12.5 mg tablet 12.5 mg PO BID lovastatin 40 mg tablet 40 mg PO HS tamsulosin 0.4 mg capsule 0.4 mg PO HS lisinopril-hydrochlorothiazide 20-25 mg tablet 1 tablet PO DAILY finasteride 5 mg tablet 5 mg PO DAILY ondansetron HCl 4 mg tablet 4 mg PO Q4H PRN (Reason: nausea and vomiting) Qty: 40 0RF Rx Instructions: give 1st dose 30min before emetogenic chemo amoxicillin 500 mg capsule 500 mg PO TID 7 Days Qty: 21 0RF meclizine 25 mg tablet 25 mg PO TID Qty: 40 0RF azithromycin [Zithromax Z-Gama] 250 mg tablet See Rx Instructions .ROUTE .COMPLEX Qty: 6 0RF Rx Instructions: For 250 mg dose pack: take 500 mg today (day 1), then 250 mg for 4 days (days 2-5) Adult Aspirin 81 mg Tablet 81 mg PO DAILY amoxicillin-pot clavulanate [Augmentin] 500-125 mg tablet 1 tablet PO TID Qty: 30 0RF oxycodone-acetaminophen [Percocet] 5-325 mg tablet 1 tablet PO Q6H PRN (Reason: pain) Qty: 20 0RF Follow-up/Referrals: Alicja Severino MD [Primary Care Provider, Internal Medicine]
--- NOTE | 2025-11-14 23:00 | PC.NURSE ---
DR CARUSO AT THE BEDSIDE
[2025-11-14 23:01] VITALS: BP 156/70; PULSE 58; RESP 16; O2SAT 94
[2025-11-14 23:16] VITALS: BP 148/66; PULSE 55; RESP 16; O2SAT 95
--- OUTSIDE RECORDS SUMMARY | 2025-11-14 23:17 | XMS_ITS | Continuity of Care Document ---
Author Organization [facility], [address] [facility] Address [address] [place] [address] Care Team Providers Care Hand Router Operator Name Role Phone ELEUTERIO DALE Primary Care Provider Assessment Encounter Date Assessment Date Assessment LastModified by Organization Details LastModified Time 08/16/2025 08/16/2025 This is an 85-year-old man who presents for follow-up of his abdominal aortic aneurysm status post an EVAR and left iliac branch endoprosthesis placement in June of 2025. Overall, he is doing well postoperatively. His access sites have healed well. His imaging shows that his stents are patent and appear in appropriate position without endoleak. I will plan to see him back in clinic in [address] scan. rust [email or web address] Not available 08/16/2025 10:57:04 Plan of Treatment Reminders Order Date Submit Date Provider Last Modified By Organization Details Last Modified Time Details Appointments Establish ed Patient 15.EST 2025 09:35A M Dr. Prerna Schmidt Not available Not available Not available Lab None recorded. Referral None recorded. Procedures None recorded. Surgeries None recorded. Imaging None recorded. Medication Orders None recorded. Patient TargetsNo targets recorded. Patient InstructionsNo instructions recorded. Reason for Referral None Reported. Results Created Date Observation Date Name Description Value Unit Range Abnormal Flag Note LastModifiedBy Organization Detail LastModifiedTime 08/13/2008/13/2025 CT, angio gram, abdom en + pelvi s, w/ contr ast [facility] [address] [place] [address] Teleph one Name: Steve Clark [id number] Exam Date: 2024 Age: 85 Physic bernardino: Katie ya MD, Prerna : 1939 Examin ation: CTA ABD/PE L W PLUS POST PROCES S EXAM: CTA of the abdome n and pelvis with contra st plus post proces s HISTOR Y: Histor y of abdomi nal aortic aneury sm repair . Survei llance . Denies any compla ints. Isovue 370 100mls , LACF. TECHNI QUE: Precon trast and postco ntrast arteri al and portal venous phase CT images of the abdome n and pelvis were obtain ed withou t and with IV contra st admini strati on. 100 mL of Isovue -370 was inject ed throug h the left antecu bital fossa IV site withou t eviden ce of advers e reacti on. Automa riley exposu re contro l was used as a dose optimi zation techni que for the examin ation. Rios l and sagitt al recomm end images and 3-D volume render ing images were obtain ed. COMPAR SHLOMO: 025. FINDIN GS: There is a new endogr aft repair of a fusifo rm infrar enal AAA since the compar shlomo exam. The aneury sm sac curren tly measur es 5.7 x 5.1 cm. No endole ak or retrop eriton eal hemorr jerry identi fied. The celiac axis, SMA, renal arteri es, CANDICE, common iliac, tree trimmer al and biology intern al iliac arteri es are patent . There is a patent right biology intern al iliac artery stent. The liver, gallbl adder, spleen , pancre as and adrena l glands are normal . There are few tiny benign renal cysts. No urolit hiasis or hydron ephros is presen t. There is diffus e coloni c divert iculos is. There is modera te prosta tomega ly. The stomac h, small intest ine and append ix are normal . There is a small fat-co ntaini ng umbili mariaelena hernia . Ureter s and urinar y bladde r normal . No ascite s or lympha denopa thy presen t. IMPRES ALISA: Interv al AAA repair with an endolu shonna stent graft. No compli cation . Electr onical ly signed in Gaona cribe by: CELIA VASQUEZ MD on:07/30 10:20 AM cc: Page PAGE 1 of [facility] ES 1 eserafin [facility] Only - [facility] Radiology [address] , [place], [address], 08/14/2025 08:48:40 Result Notes None recorded. Problems Name Problem SNOMED Code Status Onset Date Resolution Date Notes Provider Name and Address Organization Details Recorded Time Aneurysm of infrarenal abdominal aorta 353071820 Active 025 Kamila Christine [facility] 11:48:42 Problem Notes None recorded. Medical Equipment None [...] Not Available Not Available No t Available amoxicillin 500 mg-potassiu m clavulanate 125 mg tablet TAKE 1 TABLET BY MOUTH THREE TIMES DAILY 08/16 completed Not Available Not Available Not Available nystatin active Not Available Not Avai lable Not Available Allergy Relief (fluticason e) 50 mcg/actuati on nasal spray,suspe nsion [place] 1 spray every day by intranasa l route. active Not Available Not Available No t Available Paxlovid 300 mg (150 mg x 2)-100 mg tablets in a dose pack TAKE BY ORAL ROUTE 2 TIMES PER DAY PER PACKAGE DIRECTION S FOR 5 DAYS 05/17 completed Not Available Not Available Not Available Vitals Date Recorded Heart rate Respiratory rate Oxygen saturation Provider Name and Address Organization Details Last Updated DateTime 08/16/2025 54 /min 20 /min 97 % Kamila Christine [facility] 08/16/2025 10:24:34 Social History Question Answer Notes LastModified by Infrastruct Security ion Details LastModified Time Tobacco Smoking Status [...] Functional Status Question Answer Note LastModified by Jobinasecondizat ion Details LastModified Time How many times [...] available 05/10 11:09:52 Medical History Condition Response Anxiety Disorder N Diabetes N Bleeding Disorder N Attention-deficit Hyperactivity Disorder N High Blood Pressure Y Arthritis N Hyperlipidemia N Cancer N Thyroid Problems N Stroke N COPD N Depression N Asthma N Seizures N Anemia N Heart Disease N Fibromyalgia N Osteoporosis N Kidney Disease N Past Encounters Encounter ID Performer Location Encounter Start Date Encounter Closed Date Diagnosis/Indication Diagnosis SNOMED-CT Code Diagnosis ICD10 Code Diagnosis IMO Codes Diagnosis Note [id number] Prerna Schmidt MD [address] [facility] [address] [place] [phone] 08/16/2025 09:51:30 08/16/2025 10:37:57 Aneurysm of infrarenal abdominal aorta 109207653 I71.43 [id number] Health Concerns Section Related Observation LastModified by Organization Detai ls LastModified Time None Recorded Concern Status LastModified by Organization Details LastModified Time None Recorded Payers Encounter Date Sequence Insurance Name Policy Number Policy Farr Covered Member ID Farr Member ID Guarantor Name 08/16/2025 1 [facility] (MEDICARE REPLACEMENT/A DVANTAGE - PPO) [id number] Steve Clark [id number] Steve Clark Notes Date Note Type Note Provider Name and Address Organization Details Recorded Time 08/16/2025 text/html This is an 85-year-old man who presents for follow-up of his abdominal aortic aneurysm status post an EVAR with left iliac branch endoprosthesis placed about one month ago. He states overall he has been doing well since he got home. He denies any redness or drainage from his femoral access sites. He has been taking it fairly easy in terms of his activities. He denies any routine abdominal, back or flank pain. He did have a CT scan performed recently which I have reviewed. This demonstrates that his aortic endograft is widely patent as is his iliac branch device. There is no endoleak visualized. His aneurysm is measuring 5.3 cm in diameter which is essentially stable.rust Prerna Schmidt MD [address] [place] [address], [phone], [facility] 08/17/2025 12:07:47
--- OUTSIDE RECORDS SUMMARY | 2025-11-14 23:17 | XMS_ITS | Data Portability ---
Author Organization [facility], [address] [facility] ([place] Address [address] [place] [address] Care Team Providers Care Power Shovel Mechanic Name Role Phone ELEUTERIO DALE Primary Care [...] scheduled for him in the near future. J Not available 05/24/2025 17:56:12 08/16/2025 08/16/2025 This is an 85-year-old man [...] in [address] scan[address] [facility] Not available 08/16/2025 10:57:04 Plan of Treatment Reminders Order Date Submit Date Provider Last Modified By Organization Details Last Modified Time Details Appointments Establish ed Patient 15.EST 2025 09:35A M Dr. Preran Schmidt Not available Not available Not available [...] en + pelvi s, w/ contr ast [facility] [address] [place] [address] Teleph one Name: Steve Clark [id number] Exam Date: 2024 Age: 85 Physic bernardino: [...] SMA, renal arteri es, CANDICE, common iliac, mortgage branch manager al and software development intern al iliac arteri es are patent . There is a patent right software development intern al iliac artery stent. The liver, [...] 10:20 AM cc: Page PAGE 1 of [facility] ES 1 eserafin S[facility] Only - [facility] Radiology [address] [place] [address], [id number], 08/14/2025 08:48:40 Result Notes Documentation Provider Name and Address Organization Details Recorded Time Ct, Angiogram, Abdomen + Pelvis, W/ Contrast : [facility] [address] [place] [address] Name: Steve Clark Exam Date: 08/13/2025 Age: 85 Physician: MD Schmidt Emily : 1940 Examination: CTA ABD/PEL W PLUS POST PROCESS EXAM: CTA of the abdomen and pelvis with contrast plus post process HISTORY: History of abdominal aortic aneurysm repair. Surveillance. Denies any complaints. Isovue 370 100mls, LACF. TECHNIQUE: Precontrast and postcontrast arterial and portal venous phase CT images of the abdomen and pelvis were obtained without and with IV contrast administration. 100 mL of Isovue-370 was injected through the left antecubital fossa IV site without evidence of adverse reaction. Automated exposure control was used as a dose optimization technique for the examination. Coronal and sagittal recommend images and 3-D volume rendering images were obtained. COMPARISON: 04/13/2025. FINDINGS: There is a new endograft repair of a fusiform infrarenal AAA since the comparison exam. The aneurysm sac currently measures 5.7 x 5.1 cm. No endoleak or retroperitoneal hemorrhage identified. The celiac axis, SMA, renal arteries, CANDICE, common iliac, external and internal iliac arteries are patent. There is a patent right internal iliac artery stent. The liver, gallbladder, spleen, pancreas and adrenal glands are normal. There are few tiny benign renal cysts. No urolithiasis or hydronephrosis present. There is diffuse colonic diverticulosis. There is moderate prostatomegaly. The stomach, small intestine and appendix are normal. There is a small fat-containing umbilical hernia. Ureters and urinary bladder normal. No ascites or lymphadenopathy present. IMPRESSION: Interval AAA repair with an endoluminal stent graft. No complication. Electronically signed in SafedoXcribe by: CELIA VASQUEZ MD on:08/13/2025 10:20 AM cc: Page PAGE 1 of NUMPAGES 1 Prerna Schmidt MD [facility], [phone], [facility] 08/14/2025 08:48:40 Problems Name Problem SNOMED Code Status Onset Date Resolution Date Notes Provider Name and Address Organization Details Recorded Time Aneurysm of infrarenal abdominal aorta 041817749 Active 025 [facility] 11:48[facility] Problem Notes None recorded. Medical Equipment [...] e) 50 mcg/actuati on nasal spray,suspe nsion [place] 1 spray every day by intranasa l route. active Not Available Not Available No t Available Paxlovid 300 mg (150 mg x 2)-100 mg tablets in a dose pack TAKE BY ORAL ROUTE 2 TIMES PER DAY PER PACKAGE DIRECTION S FOR 5 DAYS 05/17 completed Not Available Not Available Not Available Vitals Date Recorded Heart rate Respiratory rate Oxygen saturation Systolic And Diastolic Provider Name and Address Organization Details Last Updated DateTime 05/17/2025 57 /min 20 /min 97 % 158/84 mm[Hg] [facility] 10:50:16 Date Recorded Heart rate Respiratory rate Oxygen saturation Provider Name and Address Organization Details Last Updated DateTime 08/16/2025 54 /min 20 /min 97 % [facility] 08/16/2025 10:24:34 Social History Question Answer Notes [...] ICD10 Code Diagnosis IMO Codes Diagnosis Note [id number] Prerna Schmidt MD [address] [facility] [address] [place] [phone] 05/17/2025 10:09:36 05/17/2025 12:03:26 Aneurysm of infrarenal abdominal aorta 761892227 I71.43 [id number] Prerna Schmidt MD [address] [facility] [address] [place] [address] 08/16/2025 09:51:30 08/16/2025 10:37:57 Aneurysm of infrarenal abdominal aorta [id number] I71.43 [id number] Health Concerns Section Related Observation LastModified by Organization Detai ls LastModified Time None Recorded Concern Status LastModified by Organization Details LastModified Time None Recorded Advance Directives Directive N: Payers Insurance Date Sequence Insurance Name Policy Number Policy Farr Covered Member ID Farr Member ID Guarantor Name 05/17/2025 1 [place] Steve Franco Ransom [id number] Steve Franco Eduardo 05/09/2025 1 *SELF PAY* No isi Franco Eduardo 08/15/2025 1 [facility] (MEDICARE REPLACEMENT/A DVANTAGE - PPO) [id number] Steve Franco Eduardo [id number] Steve Salvador Eduardo Notes Date Note Type Note Provider Name [...] without issue. Prerna Schmidt MD [address] [place] [address], [phone], [facility] 06/04/2025 09:41:04 08/16/2025 text/html This is an 85-year-old man [...] 5.3 cm in diameter which is essentially stable.[facility] Prerna Schmidt MD [address] [place] [address], [phone], [facility] 08/17/2025 12:07:47
--- OUTSIDE RECORDS SUMMARY | 2025-11-14 23:17 | XMS_ITS | Clinical Summary ---
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 Office Visit [facility] [place] [address] Wendie Bautista MD [address] [place] [address] Health Maintenance Due Date Last Done Comments [...] 01/24/2021, 12/28/2020 Influenza Adult (#1) 2025 09/01/2013 [facility] LDL 10/30/2025 10/30/2024, 05/01/2020 Zoster Vaccines Completed 07/21/2019, 04/12/2019, 01/08/2014 Hepatitis [...] Date/Time Associated Diagnosis Comments LIPID PANEL Routine 10/30/2024 from Last 3 Months or Most Recently Relevant to Health Maintenance Results * LIPID PANEL (10/30/2024) CHOLESTEROL 163 TRIGLYCERIDES 123 HDL 46 LDL (CALCULATED) 92 Narrative Resulting Agency Comment [facility] Alicja Severino MD LABORATORY Final Result from Last 3 Months or Most Recently Relevant to Health Maintenance Insurance [facility] MEDICARE Advance Directives * Full Code (Latest Code Status on File) Date Activated Date Inactivated Comments 06/04/2020 3:32 PM 06/04/2020 8:14 PM Care Teams Automobile Designer Relationship Specialty Start Date End Date Alicja Severino MD [address] [place] [address] PCP - General INTERNAL MEDICINE 05/07/20 Criss Amezcua, FAMILY HELPER- [address] [place] [phone] NURSE PRACTITIONER 01/25/25 Wendie Bautista MD [address] [place] [address] Consulting Physician CARDIOVASCULAR DISEASE 03/21/25
== END 2025-11-14 23:31 | disposition home or self-care (01) ==
PROVIDERS: Emergency Provider Emergency Medicine; PCP Internal Medicine
DX: F41.9 Anxiety disorder, unspecified (principal); I10 Essential (primary) hypertension; E78.5 Hyperlipidemia, unspecified; Z87.891 Personal history of nicotine dependence
CPT/HCPCS: 99281